=== PATIENT | female | born 1960 | race Caucasian/White ===

== ENCOUNTER 2021-11-15 10:04 | Outpatient (CLI) | payer BC, SELFPAY | END 2021-11-15 10:05 | disposition home or self-care (01) | LOC: NFLDREF 10:05 | PROVIDERS: PCP Internal Medicine; Visit Provider Registered Nurse | DX: E03.9 Hypothyroidism, unspecified (principal) | CPT/HCPCS: 84443 ==

== ENCOUNTER 2021-11-20 11:24 | Outpatient (CLI) | payer BC, SELFPAY ==
[2021-11-20 15:40] LABS: Cholesterol* 197 mg/dL (90-199)
[2021-11-20 15:41] LABS: HDL Cholesterol* 59 mg/dL (>=50); LDL Cholesterol Calculated 111 mg/dL (<100); Triglycerides* 136 mg/dL (40-149)
== END 2021-11-20 11:25 | disposition home or self-care (01) ==
LOC: NFLDREF 11:26
PROVIDERS: PCP Internal Medicine; Visit Provider Internal Medicine
DX: E78.5 Hyperlipidemia, unspecified (principal); E03.9 Hypothyroidism, unspecified; E66.9 Obesity, unspecified
CPT/HCPCS: 80061

== ENCOUNTER 2022-01-17 10:06 | Outpatient (CLI) | payer BC, SELFPAY ==
--- OUTSIDE RECORDS SUMMARY | 2022-01-17 10:08 | XMS_ITS | Clinical Summary ---
:1960 Author Organization [facility] [place] [address] Care Team Providers Name Role Phone Darby Bajwa MD Primary Care Provider Allergies No known active allergies Medications Medication Sig Dispensed Refills Start Date End Date Status METHOTREXATE SODIUM 2.5 taking 45 mg on 0 01/03/2009 Active MG TAB sundays TRIMETHOPRIM-SULFAMETHO daily 0 01/03/2009 Active XAZOLE 160 MG-800 MG TAB CALCIUM CITRATE + D 500 daily 0 01/03/2009 Active MG-200 UNIT CREAMY BITE CLONAZEPAM 0.5 MG TAB as hs for sleep 0 01/03/2009 Active FISH OIL 1,000 MG CAP 4162-3893 mg EPA 0 01/03/2009 Active + DHA daily VALTREX 1 G TAB take 1 caplet 0 01/03/2009 Active (1,000 mg) by oral route every 12 hours MULTIVITAMIN TAB take 1 tablet by 0 01/31/2009 Active oral route once daily with food COENZYME Q10 100 MG CAP Once daily 0 01/31/2009 Active Active Problems Problem Noted Date Leukemia 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, diagnosed at [facility] , on methotrexate and prednisone Immunizations Name Administration Dates Next Due Influenza, IIV3 (Age >=3 years) 02/25/2008, 03/12/2007 Family History Medical History Relation Name Comments Heart Disease Father Other Sister 3 pancytopenia Relation Name Status Comments Father Alive Mother Alive Sister 1 Alive Sister 2 Alive Sister 3 Social History Tobacco Use Types Packs/Day Years Used Date Never Smoker Alcohol Use Standard Drinks/Week Comments Yes 0 (1 standard drink = 0.6 oz pure at mos t one glass of wine daily alcohol) Alcohol Habits Answer Date Recorded How often do you have a drink Not asked containing alcohol? How many drinks containing alcohol do Not asked you have on a typical day when you are drinking? How often do you have six or more Not asked drinks on one occasion? Comment: at most one glass of wine daily 01/04/20 09 Sex Assigned at Date Recorded Not on file Obstetrics History Last Filed Vital Signs Vital Sign Reading Time Taken Comments Blood Pressure 109/70 01/31/2009 12:49 PM CDT Pulse 94 01/31/2009 12:49 PM CDT Temperature 36.7 ??C (98.1 ??F) 02/25/2008 12:13 PM PLASTICATOR Respiratory Rate - - Oxygen Saturation 100% 04/28/2008 1:03 PM PLASTICATOR Inhaled Oxygen Concentration - - Weight 78.4 kg (172 lb 12.8 oz) 01/31/2009 12:49 PM CDT Height - - Body Mass Index - - Plan of Treatment Health Maintenance Due Date Last Done Comments COVID-19 vaccine series (#1) 03/25/1962 Tdap 1972 Depression screening for age 12+ 1973 BMI (ht and wt on same day) for age 18+ 09/24/1979 Hepatitis C screening for age 18-79 09/24/1979 Tetanus booster 1981 Pap test for age 21-65 1982 Lipids for age 45-75 2006 Mammogram for age 45-75 2006 Zoster (shingles) series for age 50+ (1 of 09/24/2011 2) Influenza for age 50-64 12/14/2021 02/25/2008, 03/12/2007 Colonoscopy through age 75 01/03/2030 01/04/2020, 0 Results Not on filefrom Last 3 Months Insurance Payer Benefit Plan / Subscriber ID Effective Dates Phone Addre ss Type Group [facility] [id number] 2019-Present [address] [address] [place] [address] Care Teams Fern Cutter Relationship Specialty Start Date End Date Darby Bajwa MD PCP - General 01/31/09
--- NOTE | 2022-01-17 10:15 | CRLHL7_ITS ---
For Patients: As a result of the Century Cures Act, medical imaging exams and procedure reports are released immediately into your electronic medical record. You may view this report before your referring provider. If you have questions, please contact your health care provider. BILATERAL SCREENING MAMMOGRAM WITH COMPUTER-AIDED DETECTION AND TOMOSYNTHESIS TECHNIQUE: CC and MLO views were obtained. These mammographic images have been obtained using full-field digital technique. These mammographic images were interpreted with the benefit of computer-aided detection. Breast Tomosynthesis was used in this interpretation. COMPARISON FILM: 02/14/21, 02/24/20, 03/10/19. FINDINGS: The breasts are heterogeneously dense, which may obscure small masses IMPRESSION: There is no radiographic evidence for malignancy. ASSESSMENT: BI-RADS Category 2: Benign RECOMMENDATION: Routine screening mammogram in 1 year. A lay language report of this examination will be provided to the patient. Isa Enriquez M.D. Diagnostic/Breast Radiologist [email or web address] LUIS/Dictated by: Isa Enriquez MD @ 01/18/2022 9:02:00 AM (Electronically Signed)
== END 2022-01-17 10:07 | disposition home or self-care (01) ==
PROVIDERS: PCP Internal Medicine; Visit Provider Registered Nurse
DX: Z12.31 Encounter for screening mammogram for malignant neoplasm of breast (principal); R92.2 Inconclusive mammogram
CPT/HCPCS: 77063; 77067

== ENCOUNTER 2022-11-20 14:08 | Outpatient (CLI) | payer BC, SELFPAY | END 2022-11-20 14:09 | disposition home or self-care (01) | LOC: NFLDREF 14:09 | PROVIDERS: PCP Internal Medicine; Visit Provider Registered Nurse | DX: Z01.419 Encounter for gynecological examination (general) (routine) without abnormal findings (principal); E03.9 Hypothyroidism, unspecified | CPT/HCPCS: 84443 ==

== ENCOUNTER 2022-12-18 08:31 | Outpatient (CLI) | payer BC, SELFPAY | END 2022-12-18 08:32 | disposition home or self-care (01) | LOC: NFLDREF 12:52 | PROVIDERS: PCP Internal Medicine; Referring Provider Internal Medicine; Visit Provider Internal Medicine | DX: E03.9 Hypothyroidism, unspecified (principal); M85.80 Other specified disorders of bone density and structure, unspecified site; E78.5 Hyperlipidemia, unspecified | CPT/HCPCS: 80061; 82306; 84443 ==

== ENCOUNTER 2023-03-15 12:56 | Outpatient (CLI) | payer BC, SELFPAY ==
--- NOTE | 2023-03-15 13:00 | CRLHL7_ITS ---
For Patients: As a result of the Century Cures Act, medical imaging exams and procedure reports are released immediately into your electronic medical record. You may view this report before your referring provider. If you have questions, please contact your health care provider. BILATERAL SCREENING MAMMOGRAM WITH COMPUTER-AIDED DETECTION AND TOMOSYNTHESIS TECHNIQUE: CC and MLO views were obtained. These mammographic images have been obtained using full-field digital technique. These mammographic images were interpreted with the benefit of computer-aided detection. Breast Tomosynthesis was used in this interpretation. COMPARISON FILM: 01/17/22, 02/14/21, 02/24/20. FINDINGS: The breasts are heterogeneously dense, which may obscure small masses IMPRESSION: There is no radiographic evidence for malignancy. ASSESSMENT: BI-RADS Category 1: Negative RECOMMENDATION: Routine screening mammogram in 1 year. A lay language report of this examination will be provided to the patient. Slava Pacheco M.D. Diagnostic Radiologist [email or web address] Transcribed: 5:47 p.mIgor strickland/Dictated by: Slava Pacheco MD @ 03/18/2023 12:27:00 PM (Electronically Signed)
== END 2023-03-15 12:57 | disposition home or self-care (01) ==
LOC: MAMMO 12:57
PROVIDERS: PCP Internal Medicine; Visit Provider Internal Medicine
DX: Z12.31 Encounter for screening mammogram for malignant neoplasm of breast (principal); R92.2 Inconclusive mammogram
CPT/HCPCS: 77063; 77067

== ENCOUNTER 2023-09-23 15:30 | Outpatient (RCR) | payer BC, SELFPAY | END 2024-01-21 23:59 | disposition home or self-care (01) | PROVIDERS: PCP Internal Medicine; Visit Provider Family Medicine | DX: M25.552 Pain in left hip (principal); G89.29 Other chronic pain; M16.12 Unilateral primary osteoarthritis, left hip; M25.852 Other specified joint disorders, left hip; M25.652 Stiffness of left hip, not elsewhere classified; Z51.89 Encounter for other specified aftercare | CPT/HCPCS: 97110; 97140; 97161 ==

== ENCOUNTER 2023-12-18 13:52 | Outpatient (CLI) | payer BC, SELFPAY ==
--- OUTSIDE RECORDS SUMMARY | 2023-12-18 13:54 | XMS_ITS | Clinical Summary ---
Author Organization [facility] Address [address] [place] [address] Care Team Providers Care [employer] Name Role Phone Elsewhere, Pcp Primary Care Provider Unavailabl e Source Comments Patient records contain information from all sites at [facility]. For routine questions regarding patient records, call [phone] during business hours, M-F 8:00 AM - 5:00 PM Central Time. Record requests for emergency care only can be directed to [phone] at any time.[facility] Allergies Active Allergy Reactions Criticality Noted Date Comments Ceftriaxone Anaphylaxis High 09/27/2008 Itching/tightening inside throat Medications Medication Sig Dispensed Refills Start Date End Date Status calcium carbonate/vitamin D3 (CALCIUM 500 + D, D3, ORAL) Take 1 tablet by mouth daily. 03/18/2017 Active cholecalciferol (cholecalciferol) 1,000 Unit tablet Take 1 tablet by mouth daily. 10/26/2010 Active multivitamin tablet Take 1 tablet by mouth daily. 03/18/2017 Active levothyroxine (SYNTHROID, LEVOTHROID) 88 mcg tablet Take 1 tablet (88 mcg total) by mouth daily. 90 tablet 3 10/08/2017 Active acyclovir (ZOVIRAX) 400 mg tablet Take 1 tablet (400 mg total) by mouth as needed (as needed for cold sores). 11/11/2020 Active CALCIUM CITRATE-VITAMIN D3 ORAL Take by mouth daily. 01/03/2009 Active CeleBREX 200 mg capsule Take 200 mg by mouth as needed. 08/14/2023 Active folic acid 400 mcg tablet Take 400 mcg by mouth daily. Active simvastatin (Zocor) 10 mg tablet Take 10 mg by mouth daily. 06/08/2023 Active alendronate (Fosamax) 35 mg tablet Take 35 mg by mouth daily. 08/27/2023 Active valACYclovir (Valtrex) 1000 mg tablet Take 1,000 mg by mouth as needed. 01/03/2009 Active Active Problems Problem Noted Date Diagnosed Date Other Specified Aplastic Ane mias And Other Bone Marrow Failure Syndromes 11/05/2019 Overview (11/05/2019): 1. ??September 27, 2008. Presented with dyspnea and pancytopenia. ??Viral and nutritional workup neg. ??PNH negative. Bone marrow biopsy 30% cellular marrow with some areas of regeneration. There were no dysmorphic features identified. Chromosomes, flow cytometry, and MDS FISH panel normal. ??Clonal T-cell gene rearrangements detected raising the possibility of T-cell LGL leukemia, though no diagnostic morphologic features present. 2. ??October 27, 2008. Initiated treatment with prednisone 60 mg daily for 6 weeks. ??Improvement in neutropenia and transfusion requirements. ?? 3. ??Dec 09, 2008. Begin steroid taper and initiate treatment with Methotrexate. 4. ??January 20, 2009. ??Finished steroids. ??Continued methotrexate. ??Neutropenia improved, but thrombocytopenia and anemia persisted. LGL cells present in blood. 5. ??May 05, 2008. ??Counts continued to trend down on methotrexate. ??Methotrexate stopped and initiated therapy with cyclosporine. 6. ??August of 2008, increased creatinine and hypertension. ??Cyclosporin stopped with no improvement in counts. 7. ??November 2009, evaluation at [facility] by Dr. Jung, initiated treatment with Cytoxan 100 mg daily. 8. ??January 2010, severe pancytopenia following initial Cytoxan which was held. ??A re-trial of Cytoxan resulted in repeat episode of severe pancytopenia. ??Patient treated with antibiotics for bronchial infection. ??Cytoxan stopped. 9. ??March 02, 2010, re-evaluation at [facility]. 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 ??There was no diagnostic morphologic, flow, or molecular genetic features involvement of LGL leukemia. ??Remained severely pancytopenic with red blood cell transfusion requirements every two weeks. ?? 10. ??March 13 through March 19, 2010, hospitalized for treatment with steroids, ATG, and cyclosporin. ??Complications with asymptomatic sinus bradycardia requiring monitoring. ??LFT elevations and cyclosporin held. ??Patient started on tacrolimus. ??Steroids finished June 01, 2010. 11. ??May 2010 to present, continues on tacrolimus. ??Bone marrow biopsy November 06, 2010, reveals increase in cellularity to 40% with otherwise unremarkable erythropoiesis and no diagnostic features of a myelodysplastic syndrome or lymphoproliferative disorder. ??T-cell receptor gene rearrangement studies were negative, although a very small PNH clone was slightly increased on [facility] flow evaluation. ??In calendar year 2010, Mrs. Yuan required transfusion of 6 units of packed red blood cells. 12. ??January 2012, the patient went to [facility] and met with Dr. Joey Villarreal for a second opinion. ??Recommendations were to continue current management as she was not eligible for any clinical trials. 13. ??Patient had relatively stable counts and did not require any transfusions since November 08, 2011. 14. ??September 14, 2015, initiated taper of tacrolimus, given stable counts over the past two years. 15. ??January 13, 2016, completed the tacrolimus taper. 16. 11/05/19 : counts are all stable - will discuss with Dr. Bloom seeing her at one year interval Assessment & Plan (11/05/2019 4:39 PM CDT): She is doing excellent and her counts also look very good. The PNH is still pending. We will plan to to mail-in labs in 6 months and return visit in one year. I will discuss with Dr. Bloom if this sounds reasonable. PLAN: ?? CBC in 6 months mail in ?? Return visit in 1 year Anemia Aplastic 03/02/2010 Resolved Problems Problem Noted Date Diagnosed Date Resolved Date Pancytopenia 09/27/2008 11/14/2020 Encounters Date Type Department Care Team Description 12/13/2023 Orders Only Department of Orthopedic Surgery in [place], [place] [address] [place] [address] Cari Núñez, RIgorN. Primary Osteoarthritis Hip Left (Primary Dx); Pain Hip Left 12/11/2023 3:00 PM CDT Telemedicine Department of Patient Education in [address] [phone] Mohit Stephenson M.D. Primary Osteoarthritis Hip Left 11/20/2023 Clinical Communication Department of Orthopedic Surgery in [address] [phone] Luciano Shepherd M.D. Document needed from Pre-cert 10/24/2023 Orders Only Department of Orthopedic Surgery in [address] [phone] Cari Núñez R.N. Allergy Antibiotic Personal History (Primary Dx); Primary Osteoarthritis Hip Left; Pain Hip Left; Anemia Aplastic (HCC); Preanesthetic Medical Exam 10/23/2023 11:45 AM CDT Office Visit Department of Orthopedic Surgery in [address] [phone] Luciano Shepherd M.D. Primary Osteoarthritis Hip Left (Primary Dx) 10/23/2023 11:00 AM CDT Ancillary Procedure Department of Orthopedic Surgery 10/23/2023 10:26 AM CDT - 10/23/2023 11:59 PM CDT Hospital Encounter Department of Radiology, [facility], in [address] [phone] Luciano Shepherd M.D. Pain Hip Left Discharge Disposition: Home or Self Care 10/21/2023 12:30 PM CDT Clinical Communication Virtual Review in [address] [address] Pre-visit Intake 10/21/2023 Clinical Communication Department of Orthopedic Surgery in [address] [phone] Luciano Shepherd M.D. Phone Contact 09/30/2023 Clinical Communication Department of Orthopedic Surgery in [address] [address] Luciano Shepherd M.D. Appointment (Return left hip) from Last 3 Months Immunizations Name Administration Dates Next Due Influenza Split 01/15/2011 PPSV23 04/15/2011 SARS-COV-2 (COVID-19) - MODERNA(Discontinued) Tdap 04/15/2010,10/13/2002 Social History Tobacco Use Types Packs/Day Years Used Date Smoking Tobacco: Never Smokeless Tobacco: Never [facility] Utilities Answer Date Recorded In the past 12 months has th e electric, gas, oil, or water company threatened to shut off services in your home? No 10/18/2023 Exercise Vital Sign Answer Date Recorde d On average, how many days pe r week do you engage in moderate to strenuous exercise (like a brisk walk)? 0 days 10/18/2023 On average, how many minutes do you engage in exercise at this level? 10 min 10/18/2023 Hunger Vital Sign Answer Date Recorded Within the past 12 months, y ou worried that your food would run out before you got the money to buy more. Never true 10/18/19 Within the past 12 months, t he food you bought just didn't last and you didn't have money to get more. Never true 10/18/2023 PRAPARE - Transportation Answer Date Re corded In the past 12 months, has l ack of transportation kept you from medical appointments or from getting medications? No 08/2023 In the past 12 months, has l ack of transportation kept you from meetings, work, or from getting things needed for daily living? No 10/18/2023 Nutrition Answer Date Recorded On average, how many serving s of fruits and vegetables do you eat per day (serving size is equal to 1 cup or approximately the size of a tennis ball)? 0-2 10/18/2023 Dental Answer Date Recorded Dental: Regular Dentist Yes 10/18/19 Employment Answer Date Recorded Employment status Employed and actively working without restrictions 10/18/2023 Housing Stability Answer Date Recorded What is your living situation today? I have a [facility] place to live 10/18/2023 Sex and Gender Information Value Date Recorded Sex Assigned at Female 01/02/2021 12:49 PM CDT Gender Identity Female 01/02/2021 12:49 PM CDT Sexual Orientation Straight 01/02/2021 12 :49 PM CDT Last Filed Vital Signs Vital Sign Reading Time Taken Comments Blood Pressure 131/82 11/11/2020 10:01 AM CDT Pulse 59 11/11/2020 10:01 AM CDT Temperature 36.1 ??C (96.9 ??F) 11/11/2020 10:01 AM C DT Respiratory Rate - - Oxygen Saturation - - Inhaled Oxygen Concentration - - Weight 91.3 kg (201 lb 6.2 oz) 11/11/2020 10:01 AM CDT Height 167.9 cm (5' 6.1) 11/11/2020 10:01 AM CD T Body Mass Index 32.4 11/11/2020 10:01 AM CDT Plan of Treatment Upcoming Encounters Date Type Department Care Team (Latest Contact Info) Description 12/24/2023 10:15 AM CDT Clinical Communication Virtual Review in [place], [place] [address] [place] [address] 12/25/2023 10:20 AM CDT Appointment Department of Laboratory Medicine in [address] [phone] Luciano Shepherd M.D. [address] [place] [phone] 12/26/2023 10:00 AM CDT Office Visit Department of Orthopedic Surgery in [address] [phone] Luciano Shepherd M.D. [address] [place] [phone] Cari Núñez R.N. [address] [place] [phone] 12/26/2023 11:00 AM CDT Comprehensive Visit Department of Physical Medicine and Rehabilitation in [place], [place] [address] [place] [phone] Mohit Stephenson M.D. [address] [place] [phone] Rossy Carlson, [facility] 12/26/2023 1:15 PM CDT Clinical Support Division of Allergic Diseases in [place], [place] [address] [place] [phone] Luciano Shepherd M.D. [address] [place] [phone] 12/26/2023 2:00 PM CDT Comprehensive Visit Division of Allergic Diseases in [place], [place] [address] [place] [phone] Kailey Li P.A.-Megan., M.S. [address] [place] [phone] 12/26/2023 3:00 PM CDT Comprehensive Visit Preoperative Evaluation Center in [place], [place] [address] [place] [phone] Luciano Shepherd M.D. [address] [place] [phone] 12/27/2023 8:00 AM CDT Comprehensive Visit Department of Physical Medicine and Rehabilitation in [place], [place] [address] [place] [phone] Mohit Stephenson M.D. [address] [place] [phone] Jennifer Garcia O.T., MOT [address] [place] [phone] 12/30/2023 7:55 AM CDT Hospital Encounter [facility] 01 4 AM ADMIT [address] [place] [phone] Luciano Shepherd M.D. [address] [place] [phone] 12/30/2023 7:55 AM CDT - 12/30/2023 10:32 AM CDT Surgery [facility] [address] [place] [address] Luciano Shepherd M.D. [address] [place] [address] ARTHROPLASTY REPLACEMENT TOTAL HIP with computer-assisted navigation (OrthAlign) Scheduled Procedures Name Priority Associated Diagnoses Date/Ti me ARTHROPLASTY REPLACEMENT TOTAL HIP Other Specified Arthritis Left Hip 12/30/2023 7:55 AM CDT Health Maintenance Due Date Last Done Comments CT Colonography 1960 Cologuard 1960 FIT 1960 Cervical Cancer Screening 10/11/20132010 (Performed elsewhere) Mammogram 01/13/2014 01/13/2013 (Perf ormed elsewhere), 01/14/2012 (Performed elsewhere), 10/18/2010 (Performed elsewhere) Lipid (Cholesterol) Screening 10/12/2015 10/11/2010 (Performed elsewhere) Thyroid Stimulating Hormone (TSH) test for thyroid function 09/16/2018 09/16/2017, 03/18/2017, 09/19/2016, Additional history exists Depression Screening (Annual PHQ-2) 04/15/2023 Fasting Glucose for Diabetes Screening 11/11/2023 11/10/2020, 03/14/2016, 01/25/2014, Additional history exists Influenza Vaccine (#1) 2024 3, 02/01/2022, 01/16/2021, Additional history exists Colonoscopy 01/03/2030 01/04/2020, 10/13, 10/13/2010 (Performed elsewhere) Colorectal Cancer Screening 01/03/2030 DTaP,Tdap,and Td Vaccines (4 - Td or Tdap) 01/16/2031 01/16/2021, 04/15/2010, 10/13/2002 HIV Screening Completed 09/27/2008 Hepatitis C Screening Completed 09/27/2008 Pneumococcal vaccine (0-64 years) Aged Out 01/17/2012, 04/15/2011 No longer eligibl e based on patient's age to complete this topic Zoster Vaccines Completed 05/27/2019, 03/27/2019 COVID-19 Vaccine Completed 01/10/2023, 09/2021, 07/18/2021, Additional history exists HPV Vaccines Aged Out No longer eligi ble based on patient's age to complete this topic Procedures Procedure Name Priority Date/Time Associated Diagnosis Comments ORTHOPEDIC SURGERY IMAGE EXAM Routine 10/23/2023 11:00 AM CDT DX HIP AND PELVIS LEFT 2-3 VIEWS RAD - Routine (most inpatients and all outpatients) 10/23/2023 10:44 AM CDT Pain Hip Left BASIC METABOLIC PANEL, S/P Routine 11/10/2020 10:19 AM CDT Pancytopenia (HCC) Anemia Aplastic (HCC) Other Specified Aplastic Anemias And Other Bone Marrow Failure Syndromes (HCC) THYROID FUNCTION CASCADE, S Routine 09/16/2017 11:44 AM CDT Anemia Aplastic (HCC) from Last 3 Months or Most Recently Relevant to Health Maintenance Results * DX HIP AND PELVIS LEFT 2-3 VIEWS-Orthopedic Surgery Image Exam (10/23/2023 11:00 AM CDT) Narrative IIMS - 12/16/2023 1:14 PM CDT This order has been created and auto-finalized to support the import of images acquired without order. The clinical documentation to support these images can be found on the encounter that produced images. Provider Not In System IMG NON RAD IMAGI NG PROCEDURES IIMS NA * DX Hip And Pelvis Left 2-3 Views (10/23/2023 10:44 AM CDT) Anatomical Region Laterality Modality Lower Extremity, Pelvis, Hip , Musculoskeletal RST LOS, Musculoskeletal ARZ LOS, Muskuloskeletal FLA LOS Left Digit al Radiography Impressions 10/23/2023 11:15 AM CDT Severe degenerative changes of the bilateral hip joints, left greater than right. Large osteophyte formation in the left hip joint with subchondral sclerosis and cystic changes, progressed since 2012. No discrete subchondral collapse. No acute fracture or dislocation. Scattered degenerative changes of the visualized lumbar spine and pubic symphysis. Narrative 10/23/2023 11:15 AM CDT EXAM: ??DX HIP AND PELVIS LEFT 2-[address] Reddy M.D. - 10/23/2023 EXAM: DX HIP AND PELVIS LEFT 2-3 VIEWS IMPRESSION: Severe degenerative changes of the bilateral hip joints, left greater thanright. Large osteophyte formation in the left hip joint with subchondralsclerosis and cystic changes, progressed since 2012. No discretesubchondral collapse. No acute fracture or dislocation. Scattered degenerative changes of thevisualized lumbar spine and pubic symphysis. Luciano Shepherd M.D. [facility] ING PROCEDURES * (ABNORMAL) Basic Metabolic Panel (11/10/2020 10:19 AM CDT) Potassium, P 4.8 3.6 - 5.2 mmol/L 11/10/2020 10:57 AM CDT CNFL Sodium, P 137 135 - 145 mmol/L 11/10/2020 10:57 AM CDT CNFL Chloride, P 104 98 - 107 mmol/L 11/10/2020 10:57 AM CDT CNFL Bicarbonate, P 23 22 - 29 mmol/L 11/10/2020 10:57 AM CDT CNFL Anion Gap, P 10 7 - 15 11/10/2020 10:57 AM CDT CNFL BUN (Blood Urea Nitrogen), P 22(H) 6 - 21 mg/dL 11/10/2020 10:57 AM CDT CNFL Creatinine 1.21(H) 0.59 - 1.04 mg/dL 11/10/2020 10:57 AM CDT CNFL eGFR-Black/Afri can Prydeinig 57(L) >=60 mL/min/BSA 11/10/2020 10:57 AM CDT CNFL Comment: ----ADDITIONAL INFORMATION---- Estimated GFR calculated using the 2009 CKD_EPI creatinine equation. eGFR Non-Black/Afric an Prydeinig 49(L) >=60 mL/min/BSA 11/10/2020 10:57 AM CDT CNFL Comment: ----ADDITIONAL INFORMATION---- Estimated GFR calculated using the 2009 CKD_EPI creatinine equation. Calcium, Total, P 9.3 8.6 - 10.0 mg/dL 11/10/2020 10:57 AM CDT CNFL Glucose, P 105 70 - 140 mg/dL 11/10/2020 10:57 AM CDT CNFL Blood (Blood, Venous) 11/10/2020 10:19 AM CDT 11/10/2020 10:21 AM CDT Gene Parr M.D. LAB BLOOD ADD-ON [facility] [address] [place] [address], [facility] [place] [address] * Thyroid Function [place] (09/16/2017 11:44 AM CDT) TSH, Sensitive 3.8 0.3 - 4.2 mIU/L 09/16/2017 12:56 PM CDT [facility] Blood 09/16/2017 11:4 4 AM CDT 09/16/2017 12:06 PM CDT Iqra Hurt M.D., M.P.H. LAB BLOOD ADD -ON [facility] [address] [place] [id number] from Last 3 Months or Most Recently Relevant to Health Maintenance Care Teams [employer] Relationship Specialty Start Date End Date Elsewhere, Pcp PCP - General Family Medicine 12/01/20
--- OUTSIDE RECORDS SUMMARY | 2023-12-18 13:55 | XMS_ITS | Encounter Summary ---
Author Organization [facility] Address [address] [place] [address] Care Team Providers Care Body And Fender Mechanic Name Role Phone Elsewhere, Pcp Primary Care Provider Unavailabl e Reason for Visit * Reason Comments Patient Education Encounter Details Date Type Department Care Team (Latest Contact Info) Description 12/11/2023 3:00 PM CDT Telemedicine Department of Patient Education in [place], [place] [address] [place] [address] Mohit Stephenson M.D. [address] [place] [phone] Primary Osteoarthritis Hip Left Social History Tobacco Use Types Packs/Day Years Used Date Smoking Tobacco: Never Smokeless Tobacco: Never [facility] Utilities Answer Date Recorded In the past 12 months has [facility] [employer], gas, oil, or water [employer] threatened to shut off services in your [...] money to buy more. Never true 10/18/19 24 Within the past 12 months, t he [...] your living situation today? I have a [facility] place to live 10/18/2023 Sex and Gender Information Value Date Recorded Sex Assigned at Female 01/02/2021 12:49 PM CDT Gender Identity Female 01/02/2021 12:49 PM CDT Sexual Orientation Straight 01/02/2021 12 :49 PM CDT documented as of this encounter Plan of Treatment Upcoming Encounters Date Type Department Care Team (Latest Contact Info) Description 12/24/2023 10:15 AM CDT Clinical Communication Virtual Review in [place], [place] 200 [place] [address] 12/25/2023 10:20 AM CDT Appointment Department of Laboratory Medicine in [address] [phone] Luciano Shepherd M.D. [address] [place] [phone] 12/26/2023 10:00 AM CDT Office Visit Department of Orthopedic Surgery in [place], [place] [address] [place] [phone] Luciano Shepherd M.D. [address] [place] [phone] Cari Núñez R.N. [address] [place] [phone] 12/26/2023 11:00 AM CDT Comprehensive Visit Department of Physical Medicine and Rehabilitation in [place], [place] [address] [place] [phone] Mohit Stephenson M.D. [address] [place] [phone] Rossy Calrson, [facility] 12/26/2023 1:15 PM CDT Clinical Support Division of Allergic Diseases in [place], [place] [address] [place] [phone] Luciano Shepherd M.D. [address] [place] [phone] 12/26/2023 2:00 PM CDT Comprehensive Visit Division of Allergic Diseases in [place], [place] [address] [place] [phone] Kailey Li, P.A.-C., M.S. [address] [place] [phone] 12/26/2023 3:00 PM CDT Comprehensive Visit Preoperative Evaluation Center in [place], [place] [address] [place] [phone] Luciano Shepherd M.D. [address] [place] [phone] 12/27/2023 8:00 AM CDT Comprehensive Visit Department of Physical Medicine and Rehabilitation in [place], [place] [address] [place] [phone] Mohit Stephenson M.D. [address] [place] [phone] Jennifer Garcia O.T., [facility] [address] [place] [phone] 12/30/2023 7:55 AM CDT Hospital Encounter [facility] 01 4 AM ADMIT [address] [place] [address] Luciano Shepherd M.D. [address] [place] [phone] 12/30/2023 7:55 AM CDT - 12/30/2023 10:32 AM CDT Surgery RST RO MAIN OR [address] [place] [address] Luciano Shepherd M.D. [address] [place] [phone] ARTHROPLASTY REPLACEMENT TOTAL HIP with computer-assisted navigation (OrthAlign) Scheduled Procedures Name Priority Associated Diagnoses Date/Ti me ARTHROPLASTY REPLACEMENT TOTAL HIP Other Specified Arthritis Left Hip 12/30/2023 7:55 AM CDT documented as of this encounter Visit Diagnoses Diagnosis Primary Osteoarthritis Hip Left Other Specified Arthritis Left Hip documented in this encounter Care Teams Body And Fender Mechanic Relationship Specialty Start Date End Date Elsewhere, Pcp PCP - General Family Medicine 12/01/20 documented as of this encounter
--- OUTSIDE RECORDS SUMMARY | 2023-12-18 13:55 | XMS_ITS | Encounter Summary ---
Author Organization [facility] Address [address] [place] [address] Care Team Providers Care Data Management Name Role Phone Elsewhere, Pcp Primary Care Provider Unavailabl e Reason for Visit * Reason Onset Date Comments Pre-visit Intake 10/21/2023 Encounter Details Date Type Department Care Team (Latest Contact Info) Description 10/21/2023 12:30 PM CDT Clinical Communication Virtual Review in [place], [place] 200 [place] [address] Pre-visit Intake Social History Tobacco Use Types Packs/Day Years Used Date Smoking Tobacco: Never Smokeless Tobacco: Never [facility] Utilities Answer Date Recorded In [...] your living situation today? I have a [facility] place to live 10/18/2023 Sex and Gender Information Value Date Recorded Sex Assigned at Female 01/02/2021 12:49 PM CDT Gender Identity Female 01/02/2021 12:49 PM CDT Sexual Orientation Straight 01/02/2021 12 :49 PM CDT documented as of this encounter Plan of Treatment Upcoming Encounters Date Type Department Care Team (Latest Contact Info) Description 12/24/2023 10:15 AM CDT Clinical Communication Virtual Review in [place], [place] 200 [place] [address] 12/25/2023 10:20 AM CDT Appointment Department of Laboratory Medicine in [address] [phone] Luciano Shepherd M.D. [address] [place] [phone] 12/26/2023 10:00 AM CDT Office Visit Department of Orthopedic Surgery in [place], [place] [address] [place] [phone] Luciano Shepherd M.D. [address] [place] [phone] Cari Núñez R.N. [address] [place] [phone] 12/26/2023 11:00 AM CDT Comprehensive Visit Department of Physical Medicine and Rehabilitation in [place], [place] [address] [place] [address] Mohit Stephenson M.D. [address] [place] [phone] Rossy Carlson, [facility] 12/26/2023 1:15 PM CDT Clinical Support Division of Allergic Diseases in [place], [place] [address] [place] [phone] Luciano Shepherd M.D. [address] [place] [phone] 12/26/2023 2:00 PM CDT Comprehensive Visit Division of Allergic Diseases in [place], [place] [address] [place] [address] Kailey Li, P.Katheryn.-Megan., M.S. [address] [place] [phone] 12/26/2023 3:00 PM CDT Comprehensive Visit Preoperative Evaluation Center in [place], [place] [address] [place] [address] Luciano Shepherd M.D. [address] [place] [phone] 12/27/2023 8:00 AM CDT Comprehensive Visit Department of Physical Medicine and Rehabilitation in [place], [place] [address] [place] [address] Mohit Stephenson M.D. [address] [place] [phone] Jennifer Garcia O.T., MOT [address] [place] [phone] 12/30/2023 7:55 AM CDT Hospital Encounter [facility] 01 4 AM ADMIT [address] [place] [address] Luciano Shepherd M.D. [address] [place] [address] 12/30/2023 7:55 AM CDT - 12/30/2023 10:32 AM CDT Surgery [facility] MAIN OR [address] [place] [address] Luciano Shepherd M.D. [address] [place] [address] ARTHROPLASTY REPLACEMENT TOTAL HIP with computer-assisted navigation (OrthAlign) Scheduled Procedures Name Priority Associated Diagnoses Date/Ti me ARTHROPLASTY REPLACEMENT TOTAL HIP Other Specified Arthritis Left Hip 12/30/2023 7:55 AM CDT documented as of this encounter Visit Diagnoses Not on filedocumented in this encounter Care Teams Data Management Relationship Specialty Start Date End Date Elsewhere, Pcp PCP - General Family Medicine 12/01/20 documented as of this encounter
--- OUTSIDE RECORDS SUMMARY | 2023-12-18 13:55 | XMS_ITS | Clinical Summary ---
Author Organization [facility] Address [place], [place] [address] Care Team Providers Care Flap Curer Name Role Phone Darby Bajwa MD Primary Care Provider [phone] Allergies Active Allergy Reactions Criticality Noted Date Comments Ceftriaxone Anaphylaxis High 09/27/2008 Itching/tightening inside throat Medications Medication Sig Dispensed Refills Start Date End Date Status CALCIUM CITRATE + D 500 MG-200 UNIT CREAMY BITE daily 0 01/03/2009 Active VALTREX 1 G TAB take 1 caplet (1,000 mg) by oral route every 12 hours 0 01/03/2009 Active levothyroxine (SYNTHROID) 88 mcg tablet 05/19/2023 Active simvastatin (ZOCOR) 10 mg tablet 06/08/2023 Active folic acid 400 mcg tablet Take 400 mcg by mouth once daily. 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 10/02/2023 Travel 2023 Telephone [facility] [address] [place] [address] Bijan Tidwell MD Referral 2023 Orders Only [facility] [address] [place] [address] Bijan Tidwell MD Hip Pain/problem from Last 3 Months Immunizations Name Administration Dates Next Due Influenza, IIV3 (Age >=3 years) 02/25/2008,03/12 Family History Medical History Relation Name Comments Heart Disease Father Other Sister 3 pancytopenia Relation Name Status Comments Father Alive Mother Alive Sister 1 Alive Sister 2 Alive Sister 3 Social History Tobacco Use Types Packs/Day Years Used Date Smoking Tobacco: Never Smokeless Tobacco: Never Tobacco Cessation:Counseling Given: Yes Alcohol Use Standard Drinks/Week Comments Yes 0 (1 standard drink = 0.6 oz pure alcohol) at most one glass of wine daily Social Connections Answer Date Recorded Frequency of Communication with Friends and Fami ly Not on file 08/14/2023 Sex and Gender Information Value Date Recorded Sex Assigned at Not on file Gender Identity Not on file Sexual Orientation Not on file Obstetrics History Last Filed Vital Signs Vital Sign Reading Time Taken Comments Blood Pressure 147/90 10/02/2023 7:45 AM CDT Pulse 61 10/02/2023 7:45 AM CDT Temperature 36.4 ??C (97.6 ??F) 10/02/2023 7:45 AM CD T Respiratory Rate - - Oxygen Saturation 98% 10/02/2023 7:45 AM CDT Inhaled Oxygen Concentration - - Weight 92.8 kg (204 lb 9.6 oz) 08/14/2023 9:50 A M CDT Height 167.6 cm (5' 6) 08/14/2023 9:50 AM CDT Body Mass Index 33.02 08/14/2023 9:50 AM CDT Plan of Treatment Health Maintenance Due Date Last Done Comments Pneumococcal series for age 6-64 (1 of 2 - PCV) 09/24/1967 Tdap 1972 Depression screening for age 12+ 1973 HIV for age 15-65 1976 Hepatitis C screening for ag e 18-79 09/24/1979 Zoster (shingles) series for age 50+ (1 of 2) 1980 Tetanus booster 1981 Pap test for age 21-65 1982 Lipids for age 45-75 2006 Mammogram for age 45-75 2006 COVID-19 vaccine series (2022-24 season) 2023 07/18/2021, 12/01/2020, 07/21/2020, Additional history exists Influenza for age 50-64 12/15/2023 02/25/2008, 03/12 BMI (ht and wt on same day) for age 18+ 08/13/2024 08/14/2023 Colonoscopy through age 75 01/03/2030 01/04/2020, Procedures Procedure Name Priority Date/Time Associated Diagnosis Comments BEDSIDE US STUDY ARCHIVE Routine 10/02/2023 9:57 AM CDT Primary osteoarthritis of left hip Chronic left hip pain Left hip impingement syndrome COLONOSCOPY SCREENING Routine 01/04/2020 12:00 AM CDT Encounter for screening colonoscopy from Last 3 Months or Most Recently Relevant to Health Maintenance Results * BEDSIDE US STUDY ARCHIVE (10/02/2023 9:57 AM CDT) Narrative Johanna Weber Kodi - 10/02/2023 9:57 AM CDT The patient was seen for ultrasound guided injection by Dr. Bijan Tidwell. Ultrasound was not used for diagnostic purposes, but to guide the needle placement and document the position of the injection. ?? See patient's EPIC encounter for the detail of the procedure; see KALEB for saved images of the injection. Bijan Tidwell MD PROCEDURE ORD * COLONOSCOPY SCREENING (01/04/2020 12:00 AM CDT) Tano Varela MD GI PROCEDURE ORD from Last 3 Months or Most Recently Relevant to Health Maintenance Care Teams Flap Curer Relationship Specialty Start Date End Date Darby Bajwa MD PCP - General 01/31/09
--- OUTSIDE RECORDS SUMMARY | 2023-12-18 13:55 | XMS_ITS | Referral Summary ---
Author Organization [facility] Address [address] [place] [address] Care Team Providers Care Traffic Lieutenant Name Role Phone Elsewhere, Pcp Primary Care Provider Unavailabl e Source Comments Patient records contain information from all sites at [facility]. For routine questions regarding patient records, call [phone] during business hours, M-F 8:00 AM - 5:00 PM Central Time. Record requests for emergency care only can be directed to [phone] at any time.[facility] Encounters Date Type Department Care Team Description 12/13/2023 Orders Only Department of Orthopedic Surgery in [place], [place] [address] [place] [phone] Cari Núñez RIgorN. Primary Osteoarthritis Hip Left (Primary Dx); Pain Hip Left 12/11/2023 3:00 PM CDT Telemedicine Department of Patient Education in [place], [place] [address] [place] [phone] Mohit Stephenson M.D. Primary Osteoarthritis Hip Left 11/20/2023 Clinical Communication Department of Orthopedic Surgery in [place], [place] [address] [place] [phone] Luciano Shepherd M.D. Document needed from Pre-cert 10/24/2023 Orders Only Department of Orthopedic Surgery in [place], [place] [address] [place] [phone] Cari Núñez R.N. Allergy Antibiotic Personal History (Primary Dx); Primary Osteoarthritis Hip Left; Pain Hip Left; Anemia Aplastic (HCC); Preanesthetic Medical Exam 10/23/2023 11:00 AM CDT Ancillary Procedure Department of Orthopedic Surgery 10/23/2023 10:26 AM CDT - 10/23/2023 11:59 PM CDT Hospital Encounter Department of Radiology, [facility], in [place], [place] [address] [place] [phone] Luciano Shepherd M.D. Pain Hip Left Discharge Disposition: Home or Self Care 10/23/2023 11:45 AM CDT Office Visit Department of Orthopedic Surgery in [address] [phone] Luciano Shepherd M.D. Primary Osteoarthritis Hip Left (Primary Dx) 10/21/2023 Clinical Communication Department of Orthopedic Surgery in [address] [phone] Luciano Shepherd M.D. Phone Contact 10/21/2023 12:30 PM CDT Clinical Communication Virtual Review in [place], [place] 200 [place] [address] Pre-visit Intake 09/30/2023 Clinical Communication Department of Orthopedic Surgery in [address] [phone] Luciano Shepherd M.D. Appointment (Return left hip) from Last 3 Months Allergies Active Allergy Reactions Criticality Noted Date [...] in counts. 7. ??November 2009, evaluation at [facility] by Dr. Jung, initiated treatment with Cytoxan 100 mg daily. 8. ??January 2010, severe pancytopenia following initial Cytoxan which was held. ??A re-trial of Cytoxan resulted in repeat episode of severe pancytopenia. ??Patient treated with antibiotics for bronchial infection. ??Cytoxan stopped. 9. ??March 02, 2010, re-evaluation at [facility]. 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 ??In calendar year 2010, Mrs. Yuan required transfusion of 6 units of packed red blood cells. 12. ??January 2012, the patient went to [facility] and met with Dr. Joey Villarreal for [...] her counts also look very good. The [facility] is still pending. We will plan to to mail-in labs in 6 months and return visit in one year. I will discuss with Dr. Bloom if this sounds reasonable. PLAN: ?? CBC in 6 months mail in ?? Return visit in 1 year Anemia Aplastic 03/02/2010 Resolved Problems Problem Noted Date Diagnosed Date Resolved Date Pancytopenia 09/27/2008 11/14/2020 Immunizations Name Administration Dates Next Due Influenza Split 01/15/2011 PPSV23 04/15/2011 SARS-COV-2 (COVID-19) - MODERNA(Discontinued) Tdap 04/15/2010,10/13/2002 Social History Tobacco Use Types Packs/Day Years Used Date Smoking Tobacco: Never Smokeless Tobacco: Never [facility] Utilities Answer Date Recorded In the [...] your living situation today? I have a [facility] place to live 10/18/2023 Sex and [...] AM CDT Clinical Communication Virtual Review in [place], [place] 200 [place] [address] 12/25/2023 10:20 AM CDT Appointment Department of Laboratory Medicine in [address] [phone] Luciano Shepherd M.D. [address] [place] [phone] 12/26/2023 10:00 AM CDT Office Visit Department of Orthopedic Surgery in [address] [phone] Luciano Shepherd M.D. [address] [place] [phone] Cari Núñez R.N. [address] [place] [phone] 12/26/2023 11:00 AM CDT Comprehensive Visit Department of Physical Medicine and Rehabilitation in [place], [place] [address] [place] [phone] Mohit Stephenson M.D. [address] [place] [phone] Rossy Carlson, [facility] 12/26/2023 1:15 PM CDT Clinical Support Division of Allergic Diseases in [place], [place] [address] [place] [phone] Luciano Shepherd M.D. [address] [place] [phone] 12/26/2023 2:00 PM CDT Comprehensive Visit Division of Allergic Diseases in [place], [place] [address] [place] [phone] Kailey Li P.A.-Megan., M.S. [address] [place] [phone] 12/26/2023 3:00 PM CDT Comprehensive Visit Preoperative Evaluation Center in [place], [place] [address] [place] [phone] Luciano Shepherd M.D. [address] [place] [phone] 12/27/2023 8:00 AM CDT Comprehensive Visit Department of Physical Medicine and Rehabilitation in [place], [place] [address] [place] [phone] Mohit Stephenson M.D. [address] [place] [phone] Jennifer Garcia O.T., MOT [address] [place] [phone] 12/30/2023 7:55 AM CDT Hospital Encounter [facility] 01 4 AM ADMIT [address] [place] [phone] Luciano Shepherd M.D. [address] [place] [phone] 12/30/2023 7:55 AM CDT - 12/30/2023 10:32 AM CDT Surgery [facility] MAIN OR [address] [place] [address] Luciano Shepherd M.D. [address] [place] [address] ARTHROPLASTY REPLACEMENT TOTAL HIP with computer-assisted navigation (OrthAlign) Scheduled Procedures Name Priority Associated Diagnoses Date/Ti me ARTHROPLASTY REPLACEMENT TOTAL HIP Other Specified Arthritis Left Hip 12/30/2023 7:55 AM CDT Procedures Procedure Name Priority Date/Time Associated Diagnosis [...] spine and pubic symphysis. Luciano Shepherd M.D. IMFior DIAGNOSTIC IMAG ING PROCEDURES * (ABNORMAL) Basic [...] 11/10/2020 10:57 AM CDT CNFL eGFR-Black/Afri can Malagasy 57(L) >=60 mL/min/BSA 11/10/2020 10:57 AM CDT CNFL Comment: ----ADDITIONAL INFORMATION---- Estimated GFR calculated using the 2009 CKD_EPI creatinine equation. eGFR Non-Black/Afric an Malagasy 49(L) >=60 mL/min/BSA 11/10/2020 10:57 AM CDT CNFL Comment: ----ADDITIONAL INFORMATION---- Estimated GFR calculated using the 2009 CKD_EPI creatinine equation. Calcium, Total, P 9.3 8.6 - 10.0 mg/dL 11/10/2020 10:57 AM CDT CNFL Glucose, P 105 70 - 140 mg/dL 11/10/2020 10:57 AM CDT CNFL Blood (Blood, Venous) 11/10/2020 10:19 AM CDT 11/10/2020 10:21 AM CDT Gene Parr M.D. LAB BLOOD ADD-ON Performing Organization Address City/[facility]/[place] [address], [facility] CNFL [place] [address] * Thyroid Function [place] (09/16/2017 11:44 AM CDT) TSH, Sensitive 3.8 0.3 - 4.2 mIU/L 09/16/2017 12:56 PM CDT [facility] Blood 09/16/2017 11:4 4 AM CDT 09/16/2017 12:06 PM CDT Iqra Hurt M.D., M.P.H. LAB BLOOD ADD -ON [facility] 200 [place] [address], [facility] from Last 3 Months or Most Recently Relevant to Health Maintenance Care Teams Traffic Lieutenant Relationship Specialty Start Date End Date Elsewhere, Pcp PCP - General Family Medicine 12/01/20
--- OUTSIDE RECORDS SUMMARY | 2023-12-18 13:55 | XMS_ITS | Encounter Summary ---
Author Organization [facility] Address [address] [place] [address] Care Team Providers Care Neurology Director Name Role Phone Elsewhere, Pcp Primary Care Provider Unavailabl e Encounter Details Date Type Department Care Team (Late st Contact Info) Description 10/23/2023 11:00 AM CDT Ancillary Procedure Department of Orthopedic Surgery Social History Tobacco Use Types Packs/Day Years Used Date Smoking Tobacco: Never Smokeless Tobacco: Never [facility] Utilities Answer Date Recorded In the [...] your living situation today? I have a [facility] place to live 10/18/2023 Sex and Gender Information Value Date Recorded Sex Assigned at Female 01/02/2021 12:49 PM CDT Gender Identity Female 01/02/2021 12:49 PM CDT Sexual Orientation Straight 01/02/2021 12 :49 PM CDT documented as of this encounter Plan of Treatment Upcoming Encounters Date Type Department Care Team (Latest Contact Info) Description 12/24/2023 10:15 AM CDT Clinical Communication Virtual Review in [place], [place] 200 [place] [address] 12/25/2023 10:20 AM CDT Appointment Department of Laboratory Medicine in [address] [phone] Luciano Shepherd M.D. [address] [place] [phone] 12/26/2023 10:00 AM CDT Office Visit Department of Orthopedic Surgery in [place], [place] [address] [place] [phone] Luciano Shepherd M.D. [address] [place] [phone] Cari Núñez R.N. [address] [place] [phone] 12/26/2023 11:00 AM CDT Comprehensive Visit Department of Physical Medicine and Rehabilitation in [place], [place] [address] [place] [phone] Mohit Stephenson M.D. [address] [place] [phone] Rossy Carlson SPT 12/26/2023 1:15 PM CDT Clinical Support Division of Allergic Diseases in [place], [place] [address] [place] [phone] Luciano Shepherd M.D. [address] [place] [phone] 12/26/2023 2:00 PM CDT Comprehensive Visit Division of Allergic Diseases in [place], [place] [address] [place] [phone] Kailey Li P.A.-C., M.S. [address] [place] [phone] 12/26/2023 3:00 PM CDT Comprehensive Visit Preoperative Evaluation Center in [place], [place] [address] [place] [phone] Luciano Shepherd M.D. [address] [place] [phone] 12/27/2023 8:00 AM CDT Comprehensive Visit Department of Physical Medicine and Rehabilitation in [place], [place] [address] [place] [phone] Mohit Stephenson M.D. [address] [place] [phone] Jennifer Garcia O.T., MOT [address] [place] [phone] 12/30/2023 7:55 AM CDT Hospital Encounter [facility] 01 4 AM ADMIT [address] [place] [phone] Luciano Shepherd M.D. [address] [place] [phone] 12/30/2023 7:55 AM CDT - 12/30/2023 10:32 AM CDT Surgery [facility] MAIN OR [address] [place] [address] Luciano Shepherd M.D. [address] [place] [phone] ARTHROPLASTY REPLACEMENT TOTAL HIP with computer-assisted navigation (OrthAlign) Scheduled Procedures Name Priority Associated Diagnoses Date/Ti me ARTHROPLASTY REPLACEMENT TOTAL HIP Other Specified Arthritis Left Hip 12/30/2023 7:55 AM CDT documented as of this encounter Procedures Procedure Name Priority Date/Time Associated Diagnosis Comments ORTHOPEDIC SURGERY IMAGE EXAM Routine 10/23/2023 11:00 AM CDT documented in this encounter Results * DX HIP AND PELVIS LEFT [...] NON RAD IMAGI NG PROCEDURES IIMS NA documented in this encounter Visit Diagnoses Not on filedocumented in this encounter Care Teams Neurology Director Relationship Specialty Start Date End Date Elsewhere, Pcp PCP - General Family Medicine 12/01/20 documented as of this encounter
--- OUTSIDE RECORDS SUMMARY | 2023-12-18 13:55 | XMS_ITS | Encounter Summary ---
Author Organization [facility] Address [address] [place] [address] Care Team Providers Care Spring Coiler Name Role Phone Elsewhere, Pcp Primary Care Provider Unavailabl e Encounter Details Date Type Department Care Team (Late st Contact Info) Description 12/13/2023 Orders Only Department of Orthopedic Surgery in [place], [place] [address] [place] [address] Cari Núñez R.N. [address] [place] [phone] Primary Osteoarthritis Hip Left (Primary Dx); Pain Hip Left Social History Tobacco Use Types Packs/Day Years Used Date Smoking Tobacco: Never Smokeless Tobacco: Never [facility] Utilities Answer Date Recorded In the past 12 months has [facility] [employer], gas, oil, or water [employer] threatened to shut off services in your [...] your living situation today? I have a [facility] place to live 10/18/2023 Sex and Gender Information Value Date Recorded Sex Assigned at Female 01/02/2021 12:49 PM CDT Gender Identity Female 01/02/2021 12:49 PM CDT Sexual Orientation Straight 01/02/2021 12 :49 PM CDT documented as of this encounter Plan of Treatment Upcoming Encounters Date Type Department Care Team (Latest Contact Info) Description 12/24/2023 10:15 AM CDT Clinical Communication Virtual Review in [place], [place] 200 [place] [address] 12/25/2023 10:20 AM CDT Appointment Department of Laboratory Medicine in [address] [phone] Luciano Shepherd M.D. [address] [place] [phone] 12/26/2023 10:00 AM CDT Office Visit Department of Orthopedic Surgery in [place], [place] [address] [place] [phone] Luciano Shepherd M.D. [address] [place] [phone] Cari Núñez R.N. [address] [place] [phone] 12/26/2023 11:00 AM CDT Comprehensive Visit Department of Physical Medicine and Rehabilitation in [place], [place] [address] [place] [phone] Mohit Stephenson M.D. [address] [place] [phone] Rossy Carlson, BELKYS 12/26/2023 1:15 PM CDT Clinical Support Division of Allergic Diseases in [place], [place] [address] [place] [phone] Luciano Shepherd M.D. [address] [place] [phone] 12/26/2023 2:00 PM CDT Comprehensive Visit Division of Allergic Diseases in [place], [place] [address] [place] [phone] Kailey Li P.A.-C., M.S. [address] [place] [phone] 12/26/2023 3:00 PM CDT Comprehensive Visit Preoperative Evaluation Center in [place], [place] [address] [place] [phone] Luciano Shepherd M.D. [address] [place] [phone] 12/27/2023 8:00 AM CDT Comprehensive Visit Department of Physical Medicine and Rehabilitation in [place], [place] [address] [place] [phone] Mohit Stephenson M.D. [address] [place] [phone] Jeninfer Garcia O.T., MOT [address] [place] [phone] 12/30/2023 7:55 AM CDT Hospital Encounter [facility] 01 4 AM ADMIT [address] [place] [address] Luciano Shepherd M.D. [address] [place] [address] 12/30/2023 7:55 AM CDT - 12/30/2023 10:32 AM CDT Surgery [facility] MAIN OR [address] [place] [address] Luciano Shepherd M.D. [address] [place] [address] ARTHROPLASTY REPLACEMENT TOTAL HIP with computer-assisted navigation (OrthAlign) Scheduled Procedures Name Priority Associated Diagnoses Date/Ti me ARTHROPLASTY REPLACEMENT TOTAL HIP Other Specified Arthritis Left Hip 12/30/2023 7:55 AM CDT documented as of this encounter Visit Diagnoses Diagnosis Primary Osteoarthritis Hip Left- Primary Pain Hip Left Other Specified Arthritis Left Hip documented in this encounter Care Teams Spring Coiler Relationship Specialty Start Date End Date Elsewhere, Pcp PCP - General Family Medicine 12/01/20 documented as of this encounter
--- OUTSIDE RECORDS SUMMARY | 2023-12-18 13:55 | XMS_ITS | Encounter Summary ---
Author Organization [facility] Address [address] [place] [address] Care Team Providers Care Environmental Journalist Name Role Phone Elsewhere, Pcp Primary Care Provider Unavailabl e Reason for Visit * Reason Onset Date Comments Document needed from Pre-cert 11/20/2023 Encounter Details Date Type Department Care Team (Latest Contact Info) Description 11/20/2023 Clinical Communication Department of Orthopedic Surgery in [place], [place] [address] [place] [address] Luciano Shepherd M.D. [address] [place] [phone] Document needed from Pre-cert Social History Tobacco Use Types Packs/Day Years Used Date Smoking Tobacco: Never Smokeless Tobacco: Never [facility] Utilities Answer Date Recorded In the past 12 months has [employer], gas, oil, or water [employer] threatened to shut off services in your [...] your living situation today? I have a [facility] place to live 10/18/2023 Sex and Gender Information Value Date Recorded Sex Assigned at Female 01/02/2021 12:49 PM CDT Gender Identity Female 01/02/2021 12:49 PM CDT Sexual Orientation Straight 01/02/2021 12 :49 PM CDT documented as of this encounter Plan of Treatment Upcoming Encounters Date Type Department Care Team (Latest Contact Info) Description 12/24/2023 10:15 AM CDT Clinical Communication Virtual Review in [place], [place] 200 [place] [address] 12/25/2023 10:20 AM CDT Appointment Department of Laboratory Medicine in [address] [phone] Luciano Shepherd M.D. [address] [place] [phone] 12/26/2023 10:00 AM CDT Office Visit Department of Orthopedic Surgery in [place], [place] [address] [place] [phone] Luciano Shepherd M.D. [address] [place] [phone] Cari Núñez R.N. [address] [place] [phone] 12/26/2023 11:00 AM CDT Comprehensive Visit Department of Physical Medicine and Rehabilitation in [place], [place] [address] [place] [phone] Mohit Stephenson M.D. [address] [place] [phone] Rossy Carlson, BELKYS 12/26/2023 1:15 PM CDT Clinical Support Division of Allergic Diseases in [place], [place] [address] [place] [phone] Luciano Shepherd M.D. [address] [place] [phone] 12/26/2023 2:00 PM CDT Comprehensive Visit Division of Allergic Diseases in [place], [place] [address] [place] [phone] Kailey Li, P.A.-C., M.S. [address] [place] [phone] 12/26/2023 3:00 PM CDT Comprehensive Visit Preoperative Evaluation Center in [address] [phone] Luciano Shepherd M.D. [address] [place] [phone] 12/27/2023 8:00 AM CDT Comprehensive Visit Department of Physical Medicine and Rehabilitation in [place], [place] [address] [place] [phone] Mohit Stephenson M.D. [address] [place] [phone] Jennifer Garcia O.T., MOT [address] [place] [address] 12/30/2023 7:55 AM CDT Hospital Encounter [facility] 01 4 AM ADMIT [address] [place] [phone] Luciano Shepherd M.D. [address] [place] [phone] 12/30/2023 7:55 AM CDT - 12/30/2023 10:32 AM CDT Surgery [facility] MAIN OR [address] [place] [address] Luciano Shepherd M.D. [address] [place] [phone] ARTHROPLASTY REPLACEMENT TOTAL HIP with computer-assisted navigation (OrthAlign) Scheduled Procedures Name Priority Associated Diagnoses Date/Ti me ARTHROPLASTY REPLACEMENT TOTAL HIP Other Specified Arthritis Left Hip 12/30/2023 7:55 AM CDT documented as of this encounter Visit Diagnoses Not on filedocumented in this encounter Care Teams Environmental Journalist Relationship Specialty Start Date End Date Elsewhere, Pcp PCP - General Family Medicine 12/01/20 documented as of this encounter
--- OUTSIDE RECORDS SUMMARY | 2023-12-18 13:55 | XMS_ITS ---
Author Organization [facility] Address [address] [place] [address] Care Team Providers Care Transit Operations Supervisor Name Role Phone Unavailable Unavailable Unavailable Surgery Details Not on file Complications Check Surgery Details section. Procedure Estimated Blood Loss Check Surgery Details section. Procedure Findings Check Surgery Details section. Procedure Specimens Taken Check Surgery Details section.
--- OUTSIDE RECORDS SUMMARY | 2023-12-18 13:55 | XMS_ITS | Encounter Summary ---
Author Organization [facility] Address [address] [place] [address] Care Team Providers Care Rabbet Operator Name Role Phone Elsewhere, Pcp Primary Care Provider Unavailabl e Reason for Referral * Outpatient (Routine) - Closed Specialty Diagnoses / Procedures Referred By Blayne joseph Referred To Contact Diagnoses Pain Hip Left Procedures DX Hip And Pelvis Left 2-3 Views Luciano Shepherd M.D. [address] [place] [phone] [facility] Referral ID Status Reason Start Date Expiration Date Visits Re quested Visits Authorized [id number] Closed 09/30/2023 09/29/2024 1 1 Reason for Visit * Reason Onset Date Comments Appointment 09/30/2023 Return left hip Encounter Details Date Type Department Care Team (Latest Contact Info) Description 09/30/2023 Clinical Communication Department of Orthopedic Surgery in [place], [place] [address] [place] [phone] Luciano Shepherd M.D. [address] [place] [phone] Appointment (Return left hip) Social History Tobacco Use Types Packs/Day Years Used Date Smoking Tobacco: Never Smokeless Tobacco: Never Nutrition Answer Date Recorded Nutrition: EVOO Fat Source Unknown 06/09 Nutrition: Servings of Fruits/Vegetables per Day Not on file 06/09/2020 Dental Answer Date Recorded Dental: Regular Dentist Unknown 06/09/19 21 Sex and Gender Information Value Date Recorded Sex Assigned at Female 01/02/2021 12:49 PM CDT Gender Identity Female 01/02/2021 12:49 PM CDT Sexual Orientation Straight 01/02/2021 12 :49 PM CDT documented as of this encounter Plan of Treatment Upcoming Encounters Date Type Department Care Team (Latest Contact Info) Description 12/24/2023 10:15 AM CDT Clinical Communication Virtual Review in [place], [place] 200 [place] [address] 12/25/2023 10:20 AM CDT Appointment Department of Laboratory Medicine in [address] [phone] Luciano Shepherd M.D. [address] [place] [phone] 12/26/2023 10:00 AM CDT Office Visit Department of Orthopedic Surgery in [place], [place] [address] [place] [phone] Luciano Shepherd M.D. [address] [place] [phone] Cari Núñez R.N. [address] [place] [phone] 12/26/2023 11:00 AM CDT Comprehensive Visit Department of Physical Medicine and Rehabilitation in [place], [place] [address] [place] [phone] Mohit Stephenson M.D. [address] [place] [phone] Rossy Carlson SPT 12/26/2023 1:15 PM CDT Clinical Support Division of Allergic Diseases in [place], [place] [address] [place] [phone] Luciano Shepherd M.D. [address] [place] [address] 12/26/2023 2:00 PM CDT Comprehensive Visit Division of Allergic Diseases in [place], [place] [address] [place] [address] Kailey Li P.A.-C., M.S. [address] [place] [address] 12/26/2023 3:00 PM CDT Comprehensive Visit Preoperative Evaluation Center in [place], [place] [address] [place] [address] Luciano Shepherd M.D. [address] [place] [address] 12/27/2023 8:00 AM CDT Comprehensive Visit Department of Physical Medicine and Rehabilitation in [place], [place] [address] [place] [address] Mohit Stephenson M.D. [address] [place] [phone] Jennifer Garcia O.T., [facility] [address] [place] [phone] 12/30/2023 7:55 AM CDT Hospital Encounter [facility] 01 4 AM ADMIT [address] [place] [address] Luciano Shepherd M.D. [address] [place] [phone] 12/30/2023 7:55 AM CDT - 12/30/2023 10:32 AM CDT Surgery [facility] MAIN OR [address] [place] [address] Luciano Shepherd M.D. [address] [place] [address] ARTHROPLASTY REPLACEMENT TOTAL HIP with computer-assisted navigation (OrthAlign) Scheduled Procedures Name Priority Associated Diagnoses Date/Ti me ARTHROPLASTY REPLACEMENT TOTAL HIP Other Specified Arthritis Left Hip 12/30/2023 7:55 AM CDT documented as of this encounter Results * DX Hip And Pelvis Left 2-3 [...] spine and pubic symphysis. Luciano Shepherd M.D. IMG DIAGNOSTIC IMAG ING PROCEDURES documented in this encounter Visit Diagnoses Diagnosis Pain Hip Left- Primary Pain Hip Left Other Specified Arthritis Left Hip documented in this encounter Care Teams Rabbet Operator Relationship Specialty Start Date End Date Elsewhere, Pcp PCP - General Family Medicine 12/01/20 documented as of this encounter
--- OUTSIDE RECORDS SUMMARY | 2023-12-18 13:55 | XMS_ITS | Encounter Summary ---
Author Organization [facility] Address [address] [place] [address] Care Team Providers Care Streetcar Repairer Name Role Phone Elsewhere, Pcp Primary Care Provider Unavailabl e Reason for Referral * Outpatient (Routine) - Authorized Specialty Diagnoses / Procedures Referred By Contac t Referred To Contact Diagnoses Allergy Antibiotic Personal History Procedures Penicillin Skin Test Luciano Shepherd M.D. [address] [place] [phone] [facility] Referral ID Status Reason Start Date Expiration Date V isits Requested Visits Authorized [id number] Authorized 10/24/2023 10/23/2024 1 1 * Outpatient (Routine) - Authorized Specialty Diagnoses / Procedures Referred By Contac t Referred To Contact Allergy and Immunology Diagnoses Allergy Antibiotic Personal History Luciano Shepherd M.D. [address] [place] [phone] [facility] Referral ID Status Reason Start Date Expiration Date V isits Requested Visits Authorized [id number] Authorized 10/24/2023 04/24/2025 1 1 * Outpatient (Routine) - Authorized Specialty Diagnoses / Procedures Referred By Contac t Referred To Contact Anesthesiology Diagnoses Primary Osteoarthritis Hip Left Pain Hip Left Anemia Aplastic (HCC) Preanesthetic Medical Exam Luciano Shepherd M.D. [address] [place] [phone] [facility] Referral ID Status Reason Start Date Expiration Date V isits Requested Visits Authorized [id number] Authorized 10/24/2023 04/24/2025 1 1 * Outpatient (Routine) - Authorized Specialty Diagnoses / Procedures Referred By Blayne t Referred To Contact Orthopedic Surgery Diagnoses Primary Osteoarthritis Hip Left Pain Hip Left Anemia Aplastic (HCC) Preanesthetic Medical Exam Luciano Shepherd M.D. [address] [place] [phone] Luciano Shepherd M.D. [address] [place] [phone] Referral ID Status Reason Start Date Expiration Date V isits Requested Visits Authorized [id number] Authorized 10/24/2023 04/24/2025 1 1 Scheduling Instructions Or she could be put on Stacey Núñez RN calendar on 12/27/2023 Encounter Details Date Type Department Care Team (Late st Contact Info) Description 10/24/2023 Orders Only Department of Orthopedic Surgery in [place], [place] [address] [place] [phone] Cari Núñez R.N. [address] [place] [phone] Allergy Antibiotic Personal History (Primary Dx); Primary Osteoarthritis Hip Left; Pain Hip Left; Anemia Aplastic (HCC); Preanesthetic Medical Exam Social History Tobacco Use Types Packs/Day Years Used Date Smoking Tobacco: Never Smokeless Tobacco: Never [employer] Utilities Answer Date Recorded In the past 12 months has [facility] electric, gas, oil, or water company threatened [...] your living situation today? I have a [facility] place to live 10/18/2023 [...] AM CDT Clinical Communication Virtual Review in [place], [place] 200 [place] [address] 12/25/2023 10:20 AM CDT Appointment Department of Laboratory Medicine in [address] [phone] Luciano Shepherd M.D. [address] [place] [phone] 12/26/2023 10:00 AM CDT Office Visit Department of Orthopedic Surgery in [place], [place] [address] [place] [phone] Luciano Shepherd M.D. [address] [place] [phone] Cari Núñez R.N. [address] [place] [phone] 12/26/2023 11:00 AM CDT Comprehensive Visit Department of Physical Medicine and Rehabilitation in [place], [place] [address] [place] [phone] Mohit Stephenson M.D. [address] [place] [phone] Rossy Carlson, [facility] 12/26/2023 1:15 PM CDT Clinical Support Division of Allergic Diseases in [place], [place] [address] [place] [phone] Luciano Shepherd M.D. [address] [place] [phone] 12/26/2023 2:00 PM CDT Comprehensive Visit Division of Allergic Diseases in [place], [place] [address] [place] [phone] Kailey Li P.A.-Megan., M.S. [address] [place] [phone] 12/26/2023 3:00 PM CDT Comprehensive Visit Preoperative Evaluation Center in [place], [place] [address] [place] [phone] Luciano Shepherd M.D. [address] [place] [phone] 12/27/2023 8:00 AM CDT Comprehensive Visit Department of Physical Medicine and Rehabilitation in [place], [place] [address] [place] [phone] Mohit Stephenson M.D. [address] [place] [phone] Jennifer aGrcia O.T., MOT [address] [place] [phone] 12/30/2023 7:55 AM CDT Hospital Encounter RST RO 01 4 AM ADMIT [address] [place] [phone] Luciano Shepherd M.D. [address] [place] [phone] 12/30/2023 7:55 AM CDT - 12/30/2023 10:32 AM CDT Surgery RST RO MAIN OR [address] [place] [phone] Luciano Shepherd M.D. [address] [place] [phone] ARTHROPLASTY REPLACEMENT TOTAL HIP with computer-assisted navigation (OrthAlign) Scheduled Orders Name Type Priority Associated Diagnoses Orde r Schedule Penicillin Skin Test Procedures Routine Allergy Antibiotic Personal History Expected: 12/25/2023, Expires: 01/23/2025 Scheduled Procedures Name Priority Associated Diagnoses Date/Ti me ARTHROPLASTY REPLACEMENT TOTAL HIP Other Specified Arthritis Left Hip 12/30/2023 7:55 AM CDT Scheduled Referrals Name Type Priority Associated Diagnoses Orde r Schedule Orthopedic Surgery Pre Op (clinic) Outpatient Referral Routine Primary Osteoarthritis Hip Left Pain Hip Left Anemia Aplastic (HCC) Preanesthetic Medical Exam Expected: 12/25/2023, Expires: 01/23/2025 Preoperative Evaluation SANIYA consult (clinic) Outpatient Referral Routine Primary Osteoarthritis Hip Left Pain Hip Left Anemia Aplastic (HCC) Preanesthetic Medical Exam Expected: 12/26/2023, Expires: 01/23/2025 Allergy and Immunology - Penicillin allergy consult (clinic) Outpatient Referral Routine Allergy Antibiotic Personal History Expected: 12/25/2023, Expires: 01/23/2025 documented as of this encounter Visit Diagnoses Diagnosis Allergy Antibiotic Personal History- Primary Primary Osteoarthritis Hip Left Pain Hip Left Anemia Aplastic (HCC) Preanesthetic Medical Exam Other Specified Arthritis Left Hip documented in this encounter Care Teams Streetcar Repairer Relationship Specialty Start Date End Date Elsewhere, Pcp PCP - General Family Medicine 12/01/20 documented as of this encounter
--- OUTSIDE RECORDS SUMMARY | 2023-12-18 13:55 | XMS_ITS | Encounter Summary ---
Author Organization [facility] Address [address] [place] [phone] Care Team Providers Care A And P Mechanic Name Role Phone Elsewhere, Pcp Primary Care Provider Unavailabl e Reason for Visit * Reason Onset Date Comments Phone Contact 10/21/2023 Encounter Details Date Type Department Care Team (Late st Contact Info) Description 10/21/2023 Clinical Communication Department of Orthopedic Surgery in [place], [place] [address] [place] [phone] Luciano Shepherd M.D. [address] [place] [phone] Phone Contact Social History Tobacco Use Types Packs/Day Years Used Date Smoking Tobacco: Never Smokeless Tobacco: Never [facility] Utilities Answer Date Recorded In the past 12 months has [employer], gas, oil, or water [employer] threatened to shut off services in your [...] your living situation today? I have a [facility] place to live 10/18/2023 Sex and Gender Information Value Date Recorded Sex Assigned at Female 01/02/2021 12:49 PM CDT Gender Identity Female 01/02/2021 12:49 PM CDT Sexual Orientation Straight 01/02/2021 12 :49 PM CDT documented as of this encounter Plan of Treatment Upcoming Encounters Date Type Department Care Team (Latest Contact Info) Description 12/24/2023 10:15 AM CDT Clinical Communication Virtual Review in [place], [place] 200 [place] [address] 12/25/2023 10:20 AM CDT Appointment Department of Laboratory Medicine in [address] [phone] Luciano Shepherd M.D. [address] [place] [phone] 12/26/2023 10:00 AM CDT Office Visit Department of Orthopedic Surgery in [address] [phone] Luciano Shepherd M.D. [address] [place] [phone] Cari Núñez R.N. [address] [place] [phone] 12/26/2023 11:00 AM CDT Comprehensive Visit Department of Physical Medicine and Rehabilitation in [place], [place] [address] [place] [phone] Mohit Stephenson M.D. [address] [place] [phone] Rossy Carlson, [facility] 12/26/2023 1:15 PM CDT Clinical Support Division of Allergic Diseases in [place], [place] [address] [place] [phone] Luciano Shepherd M.D. [address] [place] [phone] 12/26/2023 2:00 PM CDT Comprehensive Visit Division of Allergic Diseases in [place], [place] [address] [place] [phone] Kailey Li, P.A.-C., M.S. [address] [place] [phone] 12/26/2023 3:00 PM CDT Comprehensive Visit Preoperative Evaluation Center in [place], [place] [address] [place] [phone] Luciano Shepherd M.D. [address] [place] [phone] 12/27/2023 8:00 AM CDT Comprehensive Visit Department of Physical Medicine and Rehabilitation in [place], [place] [address] [place] [phone] Mohit Stephenson M.D. [address] [place] [phone] Jennifer Garcia O.T., [facility] [address] [place] [phone] 12/30/2023 7:55 AM CDT Hospital Encounter RST ROEI 01 4 AM ADMIT [address] [place] [address] Luciano Shepherd M.D. [address] [place] [phone] 12/30/2023 7:55 AM CDT - 12/30/2023 10:32 AM CDT Surgery [facility]ST [facility] MAIN OR [address] [place] [phone] Luciano Shepherd M.D. [address] [place] [phone] ARTHROPLASTY REPLACEMENT TOTAL HIP with computer-assisted navigation (OrthAlign) Scheduled Procedures Name Priority Associated Diagnoses Date/Ti me ARTHROPLASTY REPLACEMENT TOTAL HIP Other Specified Arthritis Left Hip 12/30/2023 7:55 AM CDT documented as of this encounter Visit Diagnoses Not on filedocumented in this encounter Care Teams A And P Mechanic Relationship Specialty Start Date End Date Elsewhere, Pcp PCP - General Family Medicine 12/01/20 documented as of this encounter
--- OUTSIDE RECORDS SUMMARY | 2023-12-18 13:55 | XMS_ITS | Encounter Summary ---
Author Organization [facility] Address [address] [place] [address] Care Team Providers Care Auto Body Repairman Name Role Phone Elsewhere, Pcp Primary Care Provider Unavailabl e Reason for Referral * Outpatient (Routine) - Closed Specialty Diagnoses / Procedures Referred By Victorianoac t Referred To Contact Diagnoses Pain Hip Left Procedures DX Hip And Pelvis Left 2-3 Views Luciano Shepherd M.D. 200 [place] [phone] [facility] Referral ID Status Reason Start Date Expiration Date Visits Re quested Visits Authorized [id number] Closed 09/30/2023 09/29/2024 1 1 Reason for Visit * Outpatient (Routine) - Closed Specialty Diagnoses / Procedures Referred By Blayne joseph Referred To Contact Diagnoses Pain Hip Left Procedures DX Hip And Pelvis Left 2-3 Views Luciano Shepherd M.D. 200 [place] [phone] [facility] Referral ID Status Reason Start Date Expiration Date Visits Re quested Visits Authorized [id number] Closed 09/30/2023 09/29/2024 1 1 Encounter Details Date Type Department Care Team (Latest Contact Info) Description 10/23/2023 10:26 AM CDT - 10/23/2023 11:59 PM CDT Hospital Encounter Department of Radiology, [facility], in [place], [place] [address] [place] [address] Luciano Shepherd M.D. [address] [place] [phone] Pain Hip Left Discharge Disposition: Home or Self Care Social History Tobacco Use Types Packs/Day Years Used Date Smoking Tobacco: Never Smokeless Tobacco: Never [facility] Utilities Answer Date Recorded In the past 12 months has th e [employer], gas, oil, or water [employer] threatened to shut off services in your [...] your living situation today? I have a [facility] place to live 10/18/2023 Sex and Gender Information Value Date Recorded Sex Assigned at Female 01/02/2021 12:49 PM CDT Gender Identity Female 01/02/2021 12:49 PM CDT Sexual Orientation Straight 01/02/2021 12 :49 PM CDT documented as of this encounter Medications at Time of Discharge Medication Sig Dispensed Refills Start Date End Date acyclovir (ZOVIRAX) 400 mg tablet Take 1 tablet (400 mg total) by mouth as needed (as needed for cold sores). 11/11/2020 alendronate (Fosamax) 35 mg tablet Take 35 mg by mouth daily. 08/27/2023 calcium carbonate/vitamin D3 (CALCIUM 500 + D, D3, ORAL) Take 1 tablet by mouth daily. 03/18/2017 CALCIUM CITRATE-VITAMIN D3 ORAL Take by mouth daily. 01/03/2009 CeleBREX 200 mg capsule Take 200 mg by mouth as needed. 08/14/2023 cholecalciferol (cholecalciferol) 1,000 Unit tablet Take 1 tablet by mouth daily. 10/26/2010 folic acid 400 mcg tablet Take 400 mcg by mouth daily. levothyroxine (SYNTHROID, LEVOTHROID) 88 mcg tablet Take 1 tablet (88 mcg total) by mouth daily. 90 tablet 3 10/08/2017 multivitamin tablet Take 1 tablet by mouth daily. 03/18/2017 simvastatin (Zocor) 10 mg tablet Take 10 mg by mouth daily. 06/08/2023 valACYclovir (Valtrex) 1000 mg tablet Take 1,000 mg by mouth as needed. 01/03/2009 documented as of this encounter Plan of Treatment Upcoming Encounters Date Type Department Care Team (Latest Contact Info) Description 12/24/2023 10:15 AM CDT Clinical Communication Virtual Review in [place], [place] 200 [place] [address] 12/25/2023 10:20 AM CDT Appointment Department of Laboratory Medicine in [address] [phone] Luciano Shepherd M.D. [address] [place] [phone] 12/26/2023 10:00 AM CDT Office Visit Department of Orthopedic Surgery in [address] [phone] Luciano Shepherd M.D. [address] [place] [phone] Cari Núñez R.N. [address] [place] [phone] 12/26/2023 11:00 AM CDT Comprehensive Visit Department of Physical Medicine and Rehabilitation in [place], [place] [address] [place] [address] Mohit Stephenson M.D. [address] [place] [phone] Rossy Carlson SPT 12/26/2023 1:15 PM CDT Clinical Support Division of Allergic Diseases in [place], [place] [address] [place] [phone] Luciano Shepherd M.D. [address] [place] [phone] 12/26/2023 2:00 PM CDT Comprehensive Visit Division of Allergic Diseases in [place], [place] [address] [place] [phone] Kailey Li P.A.-C., M.S. [address] [place] [phone] 12/26/2023 3:00 PM CDT Comprehensive Visit Preoperative Evaluation Center in [place], [place] [address] [place] [phone] Luciano Shepherd M.D. [address] [place] [phone] 12/27/2023 8:00 AM CDT Comprehensive Visit Department of Physical Medicine and Rehabilitation in [place], [place] [address] [place] [address] Mohit Stephenson M.D. [address] [place] [address] Jennifer Garcia O.T., MOT [address] [place] [phone] 12/30/2023 7:55 AM CDT Hospital Encounter RST RO 01 4 AM ADMIT [address] [place] [phone] Luciano Shepherd M.D. [address] [place] [phone] 12/30/2023 7:55 AM CDT - 12/30/2023 10:32 AM CDT Surgery RST RO MAIN OR [address] [place] [address] Luciano Shepherd M.D. [address] [place] [phone] ARTHROPLASTY REPLACEMENT TOTAL HIP with computer-assisted navigation (OrthAlign) Scheduled Procedures Name Priority Associated Diagnoses Date/Ti me ARTHROPLASTY REPLACEMENT TOTAL HIP Other Specified Arthritis Left Hip 12/30/2023 7:55 AM CDT documented as of this encounter Procedures Procedure Name Priority Date/Time Associated Diagnosis Comments DX HIP AND PELVIS LEFT 2-3 VIEWS RAD - Routine (most inpatients and all outpatients) 10/23/2023 10:44 AM CDT Pain Hip Left documented in this encounter Results * DX Hip And [...] thevisualized lumbar spine and pubic symphysis. Luciano [facility] IMAG ING PROCEDURES documented in this encounter Visit Diagnoses Diagnosis Pain Hip Left Other Specified Arthritis Left Hip documented in this encounter Care Teams Auto Body Repairman Relationship Specialty Start Date End Date Elsewhere, Pcp PCP - General Family Medicine 12/01/20 documented as of this encounter
--- OUTSIDE RECORDS SUMMARY | 2023-12-18 13:55 | XMS_ITS | Encounter Summary ---
Author Organization [facility] Address [address] [place] [address] Care Team Providers Care Groundskeeping Yardman Name Role Phone Elsewhere, Pcp Primary Care Provider Unavailabl e Reason for Referral * Specialty Diagnoses / Procedures Referred By Blayne joseph Referred To Contact Mohit Stephenson M.D. [address] [place] [phone] [facility] Referral ID Status Reason Start Date Expiration Date Visits Re quested Visits Authorized Scheduling Instructions Anticipated Surgery Date is surgery on 12/30/23 . If schedulers are having a hard time finding class availability and/or patient needs an staff assistant, call [phone] to assist with scheduling. * Occupational Therapy (Routine) - Authorized Specialty Diagnoses / Procedures Referred By Blayne joseph Referred To Contact Diagnoses Primary Osteoarthritis Hip Left Procedures OT Evaluate and treat Mohit Stephenson M.D. [address] [place] [phone] [facility] Referral ID Status Reason Start Date Expiration Date V isits Requested Visits Authorized [id number] Authorized 10/23/2023 10/22/2024 1 1 * Physical Therapy (Routine) - Authorized Specialty Diagnoses / Procedures Referred By Contac t Referred To Contact Diagnoses Primary Osteoarthritis Hip Left Procedures PT Evaluate and treat Mohit Stephenson M.D. [address] [place] [address] [facility] Referral ID Status Reason Start Date Expiration Date V isits Requested Visits Authorized [id number] Authorized 10/23/2023 10/22/2024 1 1 Reason for Visit * Appointment Request (Routine) - Closed Specialty Diagnoses / Procedures Referred By Blayne joseph Referred To Contact Orthopedic Surgery Diagnoses Pain Hip Left Referral ID Status Reason Start Date Expiration Date Visits Re quested Visits Authorized [id number] Closed 09/27/2023 09/26/2024 1 1 Encounter Details Date Type Department Care Team (Latest Contact Info) Description 10/23/2023 11:45 AM CDT Office Visit Department of Orthopedic Surgery in [place], [place] [address] [place] [address] Luciano Shepherd M.D. [address] [place] [address] Primary Osteoarthritis Hip Left (Primary Dx) Social History Tobacco Use Types Packs/Day Years Used Date Smoking Tobacco: Never Smokeless Tobacco: Never [facility] Utilities Answer Date Recorded In the past 12 months has [employer] [facility] electric, gas, oil, or water company threatened [...] your living situation today? I have a [facility] place to live 10/18/2023 Sex and Gender Information Value Date Recorded Sex Assigned at Female 01/02/2021 12:49 PM CDT Gender Identity Female 01/02/2021 12:49 PM CDT Sexual Orientation Straight 01/02/2021 12 :49 PM CDT documented as of this encounter Progress Notes * Mohit Stephenson M.D. - 10/23/2023 11:45 AM CDT Information For Your Upcoming Surgery Type of Surgery: Total Hip Arthroplasty Date of Surgery: 12/30/23 The following preoperative appointments will be arranged prior to surgery: Pre-operative appointment with Dr. Shepherd's Service - this is a great time to go over any questionsyou may have about surgery. We encourage you to write down your questions and bring them to this appointment. Medical clearance appointment Labs Physical Therapy Discharge Planning Plan to discharge home the day of surgery (early afternoon) Joint Shirt Folding Machine Operator You are required to have the assistance of a caregiver(s) or ???Shirt Folding Machine Operator?? for 24 hours per day for the first 3 days following surgery After 3 days, your Shirt Folding Machine Operator or another caregiver should be available as needed for 3 weeks after surgery Your Shirt Folding Machine Operator should attend as able all of the preoperative appointments including the education class, the medical evaluation, and the visit with Dr. Cevallos and his team prior to surgery Medications to stop prior to surgery If you take fish oil - Stop 7 days prior to surgery If you take vitamins or supplements - Stop 7 days prior to surgery Aspirin, Nonsteroidal anti-inflammatories (Ibuprofen/Advil, Aleve, Celebrex, Meloxicam, Diclofenac,etc), Acetaminophen (Tylenol) can be taken through surgery and only need to be held the MORNING OF SURGERY. ALL opioid pain medications must be discontinued for at least 2 WEEKS prior to surgery These include (but are not limited to): Oxycodone (OxyContin), Hydrocodone ([place]), Morphine, Dilaudid, Percocet, Vicodin, and Tramadol. No opioids will be prescribed before surgery You may be instructed to hold additional medications at your medical clearance appointment. Food/Drinks Prior to Surgery No food after midnight. You may drink water up until your arrival to the hospital on the day of surgery. Time of Surgery Surgery times are not finalized until the day before surgery. You will receive an automated text or phone call around 8:15 PM the night before surgery notifying you on your report time. Physical Therapy We do not require you to formally see physical therapy after surgery. A physical therapist will work with you in the hospital after surgery prior to your discharge. Theywill provide you with exercises you should continue on your own at home. Gait Aid You will be utilizing a walker after surgery. If you have a walker, please bring this to the hospital. Family/caregivers will be responsible for any equipment brought to the hospital while you are in surgery. If you do not have a walker this will be provided to you at the hospital. Dental Work and Procedures Any dental work, including routine dental cleaning, needs to be completed at least 2 WEEKS before surgery Avoid any non-urgent dental work including routine cleanings for 3 months after surgery Do not have a colonoscopy or urologic procedure 2 weeks prior to or 3 months after surgery You will not need to take antibiotics prior to a procedure or dental visit Steroid Injections 3 MONTHS is required after steroid injection into your surgical joint before you can proceed with surgery You may have steroid injections in other joints (e.g. back, hip, other hip) at any time Nicotine ALL nicotine (i.e. cigarettes, cigars, nicotine patches, vape pens and/or chewing tobacco) must be stopped for 6 WEEKS before surgery and cannot be restarted until at least 6 weeks AFTER surgery Immunizations Related to your total joint, immunizations (including flu shots or shingles) are fine any time (before or after as it is a virus, not a bacteria) Post Operative Follow Up Dr. Shepherd's team will follow up with you via the patient portal or phone call at approximately 3 weeks. This will not be a formal scheduled appointment. Unless instructed otherwise, you will have a scheduled in-person evaluation with x-rays at approximately 3 months after surgery. Additional post operative instructions will be provided to you at discharge. * Mohit Stephenson M.D. - 10/23/2023 11:45 AM CDT Orthopedic Follow-Up Visit Diagnosis Left hip osteoarthritis Surgical History None SUBJECTIVE Interval History She has a chronic history of progressive left hip pain, which has now increased to the point of limiting her daily function. Pain is felt in the deep groin on her left hip, in his worse at the end ofthe day were with prolonged activity. She is responded favorably to an intra-articular hip injection which gave her 3- 4 days of good relief. She was also tried a formal course of physical therapy, and has been taking Celebrex to alleviate the pain. She presents today to discuss timing for a total hip arthroplasty. OBJECTIVE Physical Examination Pain with logroll, does have 130?? of hip flexion, full extension. No pain about the knee with passive range of motion or palpation. No pain with palpation over the greater trochanteric bursa. Imaging X-rays of the left hip and pelvis from 10/23/2023 demonstrate advanced degenerative change consistent with osteoarthritis of the left hip. There is also significant osteophytic formation over the superolateral acetabulum. ASSESSMENT / PLAN 63-year-old female with left hip osteoarthritis that has now failed conservative management. As detailed in the HPI, she has been managing this left hip pain for proximally the last 13 years, which has been most significant for her in this last year. The pain is now significant enough that she wants to consider left hip replacement, and understands the natural disease progression of hip arthritis. Based on physical examination and this history I do believe that her hip pain is coming from arthritic change. She would benefit from total hip arthroplasty, and would like to have this procedure performed on 12/30/23. All other questions were answered. Mohit Stephenson M.D. documented in this encounter Plan of Treatment Upcoming Encounters Date Type Department Care Team (Latest Contact Info) Description 12/24/2023 10:15 AM CDT Clinical Communication Virtual Review in [place], [place] [address] [place] [address] 12/25/2023 10:20 AM CDT Appointment Department of Laboratory Medicine in [address] [phone] Luciano Shepherd M.D. [address] [place] [phone] 12/26/2023 10:00 AM CDT Office Visit Department of Orthopedic Surgery in [place], [place] [address] [place] [phone] Luciano Shepherd M.D. [address] [place] [phone] Cari Núñez R.N. [address] [place] [phone] 12/26/2023 11:00 AM CDT Comprehensive Visit Department of Physical Medicine and Rehabilitation in [place], [place] [address] [place] [phone] Mohit Stephenson M.D. [address] [place] [phone] Rossy Carlson, BELKYS 12/26/2023 1:15 PM CDT Clinical Support Division of Allergic Diseases in [place], [place] [address] [place] [phone] Luciano Shepherd M.D. [address] [place] [phone] 12/26/2023 2:00 PM CDT Comprehensive Visit Division of Allergic Diseases in [place], [place] [address] [place] [address] Kailey Li P.A.-Megan., M.S. [address] [place] [phone] 12/26/2023 3:00 PM CDT Comprehensive Visit Preoperative Evaluation Center in [place], [place] [address] [place] [address] Luciano Shepherd M.D. [address] [place] [phone] 12/27/2023 8:00 AM CDT Comprehensive Visit Department of Physical Medicine and Rehabilitation in [place], [place] [address] [place] [address] Mohit Stephenson M.D. [address] [place] [phone] Jennifer Garcia O.T., MOT [address] [place] [phone] 12/30/2023 7:55 AM CDT Hospital Encounter [facility] 01 4 AM ADMIT [address] [place] [phone] Luciano Shepherd M.D. [address] [place] [phone] 12/30/2023 7:55 AM CDT - 12/30/2023 10:32 AM CDT Surgery [facility] MAIN OR [address] [place] [address] Luciano Shepherd M.D. [address] [place] [phone] ARTHROPLASTY REPLACEMENT TOTAL HIP with computer-assisted navigation ([employer]th[employer]) Scheduled Procedures Name Priority Associated Diagnoses Date/Ti me ARTHROPLASTY REPLACEMENT TOTAL HIP Other Specified Arthritis Left Hip 12/30/2023 7:55 AM CDT Scheduled Referrals Name Type Priority Associated Diagnoses Orde r Schedule Patient Education - Total Joint (Hip or Knee) Replacement Education Visit (Clinic) Outpatient Referral Routine Primary Osteoarthritis Hip Left Expected: 10/29/2023, Expires: 01/22/2025 documented as of this encounter Visit Diagnoses Diagnosis Primary Osteoarthritis Hip Left- Primary Other Specified Arthritis Left Hip documented in this encounter Care Teams Groundskeeping Yardman Relationship Specialty Start Date End Date Elsewhere, Pcp PCP - General Family Medicine 12/01/20 documented as of this encounter
--- NOTE | 2023-12-18 14:00 | CRLHL7_ITS ---
For Patients: As a result of the Century Cures Act, medical imaging exams and procedure reports are released immediately into your electronic medical record. You may view this report before your referring provider. If you have questions, please contact your health care provider. DXA BONE MINERAL DENSITY STUDY Current height (in): 65. Weight (lb): 200. Menopause age: 51. Ethnicity: White. 1. Have you had a previous hip or vertebral fracture? No. 2. Have you had any fractures during your adult life which did not result from significant trauma (e.g., auto accident)? No. 3. Did either of your parents have a hip fracture? No. 4. Do you smoke? No. 5. Have you ever taken Glucocorticoids? No. 6. Do you have rheumatoid arthritis? No. 7. Do you have secondary osteoporosis? No. 8. Do you drink 3 or more alcoholic drinks per day? No. 9. Are you being treated for osteoporosis? No. 10. Have you ever taken any of the following medications: Actonel, Evista, Fosamax, Miacalcin, Reclast, Boniva, Forteo, HRT (i.e. estrogen/hormone therapy), Protelos, Prolia, Vitamin D, Calcium, other ??? please specify. ANSWER: Yes, vitamin D, calcium. 11. Do you have any of the following medical conditions: Anorexia or bulimia, asthma or emphysema, end stage renal disease, hyperparathyroidism, any seizure disorders, cancer, inflammatory bowel diseases, hysterectomy, other ??? please specify. ANSWER: No. 12. What was your maximum height (inches)? 67. 13. Do you perform weight bearing exercise regularly? No. 14. Do you regularly consume dairy products? Yes. 15. Do you drink caffeinated beverages? Yes. 16. At what age did your period start? 16. 17. Are you premenopausal? No. 18. How many full term pregnancies have you had? 12. 19. Have you ever missed your period for more than 6 months in a row (not including or menopause)? No. TECHNIQUE: Bone mineral density study was performed using the FL3XX. FINDINGS: The results of the study expressed as bone mineral density (BMD) are as follows: Lumbar spine L1 to L4: BMD: 0.924 g/cm2. T-score: -1.1. Z-score: 0.4. Neck Left: BMD: 0.803 g/cm2. T-score: -0.4. Z-score: 1.0. Right: BMD: 0.680 g/cm2. T-score: -1.5. Z-score: -0.1. Total Left: BMD: 0.922 g/cm2. T-score: -0.2. Z-score: 0.9. Right: BMD: 0.856 g/cm2. T-score: -0.7. Z-score: 0.4. IMPRESSION: Osteopenia. *Comparison exams done prior to 09/2019 were performed on different unit, [employer]. COMPARISON: Compared with scan of 11/12/2016, the bone mineral density has decreased by 1.7 percent at the spine and increased by 12.3 percent at the hip. FRAX 10-year Fracture Risk Major Osteoporotic Fracture: 8.0 percent Hip Fracture: 0.7 percent Reported Risk Factors: [place] () Neck BMD=0.680, BMI=33.3 Slava Pacheco M.D. Diagnostic Radiologist [email or web address] LUIS/Dictated by: Slava Pacheco MD @ 12/18/2023 3:59:00 PM (Electronically Signed)
== END 2023-12-18 13:53 | disposition home or self-care (01) ==
PROVIDERS: PCP Internal Medicine; Visit Provider Registered Nurse
DX: M85.80 Other specified disorders of bone density and structure, unspecified site (principal); M85.89 Other specified disorders of bone density and structure, multiple sites
CPT/HCPCS: 77080

== ENCOUNTER 2024-01-23 08:10 | Outpatient (CLI) | payer BC, SELFPAY ==
--- OUTSIDE RECORDS SUMMARY | 2024-01-24 11:45 | XMS_ITS | Referral Summary ---
Author Organization [facility] Address [address] [place] [address] Care Team Providers Care Steel Rule Die Maker Name Role Phone Elsewhere, Pcp Primary Care Provider Unavailabl e Source Comments Patient records contain information from all sites at [facility]. For routine questions regarding patient records, call [phone] during business hours, M-F 8:00 AM - 5:00 PM Central Time. Record requests for emergency care only can be directed to [phone] at any time.[facility] Encounters Date Type Department Care Team Description 01/21/2024 Clinical Communication Department of Orthopedic Surgery in [place], [place] [address] [place] [address] Luciano Shepherd M.D. 12/31/2023 Documentation Department of Orthopedic Surgery in [place], [place] [address] [place] [address] Lacey Wong M.D. 12/30/2023 7:55 AM CDT - 12/30/2023 10:32 AM CDT Surgery [facility] OR [address] [place] [address] Luciano Shepherd M.D. ARTHROPLASTY REPLACEMENT TOTAL HIP, computer-assisted navigation, [employer]. 12/30/2023 8:20 AM CDT Anesthesia Event [facility] OR [address] [place] [address] DemirciMulugeta M.D. Lu, Angela, M.D. 12/30/2023 5:54 AM CDT - 12/30/2023 3:21 PM CDT Hospital Encounter Outpatient Surgery Unit in [place], [place] [address] [place] [phone] Luciano Shepherd M.D. Decline Functional Status [R53.81] (Primary Dx); Difficulty Walking Orthopedic Hip Cause [R26.2] Discharge Disposition: Home or Self Care 12/26/2023 8:00 AM CDT Internal E-Consult Division of Allergic Diseases in [place], [place] [address] [place] [phone] Kailey Li P.A.-C., M.S. Allergy Drug Personal History (Primary Dx) 12/26/2023 11:00 AM CDT Comprehensive Visit Department of Physical Medicine and Rehabilitation in [place], [place] [address] [place] [phone] Mohit Stephenson M.D. Rowenhorst, Rachel J, SPT Primary Osteoarthritis Hip Left 12/26/2023 2:00 PM CDT Comprehensive Visit Division of Allergic Diseases in [place], [place] [address] [place] [phone] Kailey Li P.A.-C., M.S. Allergy Antibiotic Personal History (Primary Dx) 12/26/2023 1:15 PM CDT Clinical Support Division of Allergic Diseases in [place], [place] [address] [place] [phone] Luciano Shepherd M.D. Miller, Jaylin A R.N. Allergy Antibiotic Personal History 12/26/2023 10:00 AM CDT Office Visit Department of Orthopedic Surgery in [place], [place] [address] [place] [phone] Luciano Shepherd M.D. Kramer, Marcene K R.Kristian. Arthroplasty Total Hip Replacement Status Post Left (Primary Dx); Primary Osteoarthritis Hip Left; Pain Hip Left; Anemia Aplastic (HCC); Preanesthetic Medical Exam; Aftercare Total Hip Arthroplasty 12/26/2023 3:00 PM CDT Comprehensive Visit Preoperative Evaluation Center in [address] [address] Luciano Shepherd M.D. Salvador Leonard APRN, C.N.P., M.S. 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 Primary Osteoarthritis Hip Left Discharge Disposition: Home or Self Care 12/24/2023 Orders Only Division of Allergic Diseases in [address] [address] Adelia Lange R.N. Allergy Drug Personal History (Primary Dx) 12/24/2023 10:15 AM CDT Clinical Communication Virtual Review in [address] [address] 12/13/2023 Orders Only Department of Orthopedic Surgery in [address] [address] Cari Núñez R.N. Primary Osteoarthritis Hip Left (Primary Dx); Pain Hip Left 12/11/2023 3:00 PM CDT Telemedicine Department of Patient Education in [address] [address] Mohit Stephenson M.D. Primary Osteoarthritis Hip Left 11/20/2023 Clinical Communication Department of Orthopedic Surgery in [address] [address] Luciano Shepherd M.D. Document needed from Pre-cert 10/24/2023 Orders Only Department of Orthopedic Surgery in [address] [address] Cari Núñez R.N. Allergy Antibiotic Personal History (Primary Dx); Primary Osteoarthritis Hip Left; Pain Hip Left; Anemia Aplastic (HCC); Preanesthetic Medical Exam from Last 3 Months Allergies Active Allergy Reactions Criticality Noted Date Comments Ceftriaxone Edema, suggestive of allergic reaction, i.e., lip, tongue, or throat swelling High 09/27/2008 Itching/tightening inside throat Penicillin allergy testing is negative on 12/26/23. May use penicillins. Avoid cephalosporins. See allergy note 12/26/23 for cefazolin option with surgery. Medications Medication Sig Dispensed Refills Start Date End Date Status calcium carbonate/vitamin D3 (CALCIUM 500 + D, D3, ORAL) Take 1 tablet by mouth daily. 03/18/2017 Active multivitamin tablet Take 1 tablet by mouth daily. 03/18/2017 Active levothyroxine (SYNTHROID, LEVOTHROID) 88 mcg tablet Take 1 tablet (88 mcg total) by mouth daily. 90 tablet 3 10/08/2017 Active acyclovir (ZOVIRAX) 400 mg tablet Take 1 tablet (400 mg total) by mouth as needed (as needed for cold sores). 11/11/2020 Active CALCIUM CITRATE-VITAMIN D3 ORAL Take by mouth daily. 01/03/2009 Active folic acid 400 mcg tablet Take 400 mcg by mouth daily. Active simvastatin (Zocor) 10 mg tablet Take 10 mg by mouth daily. 06/08/2023 Active acetaminophen (TylenoL) 500 mg tablet Take 2 tablets (1,000 mg total) by mouth every 6 (six) hours. Take for 4 weeks. 120 tablet 12/30/2023 01/29/20 Active aspirin 81 mg chewable tablet Chew 1 tablet (81 mg total) 2 (two) times a day with meals. Recommended to minimize risk of blood clot. Once completed, resume the usual dose of aspirin your primary provider may recommend. 60 tablet 12/30/2023 01/29/20 Active celecoxib (CeleBREX) 200 mg capsule Take 1 capsule (200 mg total) by mouth daily. Take for 4 weeks for inflammation and pain. 30 capsule 12/30/2023 01/29/20 Active traMADoL (Ultram) 50 mg tabletIndications:A cute Pain Take 1 tablet (50 mg total) by mouth every 6 (six) hours as needed for moderate pain or score 4-6 of 10 or severe pain or score 7-10 of 10 for up to 12 doses Indications: Acute Pain. 12 tablet 12/30/2023 Active oxyCODONE (Roxicodone) 5 mg immediate release tabletIndications:A cute Pain Take 1 tablet (5 mg total) by mouth every 4 (four) hours as needed for severe pain or score 7-10 of 10 for up to 18 doses Indication: Acute Pain. 18 tablet 12/30/2023 Active sennosides-docusate sodium (Senna with Docusate Sodium) 8.6-50 mg per tablet Take 1 tablet by mouth 2 (two) times a day. Take 1 tablet by mouth every 12 hours while taking opioids 30 tablet 12/30/2023 Active pantoprazole (Protonix) 40 mg EC tablet Take 1 tablet (40 mg total) by mouth daily before morning meal. Take for 4 weeks. 30 tablet 12/30/2023 01/29/20 24 Active ondansetron ODT (Zofran-ODT) 4 mg disintegrating tablet Dissolve 1 tablet (4 mg total) in the mouth every 6 (six) hours as needed for nausea or vomiting. 12 tablet 12/30/2023 Active cholecalciferol (cholecalciferol) 1,000 Unit tablet Take 1 tablet by mouth daily. 10/26/2010 12/26/19 24 Discontinu ed(Duplica te order) CeleBREX 200 mg capsule Take 200 mg by mouth as needed. 08/14/2023 12/30/19 24 Discontinu ed(Stop Taking at Discharge) alendronate (Fosamax) 35 mg tablet Take 35 mg by mouth daily. 08/27/2023 12/26/19 24 Discontinu ed(Therapy completed) valACYclovir (Valtrex) 1000 mg tablet Take 1,000 mg by mouth as needed. 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 ??September 27, 2008. Presented [...] in counts. 7. ??November 2009, evaluation at [facility] by Dr. Jung, initiated treatment with Cytoxan 100 mg daily. 8. ??January 2010, severe pancytopenia following initial Cytoxan which was held. ??A re-trial of Cytoxan resulted in repeat episode of severe pancytopenia. ??Patient treated with antibiotics for bronchial infection. ??Cytoxan stopped. 9. ??March 02, 2010, re-evaluation at [facility]. 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 ??In calendar year 2010, Mrs. Yuan required transfusion of 6 units of packed red blood cells. 12. ??January 2012, the patient went to [facility] and met with Dr. Joey Villarreal [...] in ?? Return visit in 1 year Pancytopenia 09/27/2008 11/14/2020 Immunizations Name Administration Dates Next Due Influenza Split 01/15/2011 PPSV23 04/15/2011 SARS-COV-2 (COVID-19) - MODERNA(Discontinued) Tdap 04/15/2010,10/13/2002 Social History Tobacco Use Types Packs/Day Years Used Date Smoking Tobacco: Never Smokeless Tobacco: Never Tobacco Cessation:Counseling Given: Not Answered Alcohol Use Standard Drinks/Week Comments Yes 4 (1 standard drink = 0.6 oz pur e alcohol) [facility] Utilities Answer Date Recorded In the past 12 months has [employer], oil, or water company threatened to shut [...] living situation today? I [facility] to live 10/18/2023 Sex and Gender Information Value Date Recorded Sex Assigned at Female 01/02/2021 12:49 PM CDT Gender Identity Female 01/02/2021 12:49 PM CDT Sexual Orientation Straight 01/02/2021 12 :49 PM CDT Last Filed Vital Signs Vital Sign Reading Time Taken Comments Blood Pressure 119/75 12/30/2023 2:16 PM CDT Pulse 54 12/30/2023 12:10 PM CDT Temperature 36.3 ??C (97.3 ??F) 12/30/2023 11:19 AM C DT Respiratory Rate 14 12/30/2023 12:10 PM CDT Oxygen Saturation 97% 12/30/2023 2:16 PM CDT Inhaled Oxygen Concentration - - Weight 93 kg (205 lb 0.4 oz) 12/30/2023 6:33 AM CDT Height 171 cm (5' 7.32) 12/30/2023 6:33 AM CDT Body Mass Index 31.8 12/30/2023 6:33 AM CDT Plan of Treatment Upcoming Encounters Date Type Department Care Team (Late st Contact Info) Description 03/31/2024 11:45 AM HAZARDOUS WASTE MANAGEMENT SPECIALIST Appointment Department of Radiology in [place], [place] [address] [place] [address] Luciano Shepherd M.D. [address] [place] [address] Medical Devices Implanted Type Area Merchandise Marker Device Identifier Shelf Expiration Date Model / Serial / Lot Scrw Trl Acet Ft 6.5x30 - [id number] Implanted:Qty : 1 on 12/30/2023 by Luciano Shepherd M.D. at [facility] Hardware e.g. pins/screws/ rods Left: Hip [employer] [id number] 08/05/2033 [id number] / / [id number] Shll Acet G7 Lhl 52 - [id number] Implanted:Qty : 1 on 12/30/2023 by Luciano Shepherd M.D. at [facility] Hip Implant Left: Hip [employer] 07/05/2033 [id number] / / [id number] Lnr G7 Vv Std Andreas 36 - [id number] Implanted:Qty : 1 on 12/30/2023 by Luciano Shepherd M.D. at [facility] Hip Implant Left: Hip [employer] 08/18/2028 [id number] / / [id number] Hip Stm Actis Hofst Sz3 - [id number] Implanted:Qty : 1 on 12/30/2023 by Luciano Shepherd M.D. at [facility] Hip Implant Left: Hip Depuy Synthes 09/12/2033 [id number] / / [id number] Fem Hd Art -2ofst 36 - [id number] Implanted:Qty : 1 on 12/30/2023 by Luciano Shepherd M.D. at [facility] Hip Implant Left: Hip Depuy Synthes 07/13/2033 [id number] / / [id number] Procedures Procedure Name Priority Date/Time Associated Diagnosis Comments DX HIP LEFT 2-3 VIEWS RAD - Routine (most inpatients and all outpatients) 12/30/2023 10:25 AM CDT ANESTHESIA REGIONAL BLOCK Routine 12/30/2023 8:32 AM CDT ARTHROPLASTY REPLACEMENT TOTAL HIP 12/30/2023 8:02 AM CDT Other Specified Arthritis Left Hip ALI PENICILLIN SKIN TEST Routine 12/26/2023 1:15 PM CDT Allergy Antibiotic Personal History CBC WITH DIFFERENTIAL, B Routine 12/25/2023 10:23 AM CDT Primary Osteoarthritis Hip Left BASIC METABOLIC PANEL, S/P Routine 12/25/2023 10:23 AM CDT Primary Osteoarthritis Hip Left THYROID FUNCTION CASCADE, S Routine 09/16/2017 11:44 AM CDT Anemia Aplastic (HCC) from Last 3 Months or Most Recently Relevant to Health Maintenance Results * DX Hip Left 2-3 Views (12/30/2023 10:25 AM CDT) Anatomical Region Laterality Modality Lower Extremity, Hip, Muscul oskeletal RST LOS, Musculoskeletal ARZ LOS, Muskuloskeletal FLA LOS Left Digit al Radiography Impressions 12/30/2023 11:24 AM CDT Left ADAM. Negative for postoperative purposes. Narrative 12/30/2023 11:24 AM CDT EXAM: ??DX HIP LEFT 2-3 VIEWS Procedure Note Sonam Patel M.D. - 12/30/2023 EXAM: DX HIP LEFT 2-3 VIEWS IMPRESSION: Left ADAM. Negative for postoperative purposes. Luciano Shepherd M.D. IMG DIAGNOSTIC IMAG ING PROCEDURES * Regional Block (12/30/2023 8:32 AM CDT) Narrative Mulugeta Aguiar M.D. - 12/30/2023 8:32 AM CDT Elda Wright M.D. ? 12/30/2023 ??9:09 AM Regional Block Date/Time: 12/30/2023 8:32 AM Performed by: Elda Wright M.D. Authorized by: Mulugeta Aguiar M.D. ?? Location: OR PROCEDURE DETAILS: Block Indication: primary anesthetic ?? Block Type - Neuraxial: spinal Positioning: sitting ?? Approach: midline Level inserted: L3-4 Injection technique: single injection Needle type: pencan Gauge: 24G Length: 10 CSF: yes ??Pain with needle advancement or injection of local anesthetic: no ?? Injected Medications: Injection(s), anesthetic agent(s) and/or steroid; See MAR UNIVERSAL PROTOCOL All relevant documentation and testing were reviewed and available. All required blood products, implants, devices and or special equipment were made available as applicable. Pre-procedure verification was conducted and the correct site was marked if required. A fire risk and smoke assessment were done as applicable. The procedural time-out to verify correct patient, correct side/site, and procedure was conducted prior to performing the procedure and confirmed in a procedural pause. PRE-PROCEDURE DETAILS: ?? Appropriate hand hygiene, gown, cap, mask, protective eyewear, sterile gloves, skin preparation, sterile drape, and strict aseptic technique were utilized as applicable for the procedure.: yes ?? Skin prep: chlorhexidine / alcohol SEDATION / ANESTHESIA Anesthesia method: local infiltration and minimal sedation (anxiolysis) Local infiltrate type: lidocaine Minimal sedation type: see MAR for dose POST-PROCEDURE DETAILS: Procedure completed successfully: successful procedure Notable Events: none ATTESTATION STATEMENT A resident or fellow participated in the procedure, and the net developer consultant was present for the entire procedure. Mulugeta Aguiar M.D. PROCEDURE/MINOR SURG ICAL ORDERABLES * Penicillin Skin Test (12/26/2023 1:15 PM CDT) Narrative [facility]OD[facility] - 12/26/2023 1:15 PM CDT Katie Borjas R.N. ? 12/26/2023 ??2:10 PM Penicillin and other antibiotic skin test ?? Flowsheet Row Clinical Support from 12/26/2023 in Division of Allergic Diseases in [place], [place] Penicillin and other antibiotics (Prick) ?? Histamine 6mg/ml prick 6x6 Wheal, 20x20 Flare Diluent without preservative (Prick) 0 Benzylpencilloyl (PrePen) (Major determinant) 0 New Mix Penicillin G (Prick) 0 Alkaline Hydrolysis (Prick) (Minor determinant) 0 Ampicillin ordered? Yes Ampicillin (Prick) 0 Cefazolin ordered? Yes Cefazolin (Prick) 0 ??[330 mg/ml Prick] Penicillin and other antibiotics (ID) ?? Diluent without preservative (ID) 0 Benzylpencilloyl (PrePen) (ID) (Major determinant) 0 New Mix Penicillin G (ID) 0 Alkaline Hydrolysis (ID) (Minor determinant) 0 Ampicillin (ID) 0 Cefazolin (ID) 0 ??[3.3 mg/ml ID] Cefazolin (ID) 0 ??[33 mg/ml ID] Luciano Shepherd M.D. PROCEDURE/MINOR MARK GICAL ORDERABLES MMODAL NA * (ABNORMAL) CBC with Differential, Blood (12/25/2023 10:23 AM CDT) [facility] Hemoglobin 12.6 11.6 - 15.0 g/dL 12/25/2023 10:39 AM CDT CNFL Hematocrit 36.4 35.5 - 44.9 % 12/25/2023 10:39 AM CDT CNFL Erythrocytes 3.65(L) 3.92 - 5.13 x10(12)/L 12/25/2023 10:39 AM CDT CNFL MCV 99.7(H) 78.2 - 97.9 fL 12/25/2023 10:39 AM CDT CNFL RBC Distrib Width 12.7 12.2 - 16.1 % 12/25/2023 10:39 AM CDT CNFL Platelet Count 165 157 - 371 x10(9)/L 12/25/2023 10:39 AM CDT CNFL Leukocytes 3.8 3.4 - 9.6 x10(9)/L 12/25/2023 10:39 AM CDT CNFL Neutrophils 2.00 1.56 - 6.45 x10(9)/L 12/25/2023 10:39 AM CDT CNFL Lymphocytes 1.34 0.95 - 3.07 x10(9)/L 12/25/2023 10:39 AM CDT CNFL Monocytes 0.38 0.26 - 0.81 x10(9)/L 12/25/2023 10:39 AM CDT CNFL Eosinophils 0.07 0.03 - 0.48 x10(9)/L 12/25/2023 10:39 AM CDT CNFL Basophils <0.04 0.01 - 0.08 x10(9)/L 12/25/2023 10:39 AM CDT CNFL Blood (Blood, Venous) 12/25/2023 10:23 AM CDT 12/25/2023 10:27 AM CDT Luciano Shepherd M.D. LAB BLOOD ADD-ON Performing Organization Address City/State/[facility] Co de Phone Number [facility] [address] [place] [address], [facility] CNFL [place] [address] * (ABNORMAL) Basic Metabolic Panel (12/25/2023 10:23 AM CDT) Potassium, P 5.0 3.6 - 5.2 mmol/L 12/25/2023 10:45 AM CDT CNFL Sodium, P 138 135 - 145 mmol/L 12/25/2023 10:45 AM CDT CNFL Chloride, P 106 98 - 107 mmol/L 12/25/2023 10:45 AM CDT CNFL Bicarbonate, P 24 22 - 29 mmol/L 12/25/2023 10:45 AM CDT CNFL Anion Gap, P 8 7 - 15 12/25/2023 10:45 AM CDT CNFL BUN (Blood Urea Nitrogen), P 24(H) 6 - 21 mg/dL 12/25/2023 10:45 AM CDT CNFL Creatinine 1.09(H) 0.59 - 1.04 mg/dL 12/25/2023 10:45 AM CDT CNFL Estimated GFR (eGFR) 57(L) >=60 mL/min/BSA 12/25/2023 10:45 AM CDT CNFL Comment: Estimated GFR calculated using the 2020 CKD_EPI creatinine equation. Calcium, Total, P 9.6 8.8 - 10.2 mg/dL 12/25/2023 10:45 AM CDT CNFL Glucose, P 110 70 - 140 mg/dL 12/25/2023 10:45 AM CDT CNFL Blood (Blood, Venous) 12/25/2023 10:23 AM CDT 12/25/2023 10:27 AM CDT Luciano Shepherd M.D. [place] [address], [facility] CNFL [place] [address] * Thyroid Function [place] (09/16/2017 11:44 AM CDT) TSH, Sensitive 3.8 0.3 - 4.2 mIU/L 09/16/2017 12:56 PM CDT [facility] Blood 09/16/2017 11:4 4 AM CDT 09/16/2017 12:06 PM CDT Iqra Hurt M.D., M.P.H. LAB BLOOD ADD -ON [facility] [address] [place] [address], [facility] from Last 3 Months or Most Recently Relevant to Health Maintenance Advance Directives For more information, please contact: [phone] * Full Code (Latest Code Status on File) Date Activated Date Inactivated Comments 12/30/2023 11:28 AM 12/30/2023 5:27 PM Question Answer Comments Full Code: Not Discussed Due to: Patient not available * Full Code Date Activated Date Inactivated Comments 12/30/2023 6:04 AM 12/30/2023 11:28 AM Question Answer Comments Full Code: Not Discussed Due to: Patient not available Care Teams Steel Rule Die Maker Relationship Specialty Start Date End Date Elsewhere, Pcp PCP - General Family Medicine 12/01/20
--- OUTSIDE RECORDS SUMMARY | 2024-01-24 11:45 | XMS_ITS | Encounter Summary ---
Author Organization [facility] Address [address] [place] [address] Care Team Providers Care Hydrography Teacher Name Role Phone Elsewhere, Pcp Primary Care Provider Unavailabl e Encounter Details Date Type Department Care Team (Late st Contact Info) Description 01/21/2024 Clinical Communication Department of Orthopedic Surgery in [place], [place] [address] [place] [phone] Luciano Shepherd M.D. [address] [place] [phone] Social History Tobacco Use Types Packs/Day Years Used Date Smoking Tobacco: Never Smokeless Tobacco: Never Alcohol Use Standard Drinks/Week Comments Yes 4 (1 standard drink = 0.6 oz pur e alcohol) [facility] Utilities Answer Date Recorded In the past 12 months has [employer], gas, oil, or water [employer] threatened to shut off services in your [...] your living situation today? I have a [facility] place to live 10/18/2023 Sex and Gender Information Value Date Recorded Sex Assigned at Female 01/02/2021 12:49 PM CDT Gender Identity Female 01/02/2021 12:49 PM CDT Sexual Orientation Straight 01/02/2021 12 :49 PM CDT documented as of this encounter Miscellaneous Notes * Telephone Encounter - Cari Núñez RKayla - 01/21/2024 2:51 PM CDT ----- Message from Nurse Alcala sent at 12/26/2023 11:18 AM CDT ----- Regardin week f/u Left ADAM, 12/30/2023 documented in this encounter Plan of Treatment Upcoming Encounters Date Type Department Care Team (Late st Contact Info) Description 03/31/2024 11:45 AM SPECIAL PROJECTS MANAGER Appointment Department of Radiology in [place], [place] [address] [place] [address] Luciano Shepherd M.D. [address] [place] [address] documented as of this encounter Visit Diagnoses Not on filedocumented in this encounter Care Teams Hydrography Teacher Relationship Specialty Start Date End Date Elsewhere, Pcp PCP - General Family Medicine 12/01/20 documented as of this encounter
--- OUTSIDE RECORDS SUMMARY | 2024-01-24 11:45 | XMS_ITS | Encounter Summary ---
Author Organization [facility] Address [address] [place] [id number] Care Team Providers Care Cardiopulmonary Technician And Eeg Tech Name Role Phone Elsewhere, Pcp Primary Care Provider Unavailabl e Reason for Visit * Auth/Cert (Routine) Specialty Diagnoses / Procedures Referred By Blayne joseph Referred To Contact Diagnoses Other Specified Arthritis Left Hip Other Specified Arthritis Left Hip [M13.852] Procedures NC ARTHRO ACETAB&FEM PROSTH (ADAM) NC CASN PROC MUSSKL NO IMG ARTHROPLASTY REPLACEMENT TOTAL HIP with computer-assisted navigation (OrthAlign) Luciano Shepherd M.D. [address] [place] [phone] Referral ID Status Reason Start Date Expiration Date Visits Re quested Visits Authorized [id number] 1 1 Encounter Details Date Type Department Care Team (Late st Contact Info) Description 12/30/2023 7:55 AM CDT - 12/30/2023 10:32 AM CDT Surgery [facility] [address] [place] [phone] Luciano Shepherd M.D. [address] [place] [phone] ARTHROPLASTY REPLACEMENT TOTAL HIP, computer-assisted navigation, OrthAlign. Social History Tobacco Use Types Packs/Day Years Used Date Smoking Tobacco: Never Smokeless Tobacco: Never Alcohol Use Standard Drinks/Week Comments Yes 4 (1 standard drink = 0.6 oz pur e alcohol) [facility] Utilities Answer Date Recorded In the past 12 months has e electric, gas, oil, or water company [...] your living situation today? I have a [facility] place to live 10/18/2023 Sex and Gender Information Value Date Recorded Sex Assigned at Female 01/02/2021 12:49 PM CDT Gender Identity Female 01/02/2021 12:49 PM CDT Sexual Orientation Straight 01/02/2021 12 :49 PM CDT documented as of this encounter Last Filed Vital Signs Vital Sign Reading Time Taken Comments Blood Pressure 99/68 12/30/2023 10:30 AM CDT Pulse 61 12/30/2023 10:30 AM CDT Temperature 36.5 ??C (97.7 ??F) 12/30/2023 10:25 AM C DT Respiratory Rate 13 12/30/2023 10:30 AM CDT Oxygen Saturation 97% 12/30/2023 10:30 AM CDT Inhaled Oxygen Concentration - - Weight 93 kg (205 lb 0.4 oz) 12/30/2023 6:33 AM CDT Height 171 cm (5' 7.32) 12/30/2023 6:33 AM CDT Body Mass Index 31.8 12/30/2023 6:33 AM CDT documented in this encounter Medications at Time of Discharge Medication Sig Dispensed Refills Start Date End Date acetaminophen (TylenoL) 500 mg tablet Take 2 tablets (1,000 mg total) by mouth every 6 (six) hours. Take for 4 weeks. 120 tablet 12/30/2023 01/29/2024 acyclovir (ZOVIRAX) 400 mg tablet Take 1 tablet (400 mg total) by mouth as needed (as needed for cold sores). 11/11/2020 aspirin 81 mg chewable tablet Chew 1 tablet (81 mg total) 2 (two) times a day with meals. Recommended to minimize risk of blood clot. Once completed, resume the usual dose of aspirin your primary provider may recommend. 60 tablet 12/30/2023 01/29/2024 calcium carbonate/vitamin D3 (CALCIUM 500 + D, D3, ORAL) Take 1 tablet by mouth daily. 03/18/2017 CALCIUM CITRATE-VITAMIN D3 ORAL Take by mouth daily. 01/03/2009 celecoxib (CeleBREX) 200 mg capsule Take 1 capsule (200 mg total) by mouth daily. Take for 4 weeks for inflammation and pain. 30 capsule 12/30/2023 01/29/2024 folic acid 400 mcg tablet Take 400 mcg by mouth daily. levothyroxine (SYNTHROID, LEVOTHROID) 88 mcg tablet Take 1 tablet (88 mcg total) by mouth daily. 90 tablet 3 10/08/2017 multivitamin tablet Take 1 tablet by mouth daily. 03/18/2017 ondansetron ODT (Zofran-ODT) 4 mg disintegrating tablet Dissolve 1 tablet (4 mg total) in the mouth every 6 (six) hours as needed for nausea or vomiting. 12 tablet 12/30/2023 oxyCODONE (Roxicodone) 5 mg immediate release tabletIndications:Acut e Pain Take 1 tablet (5 mg total) by mouth every 4 (four) hours as needed for severe pain or score 7-10 of 10 for up to 18 doses Indication: Acute Pain. 18 tablet 12/30/2023 pantoprazole (Protonix) 40 mg EC tablet Take 1 tablet (40 mg total) by mouth daily before morning meal. Take for 4 weeks. 30 tablet 12/30/2023 01/29/2024 sennosides-docusate sodium (Senna with Docusate Sodium) 8.6-50 mg per tablet Take 1 tablet by mouth 2 (two) times a day. Take 1 tablet by mouth every 12 hours while taking opioids 30 tablet 12/30/2023 simvastatin (Zocor) 10 mg tablet Take 10 mg by mouth daily. 06/08/2023 traMADoL (Ultram) 50 mg tabletIndications:Acut e Pain Take 1 tablet (50 mg total) by mouth every 6 (six) hours as needed for moderate pain or score 4-6 of 10 or severe pain or score 7-10 of 10 for up to 12 doses Indications: Acute Pain. 12 tablet 12/30/2023 documented as of this encounter Consult Notes * Js Medel P.T., D.P.T. - 12/30/2023 3:07 PM CDT Physical Therapy Inpatient Evaluation/Treatment SUBJECTIVE Patient's Name: Lisette Yuan Referring/Attending Provider: Luciano Shepherd M.D. 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 TUBAL LIGATION History of Present Illness: Status post left total hip arthroplasty due to osteoarthritis Prior Function/Occupational Profile Lives With: Alone ADL Assistance: Independent IADL/Homemaking Assistance: Independent Driving: Independent Prior Mobility/Functional Transfers Level of [place]: Independent Home Equipment Gait Devices Owned: Front-wheeled walker, Cane Bathroom Equipment: Toilet safety frame Home Living Type of Home: House Home Layout: Multi-level Home Access: Stairs to enter without rails, Stairs to alternate level with rails Entrance Stairs: Number of Steps: 4 platform type steps Alternate Level Stairs: Rails: Left Alternate Level Stairs: Number of Steps: 14 Bathroom Shower/Tub: Walk-in shower Bathroom Toilet: Comfort height Family/Caregiver Present: Yes Patient/Caregiver Goals: Patient plans to discharge to family's home then to her home. Patient Comments: Patient reports 1/10 left hip pain. Precautions Weight Bearing Status: Weight-bearing as tolerated left lower extremity Fall Risk (65 and older) Fall in the last 12 months: No Are you fearful of falling?: No OBJECTIVE Range of Motion: left hip limited by stiffness Strength: fires gluteals, quadriceps, hamstrings, ankle groups 5/5 Sensation: sensation intact to light touch in involved extremity OTHER: calves soft and non-tender. Vitals stable per chart review. Cognition Orientation: Oriented X4 Bed Mobility - Supine to Sit # of Assistants: 1 Level of Assistance: Supervision/Set-up Cuing: Verbal Comments: Cuing for technique only Sit to Stand Transfers # of Assistants: 1 Transfer Surface: Bed Transfer Equipment: Front wheeled walker Level of Assistance: Supervision/set-up Comments: Patient demonstrated proper hand placements. Stand to Sit Transfers # of Assistants: 1 Transfer Surface: Bed Transfer Equipment: Front wheeled walker Level of Assistance: Supervision/set-up Comments: Patient demonstrated proper hand placements. Car Transfers Comments: Reviewed car transfer technique and verbalized understanding. Gait Assessment/Training Distance (m): 40 m Surface: Even Device: Front-wheeled walker # of Assistants: 1 Level of Assistance: Contact guard assistance, Supervision/Set-up Assessment of Gait: Patient demonstrated a step to that a step through gait pattern using a front wheeled walker with mild instability due to left lower extremity incoordination. No gross instabilitynoted. Stairs/Curb # Stairs: 6 Curb Assessment: Yes Rails: 1, None Device: No device, Single point cane # of Assistants: 1 Level of Assistance: Minimal assistance Stairs Comments: Patient was instructed how to ascending descend stairs using a rail and a cane andalso how to ascending descend a platform step using a front wheeled walker going forward. Exercise - Protocol Total Joints Exercise: Total hip - posterior Total Joints Exercise Comments: Patient instructed in quad sets, ankle pumps, seated knee active range of motion, four-week exercises, total hip arthroplasty precautions, and weight-bearing as tolerated restriction. Use of ice packs with precautions reviewed. Patient's nurse was contacted and patient's status was discussed Patient was left in bed at end of session with call light in reach, all needs met and questions answered. Outcome Measures [facility] Inpatient Short Form: [facility] Basic Mobility (V.2) How much help from another person do you currently need???If the patient hasn't done an activity recently, how much help from another person do you think he/she would needif he/she tried? 1. Turning from your back to your side while in a flat bed without using bedrails?: None 2. Moving from lying on your back to sitting on the side of a flat bed without using bedrails?: None 3. Moving to and from a bed to a chair (including a wheelchair)?: None 4. Standing up from a chair using your arms (e.g., wheelchair, or bedside chair)?: None 5. To walk in hospital room?: A Little 6. Climbing 3-5 steps with a railing?: A Little -[facility] Basic Mobility (V.2) Raw Score: 22 [facility] Basic Mobility (V.2) Standardized Score: 47.4 Interpretation: Clinicians answer the [facility] Inpatient Short Form based on observed patient activity and/or clinical judgement (ie. patient can be scored without physically performing each activity) Based on scoring guidelines using the raw score value: Those going to home had an average score at or above 18 Those going to facility had an average score at or below 17 Assessment Discharge Therapy Needs - PT: No further skilled therapy Skilled therapy can include physical therapy provided by home health, outpatient clinic, or a post-acute facility. The location of these services is determined by the patient's care team in partnership with patient/family. Level of Care Needed - PT: Physical assistance needed, Assistance with stairs Barriers to Discharge Home: None Clinical Impression of today's session: Currently, the patient presents with impairments including hip range of motion, surgical limb weakness, postop pain, postop swelling, and postop restrictions resulting in the following functional deficits: activities of daily living, bed mobility, transfers, gait and stairs. Patient was independentwith bed mobility. Patient required supervision to contact guard assist for transfers, gait training using a front wheeled walker, and stair training. Patient was instructed how to wean from a front wheeled walker to a single-point cane. Patient was instructed in home exercise program and given written materials. Patient has met her acute physical therapy goals. Patient discharged. Rehab potential: Ms. Yuan has Excellent potential to achieve established physical therapy goals within the time frame outlined below. Progress: Progressing toward goals Tiered PT Evaluation Codes: Comorbid Conditions: Arthritis, Cancer, Renal disease Personal Factors: Needs assistive device Examination elements: 4+ Clinical Presentation: Stable Clinical Decision Making: Low complexity clinical decision making Functional Goals: PT Inpatient Goals PT Goal #1: Supine to/from sit without use of bed mechanics minimal assist x 1. PT Goal #1 Status: Achieved PT Goal #2: Sit-to/from-stand from multiple surface heights using appropriate gait aid with supervision to allow safe mobility at home. PT Goal #2 Status: Achieved PT Goal #3: Gait using appropriate gait aid 35 m with supervision in order to safely move within their home. PT Goal #3 Status: Achieved PT Goal #4: Patient will ascend and descend 3 steps using a rail and appropriate gait aid and a platform step using a front wheeled walker minimal assist x1 in order to enter their home. PT Goal #4 Status: Achieved Plan Patient agrees with the plan of care and goals. Treatment Plan: Plan: Discontinue PT PT Frequency: One-time visit PT Inpatient Duration : Until goals are met or hospital discharge Requires Inpatient Follow-Up: No PT Plan Comments: Total hip arthroplasty precautions and home exercise program, bed mobility, transfers, gait training using appropriate gait aid, stair training. Treatment interventions may include: Treatment/Interventions: Therapeutic exercise, Therapeutic functional activity, Gait training Billing: Time Spent with Patient Evaluations PT Eval - Low Complexity: 5 min Therapeutic Interventions Gait Training (min): 10 min Therapeutic Activity (min): 6 min Time Tracking Total Timed Units (min): 16 min Total Treatment Time (min): 21 min Js Medel P.T., D.P.T. * Bernadette Mae O.T. - 12/30/2023 2:28 PM CDT Occupational Therapy [facility] Inpatient Evaluation/Treatment By co-signing this note, the provider certifies the therapy being provided to this patient is reasonable and necessary for the diagnosis or treatment of this patient. SUBJECTIVE Patient's Name: Lisette Yuan Referring/Attending Provider: Luciano Shepherd M.D. Medical Diagnosis: Other Specified Arthritis Left Hip [M13.852] Reason for Referral: Occupational Therapy Evaluation and Treatment Past Medical / Surgical History: Lisette Yuan has a past medical history of Anemia (2008), Apnea Sleep Obstructive, Arthritis, Blood Transfusion No Diagnosis, Hyperlipidemia, Hypothyroidism, Malignant Primary Neoplasm (Unknown Site) Unspecified (HCC) (2008), Osteopenia, Other Injury Of Unspecified Body Region (1966), and Sleep Ap lisbeth. Lisette Yuan has a past surgical history that includes Colonoscopy (N/A, 10/27/2010); Tubal ligation; Bone marrow biopsy (2013); and Bunionectomy (2021). History of Present Illness: Lisette Yuan is a 63 y.o. female who was admitted to [facility] in [place] on 12/30/2023 for Left - ARTHROPLASTY REPLACEMENT TOTAL HIP, computer-assisted navigation, OrthAlign.. Weight Bearing Status: Weight bearing as tolerated:Left lower extremity Precautions/Restrictions: total hip precautions and fall Falls screen: Fall in the last 12 months: No Are you fearful of falling: No Pain Assessment: Pain Ratin/10 on a 0-10 point scale, Location: Surgical left hip Subjective Comments: Patient resting in bed upon OT arrival to room. Patient agreeable to participate in OT evaluation and treatment. Patient's sister and daughter also present. Communication: The patient's status was discussed and the following coordination of care occurred with the: RN PT Family/Caregiver Home Living and Equipment: Lives with: Alone Receives help from: Family. Patient plans to stay at her sister's house with initial 2 days then 1 of her adult children will be coming home to stay with her for 2 weeks. She has another daughter that lives nearby and can assist as needed Type of Home: House Home Layout: Two Level + basement Able to live on main level with bedroom/bathroom Bedroom upstairs Full Bath main level Laundry in basement Home Access: Stairs to enter: Number of steps: 4 platform steps through back entrance, Railing: left handrail Stairs to alternate level: Number of steps: Full flight of steps to 2nd level where bedroom is located, Railing: unilateral handrail Bathroom Accessibility: Shower: Walk-in Shower Level: Main Floor Bathroom Equipment: None Patient reports small phone encarnacion size shower that will not accommodate a chair Toilet: Comfort Toilet Level: Main Floor Toilet Equipment: Toilet safety frame Assistive Device Owned: Front wheeled walker, Single point cane Adaptive Equipment Owned: Lithographic Platemaker, Sock Aid, Long Handled Shoe Horn, Dressing Stick Other DME Owned: Adjustable bed (2nd floor) , Regular flat bed (main) Home Living Comments: Patient is planning to spend 2 days at her sister's house which has 1 step inthrough garage, bedroom/ bathroom on main floor with walk-in shower and shower seat and comfort height toilet. 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 OBJECTIVE Vital Signs Vitals monitored throughout session; within normal ranges. Patient denies dizziness, lightheadedness, shortness of breath, chest pain, and diaphoresis during this session. No nausea Physical/Cognitive Exam: Strength: Left lower extremity impaired Range of Motion: Left lower extremity impaired Balance: Static Sitting: Good (maintains balance without support) Dynamic Sitting: Good (maintains balance without support) Static Standing: Good (maintains balance without support) Dynamic Standing: Good (maintains balance without support) Cognition: No observable concerns with cognition at the time of evaluation. Outcome Measures: AM-[facility] Inpatient Short Form: Putting on and taking off regular lower body clothing?: A Little Putting on and taking off regular upper body clothing?: None Taking care of personal grooming such as brushing teeth?: None Bathing (including washing, rinsing, drying)?: A Little Toileting, which includes using toilet, bedpan, or urinal?: None Eating meals?: None Daily Activities Raw Score (max 24): 22 Daily Activities Standardized Score: 47.1 Interpretation: Based on scoring guidelines using the raw score value: Those going to home had an average score at or above 18 Those going to facility had an average score at or below 17 Clinicians answer the [facility] Inpatient Short Form based on observed patient activity and/or clinical judgment (ie. patient can be scored without physically performing each activity) Treatment consisted of: Bed Mobility: -Patient instructed on compensatory strategies to improve transfer in/out of bed. Recommendations provided with adaptations for correct sequencing, technique, and modification tools including leg a r collections rep as needed and/or bed adjustments. Completes at a supervision level. Functional transfer: -Provided instruction and cues during functional sit to/from stand transfers, including body alignment to surface, appropriate hand placement, and optimal placement of surgical extremity to optimize safety and technique. Verbal cues given to keep one upper extremity on the assistive device and one on the transfer surface for stability. Cued patient to kick surgical leg forward prior to sit<>stand and stand<>sit. Verbal education for current weight bearing status. Patient completes functional transfers at a modified independence level with front wheeled walker and gait belt. Dressing: - Upper body dressing: Seated, edge of bed, independent. Educated on use of gait belt at home. - Lower body dressing: Seated, edge of bed, at a modified independence level , front wheeled walkerand gait belt. - Patient instructed on lower body dressing compensatory strategies and aids to assist with don/doff process. Emphasized donning clothing over surgical extremity first and doffing over it last. Guided practice performed utilizing the following equipment fine chemicals operator, sock aid, long handled shoe horn, dressing stick. Toileting: - Therapist provided verbal cues for technique , sequencing , accurate positioning of proper leg/hand placement and modifications for toileting skills with hygiene care and clothing management to adhere to precautions. Education and recommendations provided on toilet seat modifications. Patient completes toilet transfer to/from a standard toilet height at a modified independence level , with front wheeled walker and gait belt. Functional Ambulation: Patient demonstrated ability to safely ambulate with walker/gait belt and contact guard assist x1 to and from bathroom, demonstrating good balance. Education provided: Hip Precautions: -Educated patient/caregiver regarding hip precautions on their surgical extremity including avoidance of excessive hip flexion, internal rotation, and twisting at the hips. Patient was educated on total hip precautions and how to apply those precautions to activities of daily living and functional transfers. Hip Arthroplasty Precautions: - When bending forward, knees should be spread at least shoulder-width apart. - Movement based on pain/discomfort. Example: Keep your knees apart and reach between them to put on socks and shoes. - No hip internal rotation or adduction motions/positions. - Avoid extremes of motion in all planes. Example: hyperflexing and twisting of your torso. DME: -Educated patient/caregiver regarding recommended use of bathroom safety equipment including showerchair or tub transfer bench, grab bars, anti-slip strips, hand-held showerhead, long-handled sponge, and raised toilet seat to optimize safety during bathing and toileting. Home Safety: -Educated patient/caregiver regarding home safety and fall prevention strategies including use of recommended assistive device, wearing non-slip footwear, ensuring clear pathways, removing throw rugs, and good lighting throughout the home. Bathing: -Educated patient/caregiver in bathing strategies including seated position with use of hand-held showerhead and long-handled sponge to optimize safety. To prevent infection, provided education for incisional care including use of antibacterial soap and clean wash cloth to dab NOT scrub incision, allow water to run over incision, and to avoid submerging or soaking the incision. Dressing: -Patient instructed on lower body dressing compensatory strategies and aids to assist with don/doffprocess. Emphasized donning clothing over surgical extremity first and doffing over it last. Guidedpractice performed with Lithographic Platemaker, Sock Aid, Long Handled Shoe Horn, Dressing Stick. Toileting -Patient instructed on accurate positioning and modifications for toileting skills with hygiene care and clothing management to adhere to precautions. Education and recommendations provided on toiletseat modifications. Bed Mobility: -Patient instructed on compensatory strategies to improve transfer in/out of bed. Recommendations provided with adaptations for correct sequencing, technique, and modification tools including leg a r collections rep and/or bed adjustments. Functional Transfers: -Provided instruction and cues during functional sit to/from stand transfers, including body alignment to surface, appropriate hand placement, and optimal placement of surgical extremity to optimize safety and technique. Handouts provided today: Protecting your Hip Arthroplasty After Surgery [id number] Bathroom Safety Equip. [id number] Patient Disposition at the end of Treatment: Patient was left in bed at end of session with call light in reach, all needs met and questions answered. Assessment Discharge Therapy Needs - OT: No Further Skilled Therapy Level of Care Needed - OT Assistance with: dressing, meal preparation, transportation, housekeeping, and shopping Barriers to Home : None Recommended Equipment: None, patient will have all recommended equipment in place at home Clinical Impression: Lisette Yuan is a 63 y.o. female s/p Left - ARTHROPLASTY REPLACEMENT TOTAL HIP, computer-assistednavigation, OrthAlign. presents with impairments including pain, decreased strength, debility, weight bearing precautions, and impaired balance resulting in functional deficits including impaired functional mobility and decreased independence with self care tasks including lower body dressing, household tasks, cooking/meal preparation, cleaning/laundry care, and driving. Lisette Yuan has good rehab potential to achieve established occupational therapy goals within the time frame outlined. Patient verbalized understanding of all instruction and no further skilled OTneeds in the hospital setting have been identified at this time. Functional Goals: HIP PRECAUTIONS:Patient will verbalize and demonstrate an understanding of hip precautions by discharge to return to prior level of function. LOWER BODY DRESSING:Patient will demonstrate lower body dressing with modified independence using adaptive equipment as needed to maximize independence and return to prior level of function. TOILETING:Patient will complete all aspects of toileting including transfer, hygiene, and clothing management with modified independence to progress functional status by discharge. DME:Patient and/or caregiver will verbalize understanding of safety and durable medical equipment recommendations to decrease dependence on caregiver and maximize safety following dismissal. AE:Patient will verbalize and demonstrate an understanding of use of adaptive equipment to maximizefunctional independence by the goal. Goal Status: All Acute OT Goals Achieved Plan Plan: Discontinue OT OT Frequency: One-time visit OT Duration: Until goals are met or hospital discharge Treatment interventions may include: self-care/home management, therapeutic activity Occupational Therapy Attestation Statement: Patient agrees with the plan of care and goals. Tiered OT Evaluation Codes: Occupational profile and history review is low. Presents with the following 1-3 performance deficits. Due to these factors, clinical decision making is considered of low complexity. Complicating Factors: Comorbidities: arthritis Personal Factors: none Time Spent with Patient Evaluations OT Eval - Low Complexity: 12 min Therapeutic Interventions Home Management Training (min): 38 min Time Tracking Total Timed Units (min): 38 min Total Treatment Time (min): 50 min Bernadette Mae O.T. documented in this encounter OR Notes * Op Note - Luciano Shepherd M.D. - 12/30/2023 8:54 AM CDT Pre-op Diagnosis Arthritis Left Hip Post-op Diagnosis Arthritis Left Hip Field Service Tech A medical assistant cardiology actively participated and was necessary for one or more of the following: opening, exposure and visualization, maintaining hemostasis, wound closure resulting in its safe and expeditious completion. Findings As expected Complications None Operative Note Narrative After explaining the risks, benefits, and alternatives to the planned procedure, the patient agreedto proceed. The patient was taken to the operating room and given spinal anesthetic by the Anesthesia staff. The patient also received a periarticular injection for pain control and 2 g of Ancef was given. With the patient then in the right lateral decubitus position and all bony prominences well padded,the left lower extremity was prepped and draped in the usual sterile fashion. A surgical pause was conducted. We placed 2 pins into the iliac crest for the [employer] navigation system. Once assembled we proceeded with the total hip replacement. The left hip was then exposed through a lateral incision. The fascia was split. The external rotators were then tagged and detached from the posterior greater trochanter. A flap of posterior capsule was detached from the posterior femur. The hip was dislocated by flexion and internal rotation. Severe degenerative changes involving the acetabulum and femoral head (Findings). The femoral head was then osteomized and removed following the preoperative templating as a guide. The medial capsulewas incised. The femur was mobilized anteriorly. The acetabulum was exposed and prepared with curets and power reamers to a size 51. A 52-mm acetabular component was then impacted into anatomic position and verified by navigation. Fixation was excellent and was enhanced with 1 screw which achieved good purchase. A trial flat, 36-mm liner was placed into the socket. The femoral canal was then power reamed and broached to accept a actis, size 3, high offset stem. A trial reduction was carried out. The -2 head size restored the patient's leg length the best. The trial 36-mm, flats liner was removed. The real 36-mm, flat liner was impacted into place. The rasp was then removed. The canal was waterpicked and dried, and the real size Actis, high offset 3 stem was impacted into position. The -2 head size restored the patient's leg length, and verified by navigation. and it allowed excellent motion, extension, and external rotation without impingement as well as to 90 degrees of flexion and up to 70 degrees of internal rotation. It was also stablein the sleeping position. The capsule and external rotators were then reattached through drill holes made in the posterior greater trochanter with No. 1 Ethibond sutures. The trochanteric bursa was closed. The rest of the wound was closed tightly in layers. The pin sites for the navigation system were closed with Monocryl. The patient tolerated the procedure well and received 2 g of Ancef prior to incision. A dressing was applied followed by a pillow placed in between the legs.. Postoperative x-rays look very satisfactory...Dictated by Dr. hSepherd/Sam. Luciano Shepherd M.D. documented in this encounter Plan of Treatment Upcoming Encounters Date Type Department Care Team (Late st Contact Info) Description 03/31/2024 11:45 AM NET PROGRAMMER ANALYST Appointment Department of Radiology in [place], [place] [address] [place] [address] Luciano Shepherd M.D. [address] [place] [address] documented as of this encounter Procedures Procedure Name Priority Date/Time Associated Diagnosis Comments DX HIP LEFT 2-3 VIEWS RAD - Routine (most inpatients and all outpatients) 12/30/2023 10:25 AM CDT ARTHROPLASTY REPLACEMENT TOTAL HIP 12/30/2023 8:02 AM CDT Other Specified Arthritis Left Hip documented in this encounter Results * DX Hip Left 2-3 Views [...] Left ADAM. Negative for postoperative purposes. Luciano WALKER DIAGNOSTIC IMAG ING PROCEDURES documented in this encounter Visit Diagnoses Diagnosis Decline Functional Status [R53.81]- Primary Difficulty Walking Orthopedic Hip Cause [R26.2] Other Specified Arthritis Left Hip documented in this encounter Administered Medications Inactive Administered Medications - up to 3 most recent administrations Medication Order MAR Action Action Date Dose Rate Site acetaminophen tablet 1,000 mg (TylenoL) 1,000 mg, oral, Every 6 hours, First dose on Sat12/30/23 at 1330, PACU & Post-Op Given 12/30/2023 2:06 PM CDT 1,000 mg acetaminophen tablet 1,000 mg (TylenoL) 1,000 mg, oral, Once, On Sat12/30/23 at 0745, For 1 dose, Pre-Op Given 12/30/2023 7:32 AM CDT 1,000 mg celecoxib capsule 400 mg (CeleBREX) 400 mg, oral, Once, On Sat12/30/23 at 0745, For 1 dose, Pre-Op Given 12/30/2023 7:31 AM CDT 400 mg Lactated Ringer's 20 mL/hr, intravenous, Continuous, Starting on Sat12/30/23 at 1015, PACU & Post-Op Continued from OR 12/30/2023 10:30 AM CDT 20 mL/hr 20 mL/hr oxyCODONE IR tablet 10 mg (Roxicodone) 10 mg, oral, Every 4 hours PRN, severe pain or score 7-10 of 10, Starting on Sat12/30/23 at 1128, PACU & Post-Op, Second line therapy. If patient is greater than 7 after 2 hours, call service for new order. May also administer lower pain scale value dose of prescribed medication based on patient request. oxyCODONE IR tablet 10 mg (Roxicodone) 10 mg, oral, Once as needed, For pain 4 or greater, Starting on Sat12/30/23 at 1040, For 1 dose, PACU (only) Given 12/30/2023 10:43 AM CDT 10 mg oxyCODONE IR tablet 5 mg (Roxicodone) 5 mg, oral, Every 4 hours PRN, moderate pain or score 4-6 of 10, Starting on Sat12/30/23 at 1128, PACU & Post-Op, Second line therapy ROPivacaine (PF) 150 mg, EPINEPHrine 100 mcg, ketorolac 15 mg in NaCl 0.9% 60 mL injection (Arthroplasty Block 75-99.9 kg) 60 mL, infiltration, Once in surgery, OR use only, Starting on Sat12/30/23 at 0640, For 1 dose, Intra-Op, *Not for IV use* Given 12/30/2023 8:57 AM CDT 60 mL Left Hip ROPivacaine (PF) 150 mg, EPINEPHrine 100 mcg, ketorolac 15 mg in NaCl 0.9% 60 mL injection (Arthroplasty Block 75-99.9 kg) 60 mL, infiltration, Once in surgery, OR use only, Starting on Sat12/30/23 at 0640, For 1 dose, Intra-Op, *Not for IV use* Given 12/30/2023 8:57 AM CDT 60 mL Left Hip traMADoL tablet 100 mg (Ultram) 100 mg, oral, Every 8 hours PRN, severe pain or score 7-10 of 10, Starting on Sat12/30/23 at 1128, PACU & Post-Op, First line therapy or for pain greater than comfort goal (not to exceed 400 mg in 24 hours). May also administer lower pain scale value dose of prescribed medication based on patient request., Restriction Criteria (Pharmacy will review and approve if criteria met): Use in adults 18 years and older traMADoL tablet 50 mg (Ultram) 50 mg, oral, Every 8 hours PRN, moderate pain or score 4-6 of 10, Starting on Sat12/30/23 at 1128, PACU & Post-Op, First line therapy, Restriction Criteria (Pharmacy will review and approve if criteria met): Use in adults 18 years and older vancomycin in NaCl 0.9% IVPB 1,500 mg 1,500 mg (rounded from 1,395 mg = 15 mg/kg ? 93 kg), intravenous, at 167 mL/hr, Administer over 90 Minutes, Once, On Sat12/30/23 at 0630, For 1 dose, Pre-Op, Administer within 2 hours prior to surgical incision, Drug Monitoring Program: Pharmacist to adjust medication dosing based on indication and drug clearance factors., Indications: Prophylaxis, surgical New Bag 12/30/2023 7:29 AM CDT 1,500 mg 167 mL/hr documented in this encounter Active and Recently Administered Medications Times are shown in CDT. Scheduled Medication Order 12/28/2023 12/29/2023 12/30/2023 acetaminophen tablet 1,000 mg (TylenoL) 1,000 mg, oral, Every 6 hours, First dose on Sat12/30/23 at 1330, PACU & Post-Op 1406 (Given - Provid er: Consuelo Lazo R.N.) acetaminophen tablet 1,000 mg (TylenoL) (COMPLETED) 1,000 mg, oral, Once, On Sat12/30/23 at 0745, For 1 dose, Pre-Op 0732 (Given - Provid er: Galileo Taylor, R.N.) celecoxib capsule 400 mg (CeleBREX) (COMPLETED) 400 mg, oral, Once, On Sat12/30/23 at 0745, For 1 dose, Pre-Op 0731 (Given - Provid er: Galileo Taylor, R.N.) ketorolac injection 15 mg (ToradoL) 15 mg, intravenous, Every 6 hours, First dose on Sat12/30/23 at 1145, For 4 doses, PACU & Post-Op, (hold for GFR <50ml/min/BSA, renal transplant, solitary kidney etc) Adult IV push rate: Over 15 seconds. Peds IV push rate: Over 1 minute. Doses > 15 mg IV/IM are discouraged due to lack of additional analgesic benefit. 1145 (Due) tranexamic acid in NaCl IVPB 1,000 mg (Cyklokapron) (COMPLETED) 1,000 mg (1 g), intravenous, at 300 mL/hr, Administer over 20 Minutes, Once, On Sat12/30/23 at 0700, For 1 dose, Intra-Op, Administer in OR upon induction 0849 (Given - Provid er: Elda Wright M.D.) tranexamic acid in NaCl IVPB 1,000 mg (Cyklokapron) (COMPLETED) 1,000 mg (1 g), intravenous, at 300 mL/hr, Administer over 20 Minutes, Once, On Sat12/30/23 at 0700, For 1 dose, Intra-Op, Administer in OR just before dropping tourniquet 0947 (Given - Provid er: Rubina Field, INSPECTOR FABRIC, INSTRUMENT SHOP SUPERVISOR) vancomycin in NaCl 0.9% IVPB 1,500 mg (COMPLETED) 1,500 mg (rounded from 1,395 mg = 15 mg/kg ? 93 kg), intravenous, at 167 mL/hr, Administer over 90 Minutes, Once, On Sat12/30/23 at 0630, For 1 dose, Pre-Op, Administer within 2 hours prior to surgical incision, Drug Monitoring Program: Pharmacist to adjust medication dosing based on indication and drug clearance factors., Indications: Prophylaxis, surgical 0729 (New Bag - Prov ider: Galileo Taylor RKayla) Continuous Medication Order 12/28/2023 12/29/2023 12/30/2023 Lactated Ringer's 75 mL/hr, intravenous, Continuous, Starting on Sat12/30/23 at 1145, PACU & Post-Op, until tolerating oral diet 1145 (Due) Lactated Ringer's 20 mL/hr, intravenous, Continuous, Starting on Sat12/30/23 at 1015, PACU & Post-Op 1030 (Continued from OR - Provider: Wes Sterling R.N. - Comment: 500 left) PRN Medication Order 12/28/2023 12/29/2023 12/30/2023 fentaNYL injection 25 mcg (Sublimaze) 25 mcg, intravenous, Every 30 min PRN, severe pain or score 7-10 of 10, Starting on Sat12/30/23 at 1128, For 3 doses, PACU & Post-Op, May administer if pain is greater than 6 after scheduled and PRN regimen exhausted. If pain remains greater than 6, notify primary service. haloperidol lactate injection 1 mg (HaldoL) 1 mg, intravenous, Every 6 hours PRN, nausea, vomiting, Starting on Sat12/30/23 at 1128, For 48 hours, PACU & Post-Op, Total of 3 doses in 24 hour period. RASS must be -2 or higher to administer. Reassess for nausea or vomiting after at least 10 minutes. If nausea or vomiting persists administer next ordered antiemetic medications (order for antiemetic medication administration ondansetron then haloperidol then prochlorperazine) ondansetron (PF) injection 4 mg (Zofran) 4 mg, intravenous, Every 6 hours PRN, nausea, vomiting, Starting on Sat12/30/23 at 1128, For 48 hours, PACU & Post-Op, Reassess for nausea or vomiting after at least 10 minutes. If nausea or vomiting persists administer next ordered antiemetic medications (order for antiemetic medication administration ondansetron then haloperidol then prochlorperazine). oxyCODONE IR tablet 10 mg (Roxicodone)(Linked Group 1) 10 mg, oral, Every 4 hours PRN, severe pain or score 7-10 of 10, Starting on Sat12/30/23 at 1128, PACU & Post-Op, Second line therapy. If patient is greater than 7 after 2 hours, call service for new order. May also administer lower pain scale value dose of prescribed medication based on patient request. oxyCODONE IR tablet 10 mg (Roxicodone) (COMPLETED) 10 mg, oral, Once as needed, For pain 4 or greater, Starting on Sat12/30/23 at 1040, For 1 dose, PACU (only) 1043 (Given - Provid er: Wes Sterling R.N.) oxyCODONE IR tablet 5 mg (Roxicodone)(Linked Group 1) 5 mg, oral, Every 4 hours PRN, moderate pain or score 4-6 of 10, Starting on Sat12/30/23 at 1128, PACU & Post-Op, Second line therapy prochlorperazine injection 5 mg (Compazine) 5 mg, intravenous, Every 6 hours PRN, nausea, vomiting, Starting on Sat12/30/23 at 1128, For 48 hours, PACU & Post-Op, RASS must be -2 or higher to administer. Reassess for nausea/vomiting after at least 10 minutes. If nausea or vomiting persists administer next ordered antiemetic medications (order for antiemetic medication administration ondansetron then haloperidol then prochlorperazine) ROPivacaine (PF) 150 mg, EPINEPHrine 100 mcg, ketorolac 15 mg in NaCl 0.9% 60 mL injection (Arthroplasty Block 75-99.9 kg) (COMPLETED) 60 mL, infiltration, Once in surgery, OR use only, Starting on Sat12/30/23 at 0640, For 1 dose, Intra-Op, *Not for IV use* 0857 (Given - Provid er: Luciano Shepherd M.D.) ROPivacaine (PF) 150 mg, EPINEPHrine 100 mcg, ketorolac 15 mg in NaCl 0.9% 60 mL injection (Arthroplasty Block 75-99.9 kg) (COMPLETED) 60 mL, infiltration, Once in surgery, OR use only, Starting on Sat12/30/23 at 0640, For 1 dose, Intra-Op, *Not for IV use* 0857 (Given - Provid er: Luciano Shepherd M.D.) traMADoL tablet 100 mg (Ultram)(Linked Group 2) 100 mg, oral, Every 8 hours PRN, severe pain or score 7-10 of 10, Starting on Sat12/30/23 at 1128, PACU & Post-Op, First line therapy or for pain greater than comfort goal (not to exceed 400 mg in 24 hours). May also administer lower pain scale value dose of prescribed medication based on patient request., Restriction Criteria (Pharmacy will review and approve if criteria met): Use in adults 18 years and older traMADoL tablet 50 mg (Ultram)(Linked Group 2) 50 mg, oral, Every 8 hours PRN, moderate pain or score 4-6 of 10, Starting on Sat12/30/23 at 1128, PACU & Post-Op, First line therapy, Restriction Criteria (Pharmacy will review and approve if criteria met): Use in adults 18 years and older Linked Groups Order Group 1: oxyCODONE IR tablet 5 mg (Roxicodone)Jump to med 5 mg, oral, Every 4 hours PRN, moderate pain or score 4-6 of 10, Starting on Sat12/30/23 at 1128, PACU & Post-Op, Second line therapy Or oxyCODONE IR tablet 10 mg (Roxicodone)Jump to med 10 mg, oral, Every 4 hours PRN, severe pain or score 7-10 of 10, Starting on Sat12/30/23 at 1128, PACU & Post-Op, Second line therapy. If patient is greater than 7 after 2 hours, call service for new order. May also administer lower pain scale value dose of prescribed medication based on patient request. Group 2: traMADoL tablet 50 mg (Ultram)Jump to med 50 mg, oral, Every 8 hours PRN, moderate pain or score 4-6 of 10, Starting on Sat12/30/23 at 1128, PACU & Post-Op, First line therapy, Restriction Criteria (Pharmacy will review and approve if criteria met): Use in adults 18 years and older Or traMADoL tablet 100 mg (Ultram)Jump to med 100 mg, oral, Every 8 hours PRN, severe pain or score 7-10 of 10, Starting on Sat12/30/23 at 1128, PACU & Post-Op, First line therapy or for pain greater than comfort goal (not to exceed 400 mg in 24 hours). May also administer lower pain scale value dose of prescribed medication based on patient request., Restriction Criteria (Pharmacy will review and approve if criteria met): Use in adults 18 years and older documented in this encounter Care Teams Cardiopulmonary Technician And Eeg Tech Relationship Specialty Start Date End Date Elsewhere, Pcp PCP - General Family Medicine 12/01/20 documented as of this encounter
--- OUTSIDE RECORDS SUMMARY | 2024-01-24 11:45 | XMS_ITS ---
Author Organization [facility] Address [address] [place] [address] Care Team Providers Care E Commerce Marketing Manager Name Role Phone Unavailable Unavailable Unavailable Surgery Details Not on file Complications Check Surgery Details section. Procedure Estimated Blood Loss Check Surgery Details section. Procedure Findings Check Surgery Details section. Procedure Specimens Taken Check Surgery Details section.
--- OUTSIDE RECORDS SUMMARY | 2024-01-24 11:45 | XMS_ITS | Clinical Summary ---
Author Organization [facility] Address [address] [place] [address] Care Team Providers Care Filter Tank Tender Helper Head Name Role Phone Elsewhere, Pcp Primary Care Provider Unavailabl e Source Comments Patient records contain information from all sites at [facility]. For routine questions regarding patient records, call [phone] during business hours, M-F 8:00 AM - 5:00 PM Central Time. Record requests for emergency care only can be directed to [phone] at any time.[facility] Allergies Active Allergy Reactions Criticality Noted [...] for 4 weeks. 30 tablet 12/30/2023 01/29/20 Active ondansetron ODT (Zofran-ODT) 4 mg disintegrating [...] in counts. 7. ??November 2009, evaluation at [facility] by Dr. Jung, initiated treatment with Cytoxan 100 mg daily. 8. ??January 2010, severe pancytopenia following initial Cytoxan which was held. ??A re-trial of Cytoxan resulted in repeat episode of severe pancytopenia. ??Patient treated with antibiotics for bronchial infection. ??Cytoxan stopped. 9. ??March 02, 2010, re-evaluation at [facility]. ??Repeat bone marrow performed showing moderately [...] 12. ??January 2012, the patient went to [facility] and met with Dr. Joey Villarreal [...] her counts also look very good. The PN is still pending. We will plan to to mail-in labs in 6 months and return visit in one year. I will discuss with Dr. Bloom if this sounds reasonable. PLAN: ?? CBC in 6 months mail in ?? Return visit in 1 year Pancytopenia 09/27/2008 11/14/2020 Encounters Date Type Department Care Team Description 01/21/2024 Clinical Communication Department of Orthopedic Surgery in [place], [place] [address] [place] [phone] Luciano Shepherd M.D. 12/31/2023 Documentation Department of Orthopedic Surgery in [place], [place] [address] [place] [phone] Lacey Wong M.D. 12/30/2023 8:20 AM CDT Anesthesia Event [facility] OR [address] [place] [address] Mulugeta Aguiar M.D. Lu, Angela, M.D. 12/30/2023 7:55 AM CDT - 12/30/2023 10:32 AM CDT Surgery [facility] OR [address] [place] [address] Luciano Shepherd M.D. ARTHROPLASTY REPLACEMENT TOTAL HIP, computer-assisted navigation, OrthAlign. 12/30/2023 5:54 AM CDT - 12/30/2023 3:21 PM CDT Hospital Encounter Outpatient Surgery Unit in [place], [place] [address] [place] [phone] Luciano Shepherd M.D. Decline Functional Status [R53.81] (Primary Dx); Difficulty Walking Orthopedic Hip Cause [R26.2] Discharge Disposition: Home or Self Care 12/26/2023 3:00 PM CDT Comprehensive Visit Preoperative Evaluation Center in [place], [place] [address] [place] [phone] Luciano Shepherd M.D. Pauly, Jacob J, JENNIFER, C.N.P., M.S. 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 Allergy Antibiotic Personal History (Primary Dx) 12/26/2023 1:15 PM CDT Clinical Support Division of Allergic Diseases in [place], [place] [address] [place] [phone] Luciano Shepherd M.D. Miller, Jaylin A R.Sher Allergy Antibiotic Personal History 12/26/2023 11:00 AM CDT Comprehensive Visit Department of Physical Medicine and Rehabilitation in [place], [place] [address] [place] [phone] Mohit Stephenson M.D. Rowenhorst, Rachel J, SPT Primary Osteoarthritis Hip Left 12/26/2023 10:00 AM CDT Office Visit Department of Orthopedic Surgery in [place], [place] [address] [place] [phone] Luciano Shepherd M.D. Kramer, Marcene K, R.NIgor Arthroplasty Total Hip Replacement Status Post Left (Primary Dx); Primary Osteoarthritis Hip Left; Pain Hip Left; Anemia Aplastic ([facility]); Preanesthetic Medical Exam; Aftercare Total Hip Arthroplasty 12/26/2023 8:00 AM CDT Internal E-Consult Division of Allergic Diseases in [place], [place] [address] [place] [phone] Kailey Li P.A.-C., M.S. Allergy Drug Personal History (Primary Dx) 12/25/2023 10:19 AM CDT - 12/25/2023 11:59 PM CDT Hospital Encounter Department of Laboratory Medicine in [address] [phone] Luciano Shepherd M.D. Primary Osteoarthritis Hip Left Discharge Disposition: Home or Self Care 12/24/2023 10:15 AM CDT Clinical Communication Virtual Review in [place], [place] [address] [place] [address] 12/24/2023 Orders Only Division of Allergic Diseases in [address] [phone] Adelia Lange R.N. Allergy Drug Personal History (Primary Dx) 12/13/2023 Orders Only Department of Orthopedic Surgery in [address] [phone] Cari Núñez R.N. Primary Osteoarthritis Hip Left (Primary Dx); Pain Hip Left 12/11/2023 3:00 PM CDT Telemedicine Department of Patient Education in [address] [phone] Mohit Stephenson M.D. Primary Osteoarthritis Hip Left 11/20/2023 Clinical Communication Department of Orthopedic Surgery in [address] [phone] Luciano Shepherd M.D. Document needed from Pre-cert 10/24/2023 Orders Only Department of Orthopedic Surgery in [address] [phone] Cari Núñez RKayla Allergy Antibiotic Personal History (Primary Dx); Primary Osteoarthritis Hip Left; Pain Hip Left; Anemia Aplastic (HCC); Preanesthetic Medical Exam from Last 3 Months Immunizations Name Administration Dates Next Due Influenza Split 01/15/2011 PPSV23 04/15/2011 SARS-COV-2 (COVID-19) - MODERNA(Discontinued) Tdap 04/15/2010,10/13/2002 Family History Medical History Relation Name Comments Alcohol abuse Father Alex Immel Coronary artery disease Father Alex Immel Melanoma Father Alex Immel Transient ischemic attack Father Alex Immel Pancreatic cancer Maternal Grandmother Kristin [place] Dementia Mother Constance Immel Hyperlipidemia Mother Constance Immel Suicide Attempts Mother Constance Immel Thyroid disease Mother Constance Immel Kidney cancer Paternal Grandfather Bethel Immel Relation Name Status Comments Father Alex Yuan Maternal Grandmother Kristin Vora Mother Constance Yuan Paternal Grandfather Bethel Yuan Social History Tobacco Use Types Packs/Day Years Used Date Smoking Tobacco: Never Smokeless Tobacco: Never Tobacco Cessation:Counseling Given: Not Answered Alcohol Use Standard Drinks/Week Comments Yes 4 (1 standard drink = 0.6 oz pur e alcohol) [facility] Utilities Answer Date Recorded In the past 12 months has e [employer], gas, oil, or water company threatened to [...] your living situation today? I have a [facility] place to live 10/18/2023 Sex [...] st Contact Info) Description 03/31/2024 11:45 AM HACKSAW INSPECTOR Appointment Department of Radiology in [place], [place] [address] [place] [address] Luciano Shepherd M.D. [address] [place] [address] Health Maintenance Due Date Last Done Comments CT Colonography 1961 Cologuard 1961 FIT 1961 Pneumococcal vaccine (0-64 years) (3 of 3 - PCV) 01/16/2013 01/17/2012, 04/15/2011 Cervical Cancer Screening 10/11/20132010 (Performed elsewhere) Mammogram 01/13/2014 01/13/2013 (Perf ormed elsewhere), 01/14/2012 (Performed elsewhere), 10/18/2010 (Performed elsewhere) Lipid (Cholesterol) Screening 10/12/2015 10/11/2010 (Performed elsewhere) Thyroid Stimulating Hormone (TSH) test for thyroid function 09/16/2018 09/16/2017, 03/18/2017, 09/19/2016, Additional history exists RSV vaccine - (32-36 weeks) or 60+ years (1 - Risk 60-74 years 1-dose series) 2021 Depression Screening (Annual PHQ-2) 04/15/2023 COVID-19 Vaccine ( season) 2023 03/20/2022, 07/18/2021, 12/01/2020, Additional history exists Influenza Vaccine (#1) 2024 3, 02/01/2022, 01/16/2021, Additional history exists Fasting Glucose for Diabetes Screening 12/24/2026 12/25/2023, 11/10/2020, 03/14/2016, Additional history exists Colonoscopy 01/03/2030 01/04/2020, 10/13, 10/13/2010 (Performed elsewhere) Colorectal Cancer Screening 01/03/2030 DTaP,Tdap,and Td Vaccines (4 - Td or Tdap) 01/16/2031 01/16/2021, 04/15/2010, 10/13/2002 Hepatitis C Screening Completed 09/27/2008 Zoster Vaccines Completed 05/27/2019, 03/27/2019 HPV Vaccines Aged Out No longer eligi ble based on patient's age to complete this topic Medical Devices Implanted Type Area Application Defense Manager Device Identifier Shelf Expiration Date Model / Serial / Lot Scrw Trl Acet Ft 6.5x30 - [id number] Implanted:Qty : 1 on 12/30/2023 by Luciano Shepherd M.D. at [facility] Hardware e.g. pins/screws/ rods Left: Hip [employer] [id number] [facility] 08/05/2033 [id number] / / [id number] Shll Acet G7 Lhl 52 - [id number] Implanted:Qty : 1 on 12/30/2023 by Luciano Shepherd M.D. at [facility] Hip Implant Left: Hip [employer] 07/05/2033 [id number] / / [id number] Lnr G7 Vv Std Andreas 36 - [id number] Implanted:Qty : 1 on 12/30/2023 by Luciano Shepherd M.D. at [facility] Hip Implant Left: Hip [employer] 08/18/2028 [id number] / / [id number] Hip Stm Actis Hofst Sz3 - [id number] Implanted:Qty : 1 on 12/30/2023 by Luciano Shepherd M.D. at [facility] Hip Implant Left: Hip Depuy Synthes 09/12/2033 [id number] / / [id number] Fem Hd Art -2ofst 36 - [id number] Implanted:Qty : 1 on 12/30/2023 by Luciano Shepherd M.D. at [facility] Hip Implant Left: Hip Depuy Synthes 07/13/2033 [id number] / / [id number] Procedures Procedure Name Priority Date/Time Associated Diagnosis [...] fellow participated in the procedure, and the residential sales consultant was present for the entire procedure. Mulugeta Aguiar M.D. PROCEDURE/MINOR SURG ICAL ORDERABLES * Penicillin Skin Test (12/26/2023 1:15 PM CDT) Narrative MMODAL - 12/26/2023 1:15 PM CDT Katie Borjas R.N. ? 12/26/2023 ??2:10 PM Penicillin and other antibiotic skin test ?? Flowsheet Row Clinical Support from 12/26/2023 in Division of Allergic Diseases in [place], [place] Penicillin and other antibiotics (Prick) ?? [...] with Differential, Blood (12/25/2023 10:23 AM CDT) [facility] Hemoglobin 12.6 11.6 - 15.0 g/dL 12/25/2023 [...] M.D. LAB BLOOD ADD-ON Performing Organization Address [facility]/State/[facility] Co de Phone Number [facility] [address] [place] [address], [facility] [place] [address] * (ABNORMAL) Basic Metabolic Panel (12/25/2023 10:23 [...] CDT Luciano Shepherd M.D. LAB BLOOD ADD-ON [facility] [address] [place] [address], [facility] [place] [address] * Thyroid Function [place] (09/16/2017 11:44 AM CDT) TSH, Sensitive 3.8 0.3 - 4.2 mIU/L 09/16/2017 12:56 PM CDT [facility] Blood 09/16/2017 11:4 4 AM CDT 09/16/2017 12:06 PM CDT Iqra Hurt M.D., M.P.H. LAB BLOOD ADD -ON [facility] [address] [place] [address], [facility] from Last 3 Months or Most Recently Relevant to Health Maintenance Advance Directives For more information, please contact: [phone] * Full Code (Latest Code Status on File) Date Activated Date Inactivated Comments 12/30/2023 11:28 AM 12/30/2023 5:27 PM Question Answer Comments Full Code: Not Discussed Due to: Patient not available * Full Code Date Activated Date Inactivated Comments 12/30/2023 6:04 AM 12/30/2023 11:28 AM Question Answer Comments Full Code: Not Discussed Due to: Patient not available Care Teams Filter Tank Tender Helper Head Relationship Specialty Start Date End Date Elsewhere, Pcp PCP - General Family Medicine 12/01/20
--- OUTSIDE RECORDS SUMMARY | 2024-01-24 11:45 | XMS_ITS | Encounter Summary ---
Author Organization [facility] Address [address] [place] [address] Care Team Providers Care Basin Finish Operator Tig Welder Name Role Phone Elsewhere, Pcp Primary Care Provider Unavailabl e Reason for Visit * Auth/Cert (Routine) Specialty Diagnoses / Procedures Referred By Blayne joseph Referred To Contact Diagnoses Other Specified Arthritis Left Hip Other Specified Arthritis Left Hip [M13.852] Procedures VA ARTHRO ACETAB&FEM PROSTH (ADAM) VA CASN PROC MUSSKL NO IMG ARTHROPLASTY REPLACEMENT TOTAL HIP with computer-assisted navigation (OrthAlign) Luciano Shepherd M.D. [address] [place] [phone] Referral ID Status Reason Start Date Expiration Date Visits Re quested Visits Authorized [id number] 1 1 Encounter Details Date Type Department Care Team (Latest Contact Info) Description 12/30/2023 5:54 AM CDT - 12/30/2023 3:21 PM CDT Hospital Encounter Outpatient Surgery Unit in [place], [place] [address] [place] [phone] Luciano Shepherd M.D. [address] [place] [phone] Decline Functional Status [R53.81] (Primary Dx); Difficulty Walking Orthopedic Hip Cause [R26.2] Discharge Disposition: Home or Self Care Social History Tobacco Use Types Packs/Day Years Used Date Smoking Tobacco: Never Smokeless Tobacco: Never Alcohol Use Standard Drinks/Week Comments Yes 4 (1 standard drink = 0.6 oz pur e alcohol) [facility] Utilities Answer Date Recorded In the past [...] your living situation today? I have a [facility] place to live 10/18/2023 Sex and Gender [...] Physical Therapy Inpatient Evaluation/Treatment SUBJECTIVE Patient's Name: Lisetteomer Yuan Referring/Attending Provider: Luciano Shepherd M.D. Medical Diagnosis: Other Specified Arthritis Left Hip [M13.852] Reason for Referral: PT Evaluate and Treat Weight-bearing as tolerated lower extremity Onset Date: 12/30/23 Payor: [employer] / [facility] / Product Type: PPO / PERTINENT [...] Driving: Independent Prior Mobility/Functional Transfers Level of [place]: Independent Home Equipment Gait Devices Owned: Front-wheeled [...] needs met and questions answered. Outcome Measures [facility] Inpatient Short Form: [facility] Basic Mobility (V.2) How much help from [...] 3-5 steps with a railing?: A Little -[facility] Basic Mobility (V.2) Raw Score: 22 [facility] Basic Mobility (V.2) Standardized Score: 47.4 Interpretation: Clinicians answer the [facility] Inpatient Short Form based on observed patient [...] Total Treatment Time (min): 21 min Js Lizy, P.T., ChrissyPIgorT. * Bernadette Mae O.T. - 12/30/2023 2:28 PM CDT Occupational Therapy Acute Hospital Inpatient Evaluation/Treatment By co-signing this note, [...] 63 y.o. 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 Outcome Measures: [facility] Inpatient Short Form: Putting on and taking [...] at or below 17 Clinicians answer the [facility] Inpatient Short Form based on observed patient activity and/or clinical judgment (ie. patient can be scored without physically performing each activity) Treatment consisted of: Bed Mobility: -Patient instructed on compensatory strategies to improve transfer in/out of bed. Recommendations provided with adaptations for correct sequencing, technique, and modification tools including leg hypoid gear generator as needed and/or bed adjustments. Completes at [...] Guided practice performed utilizing the following equipment home health outreach coordinator, sock aid, long handled shoe horn, dressing [...] doffing over it last. Guidedpractice performed with Radar Signal Processing Engineer, Sock Aid, Long Handled Shoe Horn, Dressing Stick. Toileting -Patient instructed on accurate positioning and modifications for toileting skills with hygiene care and clothing management to adhere to precautions. Education and recommendations provided on toiletseat modifications. Bed Mobility: -Patient instructed on compensatory strategies to improve transfer in/out of bed. Recommendations provided with adaptations for correct sequencing, technique, and modification tools including leg hypoid gear generator and/or bed adjustments. Functional Transfers: -Provided instruction and cues during functional sit to/from stand transfers, including body alignment to surface, appropriate hand placement, and optimal placement of surgical extremity to optimize safety and technique. Handouts provided today: Protecting your Hip Arthroplasty After Surgery [id number] Bathroom Safety Equip. [id number] Patient Disposition at the end of Treatment: [...] Left Hip Post-op Diagnosis Arthritis Left Hip Chief Of Pediatric Urology A hospital clinic assistant actively participated and was necessary for one [...] pins into the iliac crest for the OrthAlign navigation system. Once assembled we proceeded with [...] Postoperative x-rays look very satisfactory...Dictated by Dr. Shepherd/*. Luciano Shepherd M.D. documented in this encounter Plan of Treatment Upcoming Encounters Date Type Department Care Team (Late st Contact Info) Description 03/31/2024 11:45 AM SLEEPING CAR CONDUCTOR Appointment Department of Radiology in [place], [place] [address] [place] [address] Luciano Shepherd M.D. [address] [place] [address] documented as of this encounter Procedures Procedure [...] Primary Difficulty Walking Orthopedic Hip Cause [R26.2] documented in this encounter Administered Medications Inactive [...] 1128, PACU & Post-Op, Second line therapy traMADoL tablet 100 mg (Ultram) 100 mg, [...] 1406 (Given - Provid er: Consuelo Lazo RIgorN.) acetaminophen tablet 1,000 mg (TylenoL) (COMPLETED) 1,000 mg, oral, Once, On Sat12/30/23 at 0745, For 1 dose, Pre-Op 0732 (Given - Provid er: Galileo Taylor R.N.) celecoxib capsule 400 mg (CeleBREX) (COMPLETED) 400 mg, oral, Once, On Sat12/30/23 at 0745, For 1 dose, Pre-Op 0731 (Given - Provid er: Galielo Taylor, R.N.) ketorolac injection 15 mg (ToradoL) [...] 0947 (Given - Provid er: Rubina Field, INSTRUCTIONAL ASSISTANT, CLIENT HR MANAGER) vancomycin in NaCl 0.9% IVPB 1,500 mg [...] older documented in this encounter Care Teams Basin Finish Operator Tig Welder Relationship Specialty Start Date End Date Elsewhere, Pcp PCP - General Family Medicine 12/01/20 documented as of this encounter
--- OUTSIDE RECORDS SUMMARY | 2024-01-24 11:45 | XMS_ITS | Encounter Summary ---
Author Organization [facility] Address [address] [place] [address] Care Team Providers Care Printed Circuit Boards Beveler Name Role Phone Elsewhere, Pcp Primary Care Provider Unavailabl e Reason for Visit * Auth/Cert (Routine) Specialty Diagnoses / Procedures Referred By Blayne t Referred To Contact Diagnoses Other Specified Arthritis Left Hip Other Specified Arthritis Left Hip [M13.852] Procedures WA ARTHRO ACETAB&FEM PROSTH (ADAM) WA CASN PROC MUSSKL NO IMG ARTHROPLASTY REPLACEMENT TOTAL HIP with computer-assisted navigation (OrthAlign) Luciano Shepherd M.D. [address] [place] [phone] Referral ID Status Reason Start Date Expiration Date Visits Re quested Visits Authorized [id number] 1 1 Encounter Details Date Type Department Care Team (Late st Contact Info) Description 12/30/2023 8:20 AM CDT Anesthesia Event [facility] [address] [place] [phone] Mulugeta Aguiar M.D. [address] [place] [phone] Elda Wright M.D. [address] [place] [phone] Anesthesia Record Procedure Summary Procedure Name Responsible Anesthesiologist Anesthesia Start Time Anesthesia Stop Time ARTHROPLASTY REPLACEMENT TOTAL HIP, computer-assisted navigation, OrthAlign. (Left) Mulugeta Aguiar M.D. 12/30/23 0820 12/30/23 1037 Events Date Time Event Comment 12/30/2023 0820 An Start Machine/Equipme nt Checked Infection Precautions Followed Procedure/Site Verified NPO Status Verified Supine Standard ASA Monitors Applied 0830 Anesthesia Time Out 0835 Block End 0840 Turnover to Proceduralist 0854 Proc Start 0933 Anes CS Handoff I, Elda Wright M.D., attest that I have reconciled the controlled substances and that I have reviewed all the significant information with the next anesthesia provider assuming care of this patient. 0939 Quick Note Arms, NBP cuff repositioned; re-padded, secured 0951 Anes CS Handoff I, Rubina bhatti APRN, CAMP HEAD COUNSELOR, attest that I have reconciled the controlled substances and that I have reviewed all the significant information with the next anesthesia provider assuming care of this patient. 1006 Proc Fin 1013 Turnover to ANE Staff 1021 an stop data 1037 An End I completed my handoff to the receiving staff during which we 1. Identified the patient 2. Identified the responsible provider 3. Reviewed the pertinent medical history 4. Discussed the surgical course 5. Reviewed intra-op anesthesia management and issues during anesthesia 6. Set expectations for post-procedure period 7. Allowed opportunity for questions and acknowledgement of understanding. Meds Name Total midazolam 1 mg/mL injection 2 mg fentaNYL PF injection 50 mcg/mL 100 mcg propofol 10 mg/mL infusion 584.97 mg mepivacaine PF 2% injection 3.5 mL tranexamic acid in NaCl IVPB 1,000 mg (C yklokapron) 1 g tranexamic acid in NaCl IVPB 1,000 mg (C yklokapron) 1 g ceFAZolin (Ancef) injection 1 g/5 mL 2 g phenylephrine 100 mcg/mL injection 100 m cg ondansetron PF 4 mg/2 mL injection 4 mg dexAMETHasone (Decadron) injection 4 mg/ mL 8 mg Lactated Ringers Free Drip 500 mL * Agents No agents on file. * Blood No blood administrations on file. Lines, Drains, and Airways Type Details Placement Removal Wound 12/30/23; Incision; Hip; Left, Lateral; 1 incision, 2 pin sites 12/30/23 0000 by Dionne Arreola R.N. Peripheral IV Placement Date: 12/14 10/06; Placement Time: 610; Catheter Size: 20 G; Orientation: Left, Posterior; Location: Hand; Site Prep: Chlorhexidine (Preferred); Technique: Anatomical landmarks; Inserted by: latosha; Insertion Attempts: 1; Removal Date: 12/30/23; Removal Time: 1514; Removal Reason: Completion of therapy 12/30/23 06 by Blossom Tao 12/30/231514 by Consuelo Lazo R.N. documented in this encounter Social History Tobacco Use Types Packs/Day Years Used Date Smoking Tobacco: Never Smokeless Tobacco: Never Alcohol Use Standard Drinks/Week Comments Yes 4 (1 standard drink = 0.6 oz pur e alcohol) [facility] Utilities Answer Date Recorded In the past 12 months has e [employer], gas, oil, or water [employer] threatened to shut off services in your [...] your living situation today? I have a [place] place to live 10/18/2023 Sex and Gender Information Value Date Recorded Sex Assigned at Female 01/02/2021 12:49 PM CDT Gender Identity Female 01/02/2021 12:49 PM CDT Sexual Orientation Straight 01/02/2021 12 :49 PM CDT documented as of this encounter OR Notes * Anesthesia Postprocedure Evaluation - Mulugeta Aguiar M.D. - 12/30/2023 10:48 AM CDT Patient: Lisette Yuan Procedure Summary Date: 12/30/23 Room / Location: [address] [facility] in [place], [place] Anesthesia Start: 819 Anesthesia Stop: 1037 Procedure: ARTHROPLASTY REPLACEMENT TOTAL HIP, computer-assisted navigation, OrthAlign. (Left) Diagnosis: Other Specified Arthritis Left Hip (Other Specified Arthritis Left Hip [M13.852].) Providers: Luciano Shepherd M.D. Responsible Provider: Mulugeta Aguiar M.D. Anesthesia Type: regional ASA Status: 3 Anesthesia Type: regional Last vitals Vitals Value Taken Time BP 106/70 12/30/23 1045 Temp 36.5 ??C 12/30/23 1025 Pulse 52 12/30/23 1048 Resp 11 12/30/23 1048 SpO2 97 % 12/30/23 1048 Vitals shown include unfiled device data. Please reference Vitals flowsheet for most recent vital signs. Anesthesia Post Evaluation Patient Disposition: dismissal Cardiovascular status: hemodynamics (HR & BP) acceptable Respiratory status: patent airway with spontaneous effort Temperature: normothermic Oxygen requirements: room air Level of consciousness: awake Pain score: pain adequately controlled and/or at baseline Post Op nausea/vomiting: none Hydration status: euvolemic Notable Events No notable events documented. * Anesthesia Procedure Notes - Elda Wright M.D. - 12/30/2023 9:01 AM CDT Associated Order(s): Regional Block Regional Block Date/Time: 12/30/2023 8:32 AM Performed by: Elda Wright M.D. Authorized by: Mulugeta Aguiar M.D. Location: OR PROCEDURE DETAILS: Block Indication: primary anesthetic Block Type - Neuraxial: spinal Positioning: sitting Approach: midline Level inserted: L3-4 Injection technique: single injection Needle type: pencan Gauge: 24G Length: 10 CSF: yes Pain with needle advancement or injection of local anesthetic: no Injected Medications: Injection(s), anesthetic agent(s) and/or steroid; [...] confirmed in a procedural pause. PRE-PROCEDURE DETAILS: Appropriate hand hygiene, gown, cap, mask, protective eyewear, sterile gloves, skin preparation, sterile drape, and strict aseptic technique were utilized as applicable for the procedure.: yes Skin prep: chlorhexidine / alcohol SEDATION / ANESTHESIA Anesthesia method: local infiltration and minimal sedation (anxiolysis) Local infiltrate type: lidocaine Minimal sedation type: see MAR for dose POST-PROCEDURE DETAILS: Procedure completed successfully: successful procedure Notable Events: none ATTESTATION STATEMENT A resident or fellow participated in the procedure, and the it solutions sales consultant was present for the entire procedure. * Anesthesia Preprocedure Evaluation - Elda Wright M.D. - 12/30/2023 7:22 AM CDT Preprocedure Anesthesia & H&P Assessment Procedure Summary Date/Time: 12/30/23 0755 Procedure: ARTHROPLASTY REPLACEMENT TOTAL HIP, computer-assisted navigation, OrthAlign. (Left) Diagnosis: Other Specified Arthritis Left Hip [M13.852] Pre-op diagnosis: Other Specified Arthritis Left Hip [M13.852]. Location: [place] [address] / [facility] in [place], [place] Providers: Luciano Shepherd M.D. Pertinent components of the patient's history including current problem list, medical history, surgical history, family history, social history, medications and allergies were reviewed. Present illness and pre-op diagnosis were confirmed. The planned surgery / procedure was verified with the patient / legal guardian. The patient's general health condition remains unchanged RELEVANT COMORBID CONDITIONS RESP (+) Obstructive Sleep Apnea Adult RENAL/REPRO (+) Chronic Kidney Disease (CKD), Stage 3a Glomerular Filtration Rate (GFR) 45 To 59 (HCC) ENDO (+) Hypothyroidism Other (+) Obesity Body Mass Index 30-39.9 Adult OBJECTIVE PHYSICAL EXAMINATION Airway (HEENT) Mallampati: III TM Distance: >3 FB Neck ROM: Full Mouth Opening: >3 cm Upper Lip Bite Test Class: I Cardiovascular Rhythm: Regular Rate: Normal Cardiovascular Assessment: cardiovascular normal Functional Capacity: >4 METS Pulmonary Pulmonary Assessment: Clear General / Constitutional Constitutional Assessment: Normal Neurological Neurologic Assessment: alert and alert and oriented x 3 Dental Dental Assessment: dentition intact ASSESSMENT / PLAN ANESTHESIA PLAN ASA: 3 Anesthesia Plan: regional Patient seen and allergies reviewed, anesthesia plan and risks discussed directly with patient /legal guardian or through an audit lead. Risks/Benefits/Alternatives of Blood transfusion discussed with patient / legal guardian, includingan opportunity to ask questions and/or decline some or all transfusion therapies. The patient / legal guardian consented to the use of all blood products, as deemed medically necessary Approval to Proceed: approved for anesthesia documented in this encounter Plan of Treatment Upcoming Encounters Date Type Department Care Team (Late st Contact Info) Description 03/31/2024 11:45 AM SUPERVISOR BLASTING Appointment Department of Radiology in [place], [place] [address] [place] [phone] Luciano Shepherd M.D. [address] [place] [phone] documented as of this encounter Procedures Procedure Name Priority Date/Time Associated Diagnosis Comments ANESTHESIA REGIONAL BLOCK Routine 12/30/2023 8:32 AM CDT documented in this encounter Results * Regional Block (12/30/2023 8:32 AM CDT) [...] Medications: Injection(s), anesthetic agent(s) and/or steroid; See [facility] UNIVERSAL PROTOCOL All relevant documentation and testing [...] infiltrate type: lidocaine Minimal sedation type: see [facility] for dose POST-PROCEDURE DETAILS: Procedure completed successfully: successful procedure Notable Events: none ATTESTATION STATEMENT A resident or fellow participated in the procedure, and the it solutions sales consultant was present for the entire procedure. Mulugeta Aguiar M.D. PROCEDURE/MINOR SURG ICAL ORDERABLES documented in this encounter Visit Diagnoses Not on filedocumented in this encounter Administered Medications Inactive Administered Medications - up to 3 most recent administrations Medication Order MAR Action Action Date Dose Rate Site ceFAZolin injection (Ancef) intravenous, As needed, Starting on 12/30/23 at 0853, Anesthesia Intra-op Given 12/30/2023 8:53 AM CDT 2 g dexAMETHasone injection (Decadron) intravenous, As needed, Starting on Sat12/30/23 at 0900, Anesthesia Intra-op Given 12/30/2023 9:00 AM CDT 8 mg fentaNYL injection (Sublimaze) intravenous, As needed, Starting on Sat12/30/23 at 0828, Anesthesia Intra-op Given 12/30/2023 9:06 AM CDT 50 mcg Given 12/30/2023 8:28 AM CDT 50 mcg Lactated Ringer's intravenous, Continuous Infusion: Per Instructions PRN, Starting on Sat12/30/23 at 0829, Anesthesia Intra-op New Bag 12/30/2023 8:29 AM CDT mepivacaine (PF) 20 mg/mL (2 %) injection (Polocaine) intrathecal, As needed, Starting on Sat12/30/23 at 0834, Anesthesia Intra-op Given 12/30/2023 8:34 AM CDT 3.5 mL midazolam (PF) injection (Versed) intravenous, As needed, Starting on Sat12/30/23 at 0828, Anesthesia Intra-op Given 12/30/2023 8:30 AM CDT 1 mg Given 12/30/2023 8:28 AM CDT 1 mg ondansetron (PF) injection (Zofran) intravenous, As needed, Starting on Sat12/30/23 at 0900, Anesthesia Intra-op Given 12/30/2023 9:00 AM CDT 4 mg phenylephrine injection intravenous, As needed, Starting on Sat12/30/23 at 0948, Anesthesia Intra-op Given 12/30/2023 9:48 AM CDT 100 mcg propofol 10 mg/mL infusion (Diprivan) intravenous, Continuous Infusion: Per Instructions PRN, Starting on Sat12/30/23 at 0836, Anesthesia Intra-op Rate/Dose Change 12/30/2023 9:27 AM CDT 50 mcg/kg/min 27.9 mL/hr Rate/Dose Change 12/30/2023 9:13 AM CDT 60 mcg/kg/min 33.4 8 mL/hr Rate/Dose Change 12/30/2023 9:09 AM CDT 75 mcg/kg/min 41.8 5 mL/hr tranexamic acid in NaCl IVPB 1,000 mg (Cyklokapron) 1,000 mg (1 g), intravenous, at 300 mL/hr, Administer over 20 Minutes, Once, On Sat12/30/23 at 0700, For 1 dose, Intra-Op, Administer in OR upon induction Given 12/30/2023 8:49 AM CDT 1 g tranexamic acid in NaCl IVPB 1,000 mg (Cyklokapron) 1,000 mg (1 g), intravenous, at 300 mL/hr, Administer over 20 Minutes, Once, On Sat12/30/23 at 0700, For 1 dose, Intra-Op, Administer in OR just before dropping tourniquet Given 12/30/2023 9:47 AM CDT 1 g documented in this encounter Care Teams Printed Circuit Boards Beveler Relationship Specialty Start Date End Date Elsewhere, Pcp PCP - General Family Medicine 12/01/20 documented as of this encounter
--- OUTSIDE RECORDS SUMMARY | 2024-01-24 11:45 | XMS_ITS | Encounter Summary ---
Author Organization [facility] Address [address] [place] [phone] Care Team Providers Care Television Audio Engineer Name Role Phone Elsewhere, Pcp Primary Care Provider Unavailabl e Encounter Details Date Type Department Care Team (Late st Contact Info) Description 12/31/2023 Documentation Department of Orthopedic Surgery in [place], [place] [address] [place] [phone] Lacey Wong M.D. [address] [place] [phone] Social History Tobacco Use Types Packs/Day Years Used Date Smoking Tobacco: Never Smokeless Tobacco: Never Alcohol Use Standard Drinks/Week Comments Yes 4 (1 standard drink = 0.6 oz pur e alcohol) [facility] Utilities Answer Date Recorded In the past 12 months has [employer], oil, or water [employer] threatened to shut off services in your [...] your living situation today? I have a [facility] place to live 10/18/2023 Sex and Gender Information Value Date Recorded Sex Assigned at Female 01/02/2021 12:49 PM CDT Gender Identity Female 01/02/2021 12:49 PM CDT Sexual Orientation Straight 01/02/2021 12 :49 PM CDT documented as of this encounter Progress Notes * Lacey Wong M.D. - 12/31/2023 4:49 PM CDT POD1 Outpatient Arthroplasty Call The patient is POD1 status post left ADAM with Dr. Shepherd. I spoke with the patient today on the phone. They are doing well overall at this time and deny any significant post op issues. They are ambulating well with the walker. Pain has been well controlled. They understand the plan for taking post operative aspirin prescribed. All questions were answered and we look forward to seeing them back. They know to reach out with any questions or concerns. Josias Wong MD Service of Dr. Shepherd documented in this encounter Plan of Treatment Upcoming Encounters Date Type Department Care Team (Late st Contact Info) Description 03/31/2024 11:45 AM DIAMOND CLEAVER Appointment Department of Radiology in [place], [place] [address] [place] [address] Luciano Shepherd M.D. [address] [place] [phone] documented as of this encounter Visit Diagnoses Not on filedocumented in this encounter Care Teams Television Audio Engineer Relationship Specialty Start Date End Date Elsewhere, Pcp PCP - General Family Medicine 12/01/20 documented as of this encounter
--- OUTSIDE RECORDS SUMMARY | 2024-01-24 11:46 | XMS_ITS | Encounter Summary ---
Author Organization [facility] Address [address] [place] [phone] Care Team Providers Care International Sourcing Manager Name Role Phone Elsewhere, Pcp Primary Care Provider Unavailabl e Reason for Referral * Specialty Diagnoses / Procedures Referred By Blayne joseph Referred To Contact Mohit Stephenson M.D. [address] [place] [phone] [facility] Referral ID Status Reason Start Date Expiration Date Visits Re quested Visits Authorized Scheduling Instructions Anticipated Surgery Date is surgery on 12/30/23 . If schedulers are having a hard time finding class availability and/or patient needs an machine repairer, call [phone] to assist with scheduling. * Physical Therapy (Routine) - Closed Specialty Diagnoses / Procedures Referred By Blayne joseph Referred To Contact Diagnoses Primary Osteoarthritis Hip Left Procedures PT Evaluate and treat Mohit Stephenson M.D. [address] [place] [phone] [facility] Referral ID Status Reason Start Date Expiration Date Visits Re quested Visits Authorized [id number] Closed 10/23/2023 10/22/2024 1 1 Reason for Visit * Appointment Request (Routine) - Closed Specialty Diagnoses / Procedures Referred By Blayne joseph Referred To Contact Orthopedic Surgery Diagnoses Pain Hip Left Referral ID Status Reason Start Date Expiration Date Visits Re quested Visits Authorized [id number] Closed 09/27/2023 09/26/2024 1 1 Encounter Details Date Type Department Care Team (Latest Contact Info) Description 10/23/2023 11:45 AM CDT Office Visit Department of Orthopedic Surgery in [place], [place] [address] [place] [phone] Luciano Shepherd M.D. [address] [place] [phone] Primary Osteoarthritis Hip Left (Primary Dx) Social History Tobacco Use Types Packs/Day Years Used Date Smoking Tobacco: Never Smokeless Tobacco: Never [facility] Utilities Answer Date Recorded In the past [...] your living situation today? I have a el place to live 10/18/2023 Sex and [...] the day of surgery (early afternoon) Joint Ballroom Dance Instructor You are required to have the assistance of a caregiver(s) or ???Ballroom Dance Instructor?? for 24 hours per day for the first 3 days following surgery After 3 days, your Ballroom Dance Instructor or another caregiver should be available as needed for 3 weeks after surgery Your Ballroom Dance Instructor should attend as able all of the [...] are not limited to): Oxycodone (OxyContin), Hydrocodone ([place]), Morphine, Dilaudid, Percocet, Vicodin, and Tramadol. No [...] st Contact Info) Description 03/31/2024 11:45 AM VEGETABLE LOADER MACHINE OPERATOR Appointment Department of Radiology in [place], [place] [address] [place] [phone] Luciano Shepherd M.D. [address] [place] [phone] Scheduled Referrals Name Type Priority Associated Diagnoses Orde r Schedule Patient Education - Total Joint (Hip or Knee) Replacement Education Visit (Clinic) Outpatient Referral Routine Primary Osteoarthritis Hip Left Expected: 10/29/2023, Expires: 01/22/2025 documented as of this encounter Visit Diagnoses Diagnosis Primary Osteoarthritis Hip Left- Primary documented in this encounter Care Teams International Sourcing Manager Relationship Specialty Start Date End Date Elsewhere, Pcp PCP - General Family Medicine 12/01/20 documented as of this encounter
--- OUTSIDE RECORDS SUMMARY | 2024-01-24 11:46 | XMS_ITS | Encounter Summary ---
Author Organization [facility] Address [address] [place] [phone] Care Team Providers Care Demand Generation Manager Name Role Phone Elsewhere, Pcp Primary Care Provider Unavailabl e Reason for Referral * Outpatient (Routine) - Authorized Specialty Diagnoses / Procedures Referred By Blayne joseph Referred To Contact Diagnoses Aftercare Total Hip Arthroplasty Arthroplasty Total Hip Replacement Status Post Left Procedures DX Hip And Pelvis Left 4+ Views Luciano Shepherd M.D. 200 [place] [phone] [facility] Referral ID Status Reason Start Date Expiration Date V isits Requested Visits Authorized [id number] Authorized 12/26/2023 12/25/2024 1 1 * Outpatient (Routine) - Authorized Specialty Diagnoses / Procedures Referred By Blayne joseph Referred To Contact Orthopedic Surgery Diagnoses Aftercare Total Hip Arthroplasty Arthroplasty Total Hip Replacement Status Post Left Luciano Shepherd M.D. 200 [place] [phone] Luciano Shepherd M.D. 200 [place] [address] Referral ID Status Reason Start Date Expiration Date V isits Requested Visits Authorized [id number] Authorized 12/26/2023 06/26/2025 1 1 Reason for Visit * Outpatient (Routine) - Closed Specialty Diagnoses / Procedures Referred By Blayne joseph Referred To Contact Orthopedic Surgery Diagnoses Primary Osteoarthritis Hip Left Pain Hip Left Anemia Aplastic (HCC) Preanesthetic Medical Exam Luciano Shepherd M.D. [address] [place] [phone] Luciano Shepherd M.D. [address] [place] [phone] Referral ID Status Reason Start Date Expiration Date Visits Re quested Visits Authorized [id number] Closed 10/24/2023 04/24/2025 1 1 Encounter Details Date Type Department Care Team (Latest Contact Info) Description 12/26/2023 10:00 AM CDT Office Visit Department of Orthopedic Surgery in [place], [place] [address] [place] [phone] Luciano Shepherd M.D. [address] [place] [phone] Cari Núñez R.N. [address] [place] [phone] Arthroplasty Total Hip Replacement Status Post Left (Primary Dx); Primary Osteoarthritis Hip Left; Pain Hip Left; Anemia Aplastic (HCC); Preanesthetic Medical Exam; Aftercare Total Hip Arthroplasty Social History Tobacco Use Types Packs/Day Years Used Date Smoking Tobacco: Never Smokeless Tobacco: Never Alcohol Use Standard Drinks/Week Comments Yes 4 (1 standard drink = 0.6 oz pur e alcohol) [facility] Utilities Answer Date Recorded In the past 12 months has [employer], gas, oil, or water [email or web address] threatened to shut off services in your [...] your living situation today? I have a [facility] place to live 10/18/2023 Sex and Gender Information Value Date Recorded Sex Assigned at Female 01/02/2021 12:49 PM CDT Gender Identity Female 01/02/2021 12:49 PM CDT Sexual Orientation Straight 01/02/2021 12 :49 PM CDT documented as of this encounter Progress Notes * Cari Núñez, RIgorN. - 12/26/2023 10:00 AM CDT SUBJECTIVE Lisette Yuan is a 63 y.o. female presents to the office today for a preoperative visit in anticipation of left ADAM on 12/30/2023. Current status: Unchanged from last visit. The patient denies any acute changes to their health or new medical concerns. Denies open wounds, rashes, dental issues, or concerns for infection. SANIYA/TANVI: SANIYA Date: 12/26/2023. MEDICAL OPTIMIZATION Checklist - extreme obesity (BMI > 45kg/m2): yes/no: no - poorly controlled diabetes (HgA1c > 7.5%): yes/no: no - chronic anemia (Hgb < 11.0 g/dl): yes/no: no history of aplastic anemia - hypoalbuminemia (Albumin < 3.5 g/dl): yes/no: no - dental conditions requiring treatment: yes/no: no - active tobacco use: yes/no: no - open lower extremity wounds, cellulitis, paronychia: yes/no: no PAST MEDICAL HISTORY: History of: - VTE: No - Coagulopathy: No - DM: No - Immunosuppression: No - CAD: No - Stroke: No - CKD: No - Cancer: Yes, T-cell LGL leukemia - Current anticoagulation use: No - Narcotic use: No OBJECTIVE Pain: 7-8/10 with ambulation 4/10 at rest Preoperative Pain management: Tylenol/NSAID's: Celebrex as needed Additional Pain Medications: Currently using Tylenol as needed ASSESSMENT / PLAN Lisette Yuan is a 63 y.o. female plans to proceed with left ADAM on 12/30/2023. The patient is in the process of completing the preoperative evaluation, including preoperative medical clearance, laboratories, and appropriate imaging studies. Medications and allergies were re-reviewed. The patient was provided with chlorhexidine packets and instructed on the required preoperative washes. In addition, the patient was made aware of the NPO rules, signed the written informed consent, and was given the surgical listing card. Postoperative activity, restrictions including hip precautions, and pain management reviewed and discussed. Loly plans to dismiss to home the same day as surgery. Her daughter and her sister will provide assistance as needed when she returns home. All of her questions were answered and she is comfortable with the plan. She understands to contactthe service if any questions should arise. documented in this encounter Plan of Treatment Upcoming Encounters Date Type Department Care Team (Late st Contact Info) Description 03/31/2024 11:45 AM METAL FABRICATOR APPRENTICE Appointment Department of Radiology in [place], [place] [address] [place] [address] Luciano Shepherd M.D. [address] [place] [address] Scheduled Orders Name Type Priority Associated Diagnoses Orde r Schedule DX Hip And Pelvis Left 4+ Views Imaging RAD - Routine (most inpatients and all outpatients) Aftercare Total Hip Arthroplasty Arthroplasty Total Hip Replacement Status Post Left Expected: 03/31/2024, Expires: 03/26/2025 Scheduled Referrals Name Type Priority Associated Diagnoses Orde r Schedule Orthopedic Surgery Post Op (clinic) Outpatient Referral Routine Aftercare Total Hip Arthroplasty Arthroplasty Total Hip Replacement Status Post Left Expected: 03/31/2024, Expires: 03/26/2025 documented as of this encounter Visit Diagnoses Diagnosis Arthroplasty Total Hip Replacement Status Post Left- Primary Primary Osteoarthritis Hip Left Pain Hip Left Anemia Aplastic (HCC) Preanesthetic Medical Exam Aftercare Total Hip Arthroplasty documented in this encounter Care Teams Demand Generation Manager Relationship Specialty Start Date End Date Elsewhere, Pcp PCP - General Family Medicine 12/01/20 documented as of this encounter
--- OUTSIDE RECORDS SUMMARY | 2024-01-24 11:46 | XMS_ITS | Encounter Summary ---
Author Organization [facility] Address [address] [place] [address] Care Team Providers Care Disabilities Services Officer Name Role Phone Elsewhere, Pcp Primary Care Provider Unavailabl e Reason for Visit * Physical Therapy (Routine) - Closed Specialty Diagnoses / Procedures Referred By Blayne joseph Referred To Contact Diagnoses Primary Osteoarthritis Hip Left Procedures PT Evaluate and treat Mohit Stephenson M.D. [address] [place] [phone] [facility] Referral ID Status Reason Start Date Expiration Date Visits Re quested Visits Authorized [id number] Closed 10/23/2023 10/22/2024 1 1 Encounter Details Date Type Department Care Team (Latest Contact Info) Description 12/26/2023 11:00 AM CDT Comprehensive Visit Department of Physical Medicine and Rehabilitation in [place], [place] [address] [place] [phone] Mohit Stephenson M.D. [address] [place] [phone] Rossy Carlson SPT Primary Osteoarthritis Hip Left Social History Tobacco Use Types Packs/Day Years Used Date Smoking Tobacco: Never Smokeless Tobacco: Never Alcohol Use Standard Drinks/Week Comments Yes 4 (1 standard drink = 0.6 oz pur e alcohol) [facility] Utilities Answer Date Recorded In the past 12 months has th e electric, gas, oil, or water [employer] threatened to shut off services in your [...] living situation today? I have a [facility] place to live 10/18/2023 Sex and Gender Information Value Date Recorded Sex Assigned at Female 01/02/2021 12:49 PM CDT Gender Identity Female 01/02/2021 12:49 PM CDT Sexual Orientation Straight 01/02/2021 12 :49 PM CDT documented as of this encounter Consult Notes * Rossy Carlson, SPT - 12/26/2023 11:00 AM CDT Physical Therapy Musculoskeletal Outpatient Evaluation and Treatment SUBJECTIVE Patient's Name: Lisette OsullivanIgor Madanlacey Referring Provider: Mohit Stephenson M.D. Medical Diagnosis: 1. 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 History of Present Illness: left hip osteo arthritis Lisette Yuan is a 63 y.o. female who presents to outpatient physical therapy for lower extremity pre-operative gait aid assessment and instruction. Patient weight bearing restrictions: Weight bearing as tolerated Current level of function: independent with ambulation and activities of daily living without use of gait aid but tolerance limited due to orthopedic condition. Current assistive device: no devices Home environment: multiple level home multi-level, but the patient can remain on one level until they are comfortable with the stairs. Patient reports they are planning for the following assistance at time of discharge: home with adequate family or caregiver support Assistive devices patient owns: Front wheeled walker and Single point cane Bathroom Equipment: None Fall Assessment: Total Visit Count: 1 OBJECTIVE REVIEW OF SYSTEMS History obtained from chart review and the patient PHYSICAL EXAM Strength: normal throughout upper and lower extremities Balance with weight bearing restrictions: Good (maintains balance without support) Sit to stand transition: requires use of upper extremities TREATMENT Gait/mobility instruction: Patient was instructed in use of appropriate assistive device with weight bearing restrictions. Patient demonstrated the ability to transfer, ambulate, and negotiate stairs with maintaining weight bearing restrictions safely. Gait devices used in session: 2-wheeled walker The following exercises were instructed to be performed after surgery: - ankle pumps and quadriceps sets - seated long arc quadriceps Stair training: Patient completed 3 steps with unilateral railing. Gait device used: cane Assistance required stand by assistance for stairs. Curb training: Patient completed ascending/descending 2 curbs with front wheeled walker. Assistance required stand by assistance for stairs. Assessment Clinical Impression: Patient presents with functional limitations with impending weight bearing restrictions. Patient does demonstrate ability to follow post-operative precautions and restrictions safely. Recommended gait aid: 2-wheeled walker immediately after and transition to cane Patient has recommended assistive device at home and was instructed to bring with them to hospital on surgical date Anticipated/planned post-operative destination: home with adequate family or caregiver support -[facility] Inpatient Short Form: *this assessment is based on the patient's functional mobility with post- operative restrictions and/or protocol. -[facility] Basic Mobility (V.2) How much help [...] bed to a chair (including a wheelchair)?: A Little 4. Standing up from a chair using your arms (e.g., wheelchair, or bedside chair)?: A Little 5. To walk in hospital room?: A Little 6. Climbing 3-5 steps with a railing?: A Lot -[facility] Basic Mobility (V.2) Raw Score: 19 -[facility] Basic Mobility (V.2) Standardized Score: 42.48 Interpretation: Based on scoring guidelines using the raw score value: Those going to home had an average score at or above 18 Those going to facility had an average score at or below 17 Clinicians answer the [facility] Inpatient Short Form based on observed patient activity and/or clinical judgment (ie. patient can be scored without physically performing each activity) Comorbid Conditions: Arthritis Personal Factors: Age Clinical Presentation: Evolving Examination elements: 4+ Clinical Decision Making: Moderate complexity clinical decision making Clinical Decision Making Complexity: Moderate complexity clinical decision making Functional Goals and Timeframes: Patient will demonstrate ability to transfer, ambulate, and negotiate stairs with weight bearing restrictions using appropriate gait aid in one session to allow for safe transition to home. Plan Ms. Yuan was educated regarding evaluative findings, diagnosis, prognosis, potential risks and benefits of rehabilitation interventions. A collaborative effort was used to establish goals and plan of care. She was informed of her right to make decisions regarding her care, including refusal of examination or treatment or selection of services from another provider if desired. The treatment plan may be progressed or modified based upon her response to treatment. Physical Therapy Attestation Statement: Patient agrees with the plan of care and goals. Treatment Plan: Plan: Discontinue PT PT Plan Comments: Patient will continue with home exercise program independently Start of Plan of Care: 12/26/2023 Number of Visits: up to 1 visits PT Duration: up to 1 days Time Spent with Patient Evaluations PT Eval - Mod Complexity: 5 min Therapeutic Interventions Therapeutic Activity (min): 10 min Therapeutic Exercise (min): 8 min Time Tracking Total Timed Units (min): 18 min Total Treatment Time (min): 23 min BELKYS Rosales Associated attestation - Tati Castaneda P.T., D.P.T. - 12/26/2023 1:42 PM CDT This therapist has reviewed all documentation and supervised today's session. This therapist agreeswith the plan of care developed in collaboration with the patient. documented in this encounter Plan of Treatment Upcoming Encounters Date Type Department Care Team (Late st Contact Info) Description 03/31/2024 11:45 AM HAND SINGER Appointment Department of Radiology in [place], [place] [address] [place] [phone] Luciano Shepherd M.D. [address] [place] [phone] documented as of this encounter Visit Diagnoses Diagnosis Primary Osteoarthritis Hip Left documented in this encounter Care Teams Disabilities Services Officer Relationship Specialty Start Date End Date Elsewhere, Pcp PCP - General Family Medicine 12/01/20 documented as of this encounter
--- OUTSIDE RECORDS SUMMARY | 2024-01-24 11:46 | XMS_ITS | Encounter Summary ---
Author Organization [facility] Address [address] [place] [phone] Care Team Providers Care Container Shop Welder Name Role Phone Elsewhere, Pcp Primary Care Provider Unavailabl e Reason for Referral * Outpatient (Routine) - Closed Specialty Diagnoses / Procedures Referred By Contac t Referred To Contact Diagnoses Allergy Antibiotic Personal History Procedures Penicillin Skin Test Luciano Shepherd M.D. [address] [place] [phone] [facility] Referral ID Status Reason Start Date Expiration Date Visits Re quested Visits Authorized [id number] Closed 10/24/2023 10/23/2024 1 1 * Outpatient (Routine) - Closed Specialty Diagnoses / Procedures Referred By Contac t Referred To Contact Allergy and Immunology Diagnoses Allergy Antibiotic Personal History Luciano Shepherd M.D. [address] [place] [phone] [facility] Referral ID Status Reason Start Date Expiration Date Visits Re quested Visits Authorized [id number] Closed 10/24/2023 04/24/2025 1 1 * Outpatient (Routine) - Closed Specialty Diagnoses / Procedures Referred By Contac t Referred To Contact Anesthesiology Diagnoses Primary Osteoarthritis Hip Left Pain Hip Left Anemia Aplastic (HCC) Preanesthetic Medical Exam Luciano Shepherd M.D. [address] [place] [phone] [facility] Referral ID Status Reason Start Date Expiration Date Visits Re quested Visits Authorized [id number] Closed 10/24/2023 04/24/2025 1 1 * Outpatient (Routine) - Closed Specialty Diagnoses / Procedures Referred By Blayne joseph Referred To Contact Orthopedic Surgery Diagnoses Primary Osteoarthritis Hip Left Pain Hip Left Anemia Aplastic (HCC) Preanesthetic Medical Exam Luciano Shepherd M.D. [address] [place] [phone] Luciano Shepherd M.D. [address] [place] [phone] Referral ID Status Reason Start Date Expiration Date Visits Re quested Visits Authorized [id number] Closed 10/24/2023 04/24/2025 1 1 Scheduling Instructions Or she could be put on Stacey Núñez RN calendar on 12/27/2023 Encounter Details Date Type Department Care Team (Late st Contact Info) Description 10/24/2023 Orders Only Department of Orthopedic Surgery in [place], [place] [address] [place] [phone] Cari Núñez R.N. [address] [place] [phone] Allergy Antibiotic Personal History (Primary Dx); Primary Osteoarthritis Hip Left; Pain Hip Left; Anemia Aplastic (HCC); Preanesthetic Medical Exam Social History Tobacco Use Types Packs/Day Years Used Date Smoking Tobacco: Never Smokeless Tobacco: Never [facility] Utilities Answer Date Recorded In the past 12 months has [facility] electric, gas, oil, or water company [...] st Contact Info) Description 03/31/2024 11:45 AM HOME ENERGY AUDITOR Appointment Department of Radiology in [place], [place] [address] [place] [phone] Luciano Shepherd M.D. [address] [place] [address] Scheduled Referrals Name Type Priority Associated Diagnoses [...] Expires: 01/23/2025 documented as of this encounter Results * Penicillin Skin Test (12/26/2023 1:15 PM CDT) Narrative [facility] - 12/26/2023 1:15 PM CDT Katie Borjas R.N. ? 12/26/2023 ??2:10 PM Penicillin and other antibiotic skin test ?? Flowsheet Row Clinical Support from 12/26/2023 in Division of Allergic Diseases in [place], [place] Penicillin and other antibiotics (Prick) ?? [...] M.D. PROCEDURE/MINOR MARK GICAL ORDERABLES [facility]AL NA documented in this encounter Visit Diagnoses Diagnosis Allergy Antibiotic Personal History- Primary Primary Osteoarthritis Hip Left Pain Hip Left Anemia Aplastic (HCC) Preanesthetic Medical Exam Allergy Antibiotic Personal History documented in this encounter Care Teams Container Shop Welder Relationship Specialty Start Date End Date Elsewhere, Pcp PCP - General Family Medicine 12/01/20 documented as of this encounter
--- OUTSIDE RECORDS SUMMARY | 2024-01-24 11:46 | XMS_ITS | Encounter Summary ---
Author Organization [facility] Address [address] [place] [address] Care Team Providers Care Machine Pecan Picker Name Role Phone Elsewhere, Pcp Primary Care Provider Unavailabl e Reason for Visit * Reason Comments Patient Education Encounter Details Date Type Department Care Team (Latest Contact Info) Description 12/11/2023 3:00 PM CDT Telemedicine Department of Patient Education in [place], [place] [address] [place] [phone] Mohit Stephenson M.D. [address] [place] [phone] Primary Osteoarthritis Hip Left Social History Tobacco Use Types Packs/Day Years Used Date Smoking Tobacco: Never Smokeless Tobacco: Never [facility] Utilities Answer Date Recorded In the past 12 months has [facility] [employer], gas, oil, or water [employer] threatened to shut off services in your [...] your living situation today? I have a [facility] place to live 10/18/2023 Sex and Gender Information Value Date Recorded Sex Assigned at Female 01/02/2021 12:49 PM CDT Gender Identity Female 01/02/2021 12:49 PM CDT Sexual Orientation Straight 01/02/2021 12 :49 PM CDT documented as of this encounter Plan of Treatment Upcoming Encounters Date Type Department Care Team (Late st Contact Info) Description 03/31/2024 11:45 AM CLINICAL PROJECT LEADER Appointment Department of Radiology in [place], [place] [address] [place] [phone] Luciano Shepherd M.D. [address] [place] [phone] documented as of this encounter Visit Diagnoses Diagnosis Primary Osteoarthritis Hip Left documented in this encounter Care Teams Machine Pecan Picker Relationship Specialty Start Date End Date Elsewhere, Pcp PCP - General Family Medicine 12/01/20 documented as of this encounter
--- OUTSIDE RECORDS SUMMARY | 2024-01-24 11:46 | XMS_ITS | Encounter Summary ---
Author Organization [facility] Address [address] [place] [phone] Care Team Providers Care Co Teacher Name Role Phone Elsewhere, Pcp Primary Care Provider Unavailabl e Encounter Details Date Type Department Care Team (Late st Contact Info) Description 12/13/2023 Orders Only Department of Orthopedic Surgery in [place], [place] [address] [place] [phone] Cari Núñez R.N. [address] [place] [phone] Primary Osteoarthritis Hip Left (Primary Dx); Pain Hip Left Social History Tobacco Use Types Packs/Day Years Used Date Smoking Tobacco: Never Smokeless Tobacco: Never [facility] Utilities Answer Date Recorded In the past 12 months has [facility] [employer], gas, oil, or water [employer] threatened to shut off services in your [...] your living situation today? I have a [facility] place to live 10/18/2023 Sex and Gender Information Value Date Recorded Sex Assigned at Female 01/02/2021 12:49 PM CDT Gender Identity Female 01/02/2021 12:49 PM CDT Sexual Orientation Straight 01/02/2021 12 :49 PM CDT documented as of this encounter Plan of Treatment Upcoming Encounters Date Type Department Care Team (Late st Contact Info) Description 03/31/2024 11:45 AM PRODUCT DEVELOPMENT INTERN Appointment Department of Radiology in [place], [place] [address] [place] [address] Luciano Shepherd M.D. [address] [place] [phone] documented as of this encounter Visit Diagnoses Diagnosis Primary Osteoarthritis Hip Left- Primary Pain Hip Left documented in this encounter Care Teams Co Teacher Relationship Specialty Start Date End Date Elsewhere, Pcp PCP - General Family Medicine 12/01/20 documented as of this encounter
--- OUTSIDE RECORDS SUMMARY | 2024-01-24 11:46 | XMS_ITS | Encounter Summary ---
Author Organization [facility] Address [address] [place] [address] Care Team Providers Care Licensed Nursing Assistant Name Role Phone Elsewhere, Pcp Primary Care Provider Unavailabl e Reason for Referral * Outpatient (Routine) - Closed Specialty Diagnoses / Procedures Referred By Victorianoac t Referred To Contact Diagnoses Pain Hip Left Procedures DX Hip And Pelvis Left 2-3 Views Luciano Shepherd M.D. 200 [place] [address] [facility] Referral ID Status Reason Start Date Expiration Date Visits Re quested Visits Authorized [id number] Closed 09/30/2023 09/29/2024 1 1 Reason for Visit * Outpatient (Routine) - Closed Specialty Diagnoses / Procedures Referred By Blayne joseph Referred To Contact Diagnoses Pain Hip Left Procedures DX Hip And Pelvis Left 2-3 Views Luciano Shepherd M.D. 200 [place] [address] [facility] Referral ID Status Reason Start Date Expiration Date Visits Re quested Visits Authorized [id number] Closed 09/30/2023 09/29/2024 1 1 Encounter Details Date Type Department Care Team (Latest Contact Info) Description 10/23/2023 10:26 AM CDT - 10/23/2023 11:59 PM CDT Hospital Encounter Department of Radiology, [facility], in [place], [place] [address] [place] [address] Luciano Shepherd M.D. [address] [place] [address] Pain Hip Left Discharge Disposition: Home or Self Care Social History Tobacco Use Types Packs/Day Years Used Date Smoking Tobacco: Never Smokeless Tobacco: Never [facility] Utilities Answer Date Recorded In the past 12 months has th e [employer], gas, oil, or water [employer] threatened to shut off services in your [...] your living situation today? I have a [facility] place to live 10/18/2023 Sex [...] doses Indications: Acute Pain. 12 tablet 12/30/2023 alendronate (Fosamax) 35 mg tablet Take 35 mg by mouth daily. 08/27/2023 12/26/2023 CeleBREX 200 mg capsule Take 200 mg by mouth as needed. 08/14/2023 12/30/2023 cholecalciferol (cholecalciferol) 1,000 Unit tablet Take 1 tablet by mouth daily. 10/26/2010 12/26/2023 valACYclovir (Valtrex) 1000 mg tablet Take 1,000 mg by mouth as needed. 01/03/2009 12/26/2023 documented as of this encounter Plan of Treatment Upcoming Encounters Date Type Department Care Team (Late st Contact Info) Description 03/31/2024 11:45 AM FREIGHT FORWARDER Appointment Department of Radiology in [place], [place] [address] [place] [address] Luciano Shepherd M.D. [address] [place] [phone] documented as of this encounter Procedures Procedure [...] encounter Visit Diagnoses Diagnosis Pain Hip Left documented in this encounter Care Teams Licensed Nursing Assistant Relationship Specialty Start Date End Date Elsewhere, Pcp PCP - General Family Medicine 12/01/20 documented as of this encounter
--- OUTSIDE RECORDS SUMMARY | 2024-01-24 11:46 | XMS_ITS | Encounter Summary ---
Author Organization [facility] Address [address] [place] [address] Care Team Providers Care Credit Reporter Name Role Phone Elsewhere, Pcp Primary Care Provider Unavailabl e Reason for Visit * Outpatient (Routine) - Closed Specialty Diagnoses / Procedures Referred By Blayne joseph Referred To Contact Allergy and Immunology Diagnoses Allergy Antibiotic Personal History Luciano Shepherd M.D. [address] [place] [phone] [facility] Referral ID Status Reason Start Date Expiration Date Visits Re quested Visits Authorized [id number] Closed 10/24/2023 04/24/2025 1 1 Encounter Details Date Type Department Care Team (Latest Contact Info) Description 12/26/2023 2:00 PM CDT Comprehensive Visit Division of Allergic Diseases in [place], [place] [address] [place] [phone] Kailey Li P.A.-C., M.S. [address] [place] [phone] Allergy Antibiotic Personal History (Primary Dx) Social History Tobacco Use Types Packs/Day Years Used Date Smoking Tobacco: Never Smokeless Tobacco: Never Alcohol Use Standard Drinks/Week Comments Yes 4 (1 standard drink = 0.6 oz pur e alcohol) [facility] Utilities Answer Date Recorded In the past 12 months has e [employer], gas, oil, or water [employer] threatened to shut off services in your [...] your living situation today? I have a [facility] place to live 10/18/2023 Sex and Gender Information Value Date Recorded Sex Assigned at Female 01/02/2021 12:49 PM CDT Gender Identity Female 01/02/2021 12:49 PM CDT Sexual Orientation Straight 01/02/2021 12 :49 PM CDT documented as of this encounter Consult Notes * Kailey Li P.A.-C., M.S. - 12/26/2023 2:00 PM CDT Images from the original note were not included. Chief complaint: Personal history of cephalosporin allergy Supervised by: Referring provider: Luciano Shepherd M.D. [address] [place] [phone] SUBJECTIVE HPI: #1 Personal history of cephalosporin allergy Lisette Yuan is a 63 y.o. year old female, presenting today for evaluation and management of a past history of a reaction to a cephalosporin antibiotic. she reports that about 10 years ago she was given an injection of ceftriaxone for treatment of pneumonia. She was in her provider's office at the time. About 20 minutes after the injection she developed an onset of itchiness in her throat. She thinks that almost immediately she was given a Benadryl injection, and had good improvement in symptoms. She denies that at any point she had any difficulty with her breathing, rash, other swelling, GI symptoms, and/or dizziness. There was no associated peeling skin, blistering skin, mucosal sores, fever, and/or joint pain/swelling. She reports that her provider noted she was not certain that the symptoms were sales representative aircraft of an allergic reaction, but because of her medical frailty at the timeshe chose to air on the side of caution with treatment. Mrs. Yuan has avoided use of cephalosporins since that time. She is not aware of having taken any penicillins either. On review of her electronic medical record, it appears she has been prescribed azithromycin, Bactrim, levofloxacin, and vancomycin without any documentation of adverse events. ROS: See history of present illness She denies any history of asthma, allergic rhinitis, and/or eczema. Allergies Allergen Reactions Ceftriaxone Edema, suggestive of allergic reaction, i.e., lip, tongue, or throat swelling Itching/tightening inside throat Penicillin allergy testing is negative on 12/26/23. May use penicillins. Avoid cephalosporins. See allergy note 12/26/23 for cefazolin option with surgery. OBJECTIVE Physical exam: General: 63 y.o. female who appears her stated age Mental: Alert and oriented in all spheres; in no acute distress Skin: Negative skin test to penicillin, ampicillin, and cefazolin Penicillin and other antibiotic skin test Flowsheet Row Clinical Support from 12/26/2023 in Division of Allergic Diseases in [place], [place] Penicillin and other antibiotics (Prick) Histamine 6mg/ml prick 6x6 Wheal, 20x20 Flare Diluent without preservative (Prick) 0 Benzylpencilloyl (PrePen) (Major determinant) 0 New Mix Penicillin G (Prick) 0 Alkaline Hydrolysis (Prick) (Minor determinant) 0 Ampicillin ordered? Yes Ampicillin (Prick) 0 Cefazolin ordered? Yes Cefazolin (Prick) 0 [330 mg/ml Prick] Penicillin and other antibiotics (ID) Diluent without preservative (ID) 0 Benzylpencilloyl (PrePen) (ID) (Major determinant) 0 New Mix Penicillin G (ID) 0 Alkaline Hydrolysis (ID) (Minor determinant) 0 Ampicillin (ID) 0 Cefazolin (ID) 0 [3.3 mg/ml ID] Cefazolin (ID) 0 [33 mg/ml ID] ASSESSMENT / PLAN Impression/Report/Plan #1 Personal history of cephalosporin allergy Penicillin skin test interpretations: Lisette Yuan's penicillin skin test to the major and minor determinants was negative. The skin test to ampicillin and cefazolin were negative, but it was reviewed that the predictive values of the ampicillin and cefazolin skin tests are not well established and likely lower than that of penicillin skin testing. With negative penicillin, ampicillin, and cefazolin allergy testing, the risk for developing an IgE mediated reaction with use of penicillins is considered to be similar to that of thegeneral population. It is noted that there is always a small risk for a drug reaction and that our penicillin, ampicillin, and cefazolin skin tests do not predict for non-IgE mediated adverse reactions to penicillins. Discussions: Results of penicillin, ampicillin, and cefazolin allergy testing were reviewed in detail today withLisette Yuan. We discussed the interpretation and limitations of the skin testing. We reviewed that penicillin and cephalosporin antibiotics have a pharmacologic/structural relationship. Lisette Yuan's medical record and personally provided history do indicate a history of an adverse reaction to cephalosporin antibiotics. We reviewed that there may be cross-reactivity between penicillin and cephalosporin antibiotics that could place an individual at increased risk for having an allergic reaction to one group if an allergy to the other exists. We reviewed that with a historyof a reaction to a cephalosporin, Lisette Yuan would have been considered at increased risk for a reaction to some or all cephalosporins as well as penicillins. With a negative penicillin, ampicillin, and cefazolin allergy skin test panel, it is felt that use of penicillins in the future would bereasonable with an estimated risk of having an IgE mediated type 1 hypersensitivity reaction being around 3-5%. We discussed the role of an oral challenge to a penicillin antibiotic after negative penicillin allergy testing is demonstrated. We discussed the factors to consider in the decision to proceed with or defer an oral challenge. These would include consideration of the features of the previous reaction to penicillin, other known drug allergies, presence of co-morbidities such as asthma, time passed from the original reaction to penicillin, and the clinical need for penicillin currently and in the future. We, also, discussed the risks, benefits, and alternatives to doing an oral challenge to a penicillin. We reviewed that when a person has had a previous reaction to a cephalosporin antibiotic, there is no testing with adequate predictive value to account for future reactions. For this reason, Lisette Flanagan should generally continue to avoid use of cephalosporins. Should she be in a situation where a cephalosporin as indicated without a reasonable alternative, use via a graded challenge or desensitization could be considered with it being noted that there would be some risk for a drug reaction ranging in severity from mild to life-threatening. As different cephalosporins might carry a different potential risk to Lisette Yuan based on drug structure, challenges or desensitizations should bereviewed with allergy medicine before proceeding. Lisette Yuan's specific clinical situation was reviewed. We discussed the implications of negative penicillin, ampicillin, and cefazolin skin tests regarding current and future use of both penicillin and cephalosporin antibiotics. We reviewed that there is a clinical indication for bacterial proph ylaxis with most surgical procedures. We reviewed the role that having a negative penicillin skin test plays in preparing an individual for an upcoming surgery. We discussed the implications of negative penicillin, ampicillin, and cefazolin skin tests upon future use of cephalosporins and how this plays a role in decreasing surgical infections. In the following study, (Margaret KG?? et al. ClinInfect Dis(3):329-336), cefazolin use demonstrated fewer prosthetic joint infections when compared to use of a non-cefazolin antibiotic in perioperative antibiotic regimens. In regards to surgery, if the surgical team felt that cefazolin was the only antibiotic that would adequately cover the upcoming surgery, consideration could be given to administering Cefazolin as a 10/90% graded dose challenge as outlined below: - Administer the first dose at 1/10 of the final dose - Observe for 30 minutes - Administer the next dose at 9/10 of the final dose - No premedications recommended - Vitals should be obtained before and after each dose - There should be a 1:1 nursing available throughout the challenge. - IM epinephrine should be available at the bedside to treat anaphylaxis. If the challenge is tolerated, Lisette Yuan could receive subsequent doses of cefazolin without any increased risk of reaction compared to the general population. We note that tolerance of a gradedchallenge does not predict delayed reactions such as serum sickness, drug fever, and delayed rashessuch as SJS/TEN. If she is not comfortable receiving a cephalosporin antibiotic, then alternative antibiotics (vancomycin, clindamycin, etc) could be utilized, though it was discussed that use of alternative antibiotics in patients with a history penicillin allergy has been associated with more total hospital days and more C difficile, MRSA, and VRE infections than expected compared with control subjects (Cherri Bingham?? et al. J Allergy Clin Immunol4;133(3):790-796). After an extensive and robust discussion with all questions answered regarding future use of penicillins, future use of cephalosporins, and proceeding with or deferring a challenge or desensitizationto a penicillin or cephalosporin, Lisette Yuan agreed with the plan documented below. Recommendations: Regarding the oral challenge to penicillins, this will be deferred. Regarding an IV challenge or desensitization to cefazolin, Lisette Yuan will discuss what is safest while providing her the best chance for a good surgical outcome with her surgical team. The risksverses benefits of either choice will be discussed with her surgical team. Together Lisette Yuan and her surgical team will decide how to proceed. If a cephalosporin were needed outside of surgery without a reasonable alternative, allergy could be reconsulted to discuss a graded challenge or desensitization dependant upon which cephalosporin were indicated. Generally, she may use penicillins, but should avoid cephalosporins. I discussed the recommendations and answered all the questions to the best of my ability and Lisette Yuan expressed understanding and agreement with our plan without further questions. I personally spent over 20 minutes face to face, which does not include the time spent on the review of record, documentation and/or actual procedure, with Lisette Yuan in counseling and discussionand/or coordination of care as described above. Patient Education Ready to learn, no apparent learning barriers were identified; learning preferences include listening. Explained diagnosis and treatment plan; patient expressed understanding of the content. documented in this encounter Plan of Treatment Upcoming Encounters Date Type Department Care Team (Late st Contact Info) Description 03/31/2024 11:45 AM SUPERVISOR COKE HANDLING Appointment Department of Radiology in [place], [place] [address] [place] [address] Luciano Shepherd M.D. [address] [place] [address] documented as of this encounter Visit Diagnoses Diagnosis Allergy Antibiotic Personal History- Primary documented in this encounter Care Teams Credit Reporter Relationship Specialty Start Date End Date Elsewhere, Pcp PCP - General Family Medicine 12/01/20 documented as of this encounter
--- OUTSIDE RECORDS SUMMARY | 2024-01-24 11:46 | XMS_ITS | Clinical Summary ---
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, on methotrexate and prednisone Encounters Date Type Department Care Team Description 11/07/2023 Refill [facility] [address] [place] [address] Bijan Tidwell MD Refill Request (Celecoxib) from Last 3 Months Immunizations Name Administration [...] for age 45-75 2006 COVID-19 vaccine series ( season) 2023 07/18/2021, 12/01/2020, 07/21/2020, Additional history exists Influenza for age 50-64 12/15/2023 02/25/2008, 03/12 BMI (ht and wt on same day) for age 18+ 08/13/2024 08/14/2023 Colonoscopy through age 75 01/03/2030 01/04/2020, Procedures Procedure Name Priority Date/Time Associated Diagnosis Comments COLONOSCOPY SCREENING Routine 01/04/2020 12:00 AM CDT Encounter for screening colonoscopy from Last 3 Months or Most Recently Relevant to Health Maintenance Results * COLONOSCOPY SCREENING (01/04/2020 12:00 AM CDT) Tano Varela MD GI PROCEDURE ORD from Last 3 Months or Most Recently Relevant to Health Maintenance Care Teams Glaze Wiper Relationship Specialty Start Date End Date Darby Bajwa MD PCP - General 01/31/09
--- OUTSIDE RECORDS SUMMARY | 2024-01-24 11:46 | XMS_ITS | Encounter Summary ---
Author Organization [facility] Address [address] [place] [address] Care Team Providers Care Arts Manager Name Role Phone Elsewhere, Pcp Primary Care Provider Unavailabl e Encounter Details Date Type Department Care Team (Late st Contact Info) Description 10/23/2023 11:00 AM CDT Ancillary Procedure Department of Orthopedic Surgery Social History Tobacco Use Types Packs/Day Years Used Date Smoking Tobacco: Never Smokeless Tobacco: Never [facility] Utilities Answer Date Recorded In the [...] Date Recorded Dental: Regular Dentist Yes 10/18/19 24 Employment Answer Date Recorded Employment status Employed and actively working without restrictions 10/18/2023 Housing Stability Answer Date Recorded What is your living situation today? I have a [facility] place to live 10/18/2023 Sex and Gender Information Value Date Recorded Sex Assigned at Female 01/02/2021 12:49 PM CDT Gender Identity Female 01/02/2021 12:49 PM CDT Sexual Orientation Straight 01/02/2021 12 :49 PM CDT documented as of this encounter Plan of Treatment Upcoming Encounters Date Type Department Care Team (Late st Contact Info) Description 03/31/2024 11:45 AM LANDSCAPE GARDENER Appointment Department of Radiology in [place], [place] [address] [place] [address] Luciano Shepherd M.D. [address] [place] [address] documented as of this encounter Procedures Procedure [...] on filedocumented in this encounter Care Teams Arts Manager Relationship Specialty Start Date End Date Elsewhere, Pcp PCP - General Family Medicine 12/01/20 documented as of this encounter
--- OUTSIDE RECORDS SUMMARY | 2024-01-24 11:46 | XMS_ITS | Encounter Summary ---
Author Organization [facility] Address [address] [place] [address] Care Team Providers Care Cook Frozen Dessert Name Role Phone Elsewhere, Pcp Primary Care Provider Unavailabl e Reason for Visit * Reason Onset Date Comments Document needed from Pre-cert 11/20/2023 Encounter Details Date Type Department Care Team (Latest Contact Info) Description 11/20/2023 Clinical Communication Department of Orthopedic Surgery in [place], [place] [address] [place] [phone] Luciano Shepherd M.D. [address] [place] [phone] Document needed from Pre-cert Social History Tobacco Use Types Packs/Day Years Used Date Smoking Tobacco: Never Smokeless Tobacco: Never [facility] Utilities Answer Date Recorded In the past 12 months has [employer], gas, oil, or water [employer] threatened to shut off services in your [...] your living situation today? I have a [facility] place to live 10/18/2023 Sex and Gender Information Value Date Recorded Sex Assigned at Female 01/02/2021 12:49 PM CDT Gender Identity Female 01/02/2021 12:49 PM CDT Sexual Orientation Straight 01/02/2021 12 :49 PM CDT documented as of this encounter Plan of Treatment Upcoming Encounters Date Type Department Care Team (Late st Contact Info) Description 03/31/2024 11:45 AM STRINGED INSTRUMENT REPAIRER Appointment Department of Radiology in [place], [place] [address] [place] [address] Luciano Shepherd M.D. [address] [place] [address] documented as of this encounter Visit Diagnoses Not on filedocumented in this encounter Care Teams Cook Frozen Dessert Relationship Specialty Start Date End Date Elsewhere, Pcp PCP - General Family Medicine 12/01/20 documented as of this encounter
--- OUTSIDE RECORDS SUMMARY | 2024-01-24 11:46 | XMS_ITS | Encounter Summary ---
Author Organization [facility] Address [address] [place] [address] Care Team Providers Care Pocket Machine Operator Name Role Phone Elsewhere, Pcp Primary Care Provider Unavailabl e Reason for Visit * Reason Onset Date Comments Phone Contact 10/21/2023 Encounter Details Date Type Department Care Team (Late st Contact Info) Description 10/21/2023 Clinical Communication Department of Orthopedic Surgery in [place], [place] [address] [place] [phone] Luciano Shepherd M.D. [address] [place] [phone] Phone Contact Social History Tobacco Use Types Packs/Day Years Used Date Smoking Tobacco: Never Smokeless Tobacco: Never [facility] Utilities Answer Date Recorded In the past 12 months has [employer], gas, oil, or water [email or web address] threatened to shut off services in your [...] your living situation today? I have a [facility] place to live 10/18/2023 Sex and Gender Information Value Date Recorded Sex Assigned at Female 01/02/2021 12:49 PM CDT Gender Identity Female 01/02/2021 12:49 PM CDT Sexual Orientation Straight 01/02/2021 12 :49 PM CDT documented as of this encounter Plan of Treatment Upcoming Encounters Date Type Department Care Team (Late st Contact Info) Description 03/31/2024 11:45 AM DISTANCE EDUCATION DIRECTOR Appointment Department of Radiology in [place], [place] [address] [place] [address] Luciano Shepherd M.D. [address] [place] [address] documented as of this encounter Visit Diagnoses Not on filedocumented in this encounter Care Teams Pocket Machine Operator Relationship Specialty Start Date End Date Elsewhere, Pcp PCP - General Family Medicine 12/01/20 documented as of this encounter
--- OUTSIDE RECORDS SUMMARY | 2024-01-24 11:46 | XMS_ITS | Encounter Summary ---
Author Organization [facility] Address [address] [place] [address] Care Team Providers Care Risk Analyst Name Role Phone Elsewhere, Pcp Primary Care Provider Unavailabl e Encounter Details Date Type Department Care Team (Latest Contact Info) Description 12/25/2023 10:19 AM CDT - 12/25/2023 11:59 PM CDT Hospital Encounter Department of Laboratory Medicine in [address] [phone] Luciano Shepherd M.D. [address] [place] [phone] Primary Osteoarthritis Hip Left Discharge Disposition: Home or Self Care Social History Tobacco Use Types Packs/Day Years Used Date Smoking Tobacco: Never Smokeless Tobacco: Never [facility] Utilities Answer Date Recorded In the past 12 months has e [employer], gas, oil, or water [employer] threatened to shut off services in your [...] your living situation today? I have a [facility] place to live 10/18/2023 Sex and [...] st Contact Info) Description 03/31/2024 11:45 AM DANCE ARTIST Appointment Department of Radiology in [place], [place] [address] [place] [address] Luciano Shepherd M.D. [address] [place] [address] documented as of this encounter Procedures Procedure Name Priority Date/Time Associated Diagnosis Comments CBC WITH DIFFERENTIAL, B Routine 12/25/2023 10:23 AM CDT Primary Osteoarthritis Hip Left BASIC METABOLIC PANEL, S/P Routine 12/25/2023 10:23 AM CDT Primary Osteoarthritis Hip Left documented in this encounter Results * (ABNORMAL) CBC with Differential, Blood (12/25/2023 10:23 AM CDT) Hemoglobin 12.6 11.6 - 15.0 g/dL 12/25/2023 [...] M.D. LAB BLOOD ADD-ON Performing Organization Address City/State/[facility] Co de Phone Number [facility] [address] [place] [address], [facility] [place] [address] * (ABNORMAL) Basic Metabolic Panel (12/25/2023 10:23 [...] CDT Luciano Shepherd M.D. LAB BLOOD ADD-ON [facility] [address] [place] [address], [facility] in [address] [address] documented in this encounter Visit Diagnoses Diagnosis Primary Osteoarthritis Hip Left documented in this encounter Care Teams Risk Analyst Relationship Specialty Start Date End Date Elsewhere, Pcp PCP - General Family Medicine 12/01/20 documented as of this encounter
--- OUTSIDE RECORDS SUMMARY | 2024-01-24 11:46 | XMS_ITS | Encounter Summary ---
Author Organization [facility] Address [address] [place] [address] Care Team Providers Care Sap Trainer Name Role Phone Elsewhere, Pcp Primary Care Provider Unavailabl e Reason for Visit * Outpatient (Routine) - Closed Specialty Diagnoses / Procedures Referred By Blayne joseph Referred To Contact Allergy and Immunology Diagnoses Allergy Drug Personal History Procedures Allergy and Immunology - Single drug allergy eConsult Carroll Biggs M.B.B.S., Ph.D. [address] [place] [phone] [facility] Referral ID Status Reason Start Date Expiration Date Visits Re quested Visits Authorized [id number] Closed 12/24/2023 12/23/2024 1 1 Encounter Details Date Type Department Care Team (Latest Contact Info) Description 12/26/2023 8:00 AM CDT Internal E-Consult Division of Allergic Diseases in [place], [place] [address] [place] [phone] Kailey Li P.A.-C., M.S. [address] [place] [phone] Allergy Drug Personal History (Primary Dx) Social History Tobacco Use Types Packs/Day Years Used Date Smoking Tobacco: Never Smokeless Tobacco: Never Alcohol Use Standard Drinks/Week Comments Yes 4 (1 standard drink = 0.6 oz pur e alcohol) [facility] Utilities Answer Date Recorded In the past 12 months has th e [employer], gas, oil, or water company threatened to [...] * Kailey Li P.A.-C., M.S. - 12/26/2023 8:00 AM CDT SUBJECTIVE Ordering Physician: Carlos MuñozBIgorS., Ph.D. The patient was not personally interviewed or examined. The history and examination findings are based on the clinical documentation provided and/or discussed with a physician or provider who had personally interviewed and examined the patient. Time spent: Five minutes or more of medical review. Chief Complaint / Reason for Visit A consult was placed regarding Lisette Yuan, a 63 y.o. female. Clinical question to be answered: Patient has ceftriaxone allergy with anaphylaxis listed as the reaction. Cefazolin skin test has been ordered. Hi Kailey Li PA-C, I am looking up the N skin tests for 12/26/23. Patient has ceftriaxone allergy with anaphylaxis reaction listed as an allergy. Cefazolin skin testing has been ordered. , Please review and place orders as needed. If no additional orders are recommended, respond back to the RST LOLA URBINA jack spooler tender with how you would like to handle this patient., Thank you, , KRISTEN Delvalle History of Present Illness #1 Personal history of ceftriaxone allergy Mrs. Yuan is a 63 yr adult who is scheduled to undergo hip surgery on December 30, 2023. Her surgical team would like to be able to use cefazolin for antimicrobial prophylaxis if possible. Penicillin and cefazolin allergy testing orders are in place. Nursing request that appropriateness of ordersbe reviewed. On review of Mrs. Yuan's chart, it appears that she has had a previous reaction to ceftriaxone. Both ???anaphylaxis?? and ???itchy/tight throat?? are noted as reactions. The exact episode of reaction cannot be found by this provider in the chart, but it appears likely that the episode occurred in 2009 based upon the first noting of it in the allergy module. This provider is unable to identify u se of any other cephalosporins or penicillin since that time. Antibiotics it appears she has been prescribed without documentation of adverse event include Bactrim, levofloxacin, and vancomycin. ASSESSMENT / PLAN #1 Personal history of ceftriaxone allergy After review of the EMR, it does appear appropriate to proceed with both penicillin and cefazolin allergy testing. Orders are already in place. Should initial nursing interview identify any further history of concern, I am happy to see the patient for a formal pre-consultation before testing. documented in this encounter Plan of Treatment Upcoming Encounters Date Type Department Care Team (Late st Contact Info) Description 03/31/2024 11:45 AM METALLURGICAL LABORATORY ASSISTANT Appointment Department of Radiology in [place], [place] [address] [place] [address] Luciano Shepherd M.D. [address] [place] [address] documented as of this encounter Visit Diagnoses Diagnosis Allergy Drug Personal History- Primary documented in this encounter Care Teams Sap Trainer Relationship Specialty Start Date End Date Elsewhere, Pcp PCP - General Family Medicine 12/01/20 documented as of this encounter
--- OUTSIDE RECORDS SUMMARY | 2024-01-24 11:46 | XMS_ITS | Encounter Summary ---
Author Organization [facility] Address [address] [place] [address] Care Team Providers Care Adaptive Physical Education Teacher Name Role Phone Elsewhere, Pcp Primary Care Provider Unavailabl e Reason for Visit * Outpatient (Routine) - Closed Specialty Diagnoses / Procedures Referred By Blayne joseph Referred To Contact Anesthesiology Diagnoses Primary Osteoarthritis Hip Left Pain Hip Left Anemia Aplastic (HCC) Preanesthetic Medical Exam Luciano Shepherd M.D. [address] [place] [phone] [facility] Referral ID Status Reason Start Date Expiration Date Visits Re quested Visits Authorized [id number] Closed 10/24/2023 04/24/2025 1 1 Encounter Details Date Type Department Care Team (Latest Contact Info) Description 12/26/2023 3:00 PM CDT Comprehensive Visit Preoperative Evaluation Center in [place], [place] [address] [place] [phone] Luciano Shepherd M.D. [address] [place] [phone] Salvador Leonard, JENNIFER, C.N.P., M.S. [address] [place] [phone] Preanesthetic Medical Exam (Primary Dx); Primary Osteoarthritis Hip Left; Pain Hip Left; Allergy Antibiotic Personal History; Hyperlipidemia; Chronic Kidney Disease (CKD), Stage 3a Glomerular Filtration Rate (GFR) 45 To 59 ([facility]); Hypothyroidism; Obstructive Sleep Apnea Adult; Anemia Aplastic (HCC); Obesity Body Mass Index 30-39.9 Adult; Leukemia Lymphocytic Chronic In Relapse ([facility]) Social History Tobacco Use Types Packs/Day Years Used Date Smoking Tobacco: Never Smokeless Tobacco: Never Tobacco Cessation:Counseling Given: Not Answered Alcohol Use Standard Drinks/Week Comments Yes 4 (1 standard drink = 0.6 oz pur e alcohol) [facility] Utilities Answer Date Recorded In the past 12 months has e [employer], gas, oil, or water [employer] threatened to shut off services in your [...] your living situation today? I have a [facility] place to live 10/18/2023 Sex and Gender Information Value Date Recorded Sex Assigned at Female 01/02/2021 12:49 PM CDT Gender Identity Female 01/02/2021 12:49 PM CDT Sexual Orientation Straight 01/02/2021 12 :49 PM CDT documented as of this encounter Last Filed Vital Signs Vital Sign Reading Time Taken Comments Blood Pressure 124/81 12/26/2023 2:44 PM CDT Pulse 72 12/26/2023 2:44 PM CDT Temperature 36 ??C (96.8 ??F) 12/26/2023 2:44 PM CDT Respiratory Rate - - Oxygen Saturation 99% 12/26/2023 2:44 PM CDT Inhaled Oxygen Concentration - - Weight 93 kg (205 lb 0.4 oz) 12/26/2023 2:44 PM CDT Height 171 cm (5' 7.32) 12/26/2023 2:44 PM CDT Body Mass Index 31.8 12/26/2023 2:44 PM CDT documented in this encounter H&P Notes * Salvador Leonard APRN, C.N.P., M.S. - 12/26/2023 3:00 PM CDT REASON FOR VISIT: Preoperative Medical Evaluation REFERRING PHYSICIAN: Luciano Shepherd M.D. 12/30/2023: ARTHROPLASTY REPLACEMENT TOTAL HIP; Luciano Shepherd M.D. Surgery Specific Risk Classification: Intermediate Risk SUBJECTIVE HISTORY OF PRESENT ILLNESS Lisette Yuan is a 63 y.o. female who is here for preanesthetic medical examination prior to the planned procedure as listed above. REVIEW OF SYSTEMS Eyes: - Glasses. Musculoskeletal: Positive for pain or stiffness in the joints and muscle pain/stiffness. All other systems reviewed and are negative. Cardiac Risk Scoring: Savage Cardiac Score: 0.15% Revised Cardiac Risk Index 0 Points - Very Low Risk of Cardiac Event (0.4%) DASI Calculations Flowsheet Row Comprehensive Visit from 12/26/2023 in Preoperative Evaluation Center in [place], [place] DASI Total Score 36.7 Estimated V02 Peak 25.38 Estimated MET Level 7.25 OBJECTIVE OBJECTIVE PHYSICAL EXAMINATION General/Constitutional Constitutional Assessment: Normal General State of Health: Healthy appearing Airway (HEENT) Mallampati: III TM Distance: >3 FB Neck ROM: Full Mouth Opening: > 3 cm Upper Lip Bite Test: I Dental Assessment: Dentition intact Cardiovascular Rhythm: Regular Rate: Normal Cardiovascular Assessment: Normal Pulmonary Pulmonary Assessment: Clear Neurological Neurologic Assessment: Alert and oriented X 3 Musculoskeletal MSK Assessment: Normal Gait: Normal Ambulate with: None Psychiatric Psychiatric Assessment: Calm Dermatology Skin Assessment: normal ASSESSMENT / PLAN Anesthesia: RBC antibody. Patient denies all other personal/family previous anesthesia related complications. Please see allergy history. Airway Hx: No chart review airway. Lab: - 12/25/2023 HGB 12.6, HCT 36.4, PLT 165, WBC 3.8, CR 1.09/GFR 57 (CKD 3A, no dialysis history),BUN 24, Na 138, K 5.0, total calcium 9.6, glucose 110. ECG: - 04/11/2020 normal sinus rhythm 63 bpm, low-voltage QRS, nonspecific T-wave abnormality, comparison ECG 03/21/2010 PVCs no longer present, AI dashboard unremarkable. ECHO: DV - - 10/25/2010 2D echo final impression: Normal LV chamber size. EF 60%. No regional wall abnormalities. Normal LV diastolic function. 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 (no recurrent echo) Trivial aortic valve regurg. #1 Preanesthetic Medical Exam #2 Primary Osteoarthritis Hip Left #3 Pain Hip Left Kind hearted 63-year-old woman here with daughter for SANIYA visit. Active individual. Able to care for self at home. No ambulation aids. Mets 7.25. Denies cardiopulmonary symptoms both at rest and withexertional activity. On exam today denies any fever/chills, cough, nasal drainage, or sinus pressure. 1-2 cups coffee daily without withdrawal headaches. 4-5 alcoholic drinks weekly without withdrawal history. No smoking/COVID history. Please see planned procedure and HPI above. Please hold all ibuprofen, aspirin, supplements, minerals, and vitamins 1 week prior to surgery. Celebrex last dose 12/24/2023. #4 Allergy Antibiotic Personal History Ceftriaxone allergy history. Last evaluated by Kailey SNIDER allergy and immunology 12/26/2023 with recommendation: After review of the EMR, it does appear appropriate to proceed with both penicillin and cefazolin allergy testing. Orders are already in place. Should initial nursing interview identify any further history of concern, I am happy to see the patient for a formal pre-consultation before testing. #5 Hyperlipidemia #6 Chronic Kidney Disease (CKD), Stage 3a Glomerular Filtration Rate (GFR) 45 To 59 (HCC) Treated with no stroke/TIA history. 12/25/2023 CR 1.09/GFR 57 (CKD 3A, no dialysis history), lytes normal. Renal insufficiency and hypertension history due to cyclosporin (stopped) in 2008 for CLL treatment. No recent LFTs/liver imaging. Aortic valve strand: Evaluated by Dr. Root cardiology 10/27/2010 with fibrous strand thought to be degenerative process causing significant ventricular ectopy and recommendation was for a repeat echo in 1 year. Last evaluated by Dr. Bunn cardiology 03/31/2020 with no recommendation for repeat echo due to lack of Holter ectopy/arrhythmia findings 04/11/2020. No other further evaluation needed. No acute cardiopulmonary/angina symptoms. No cardiac ischemia/infarction/surgical/arrhythmic history. No thromboembolism history. Pulse 73. BP 124/81. Please see cardiac testing above. Simvastatin will continue as prescribed. #7 Hypothyroidism Treated with no thyroid symptoms. No thyroidectomy. No recent TSH. Levothyroxine will continue as prescribed. #8 Obstructive Sleep Apnea Adult CPAP compliant. Instructed to bring CPAP to surgery. 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 Chemo history. No radiation. Asymptomatic today. No stem cell transplant history. Last evaluated by Dr. Parr hematology 11/12/2020 with no follow-up needed unless change in blood counts. Continue CLL surveillance/treatment per primary care provider. #10 Obesity Body Mass Index 30-39.9 Adult BMI 31.80. PATIENT EDUCATION: Reviewed Instructions To Get Ready for Your Surgery or Procedure: [facility] [id number] rev 0124. Written and verbal instructions given on medication management beforesurgery. Reviewed instructions on avoiding aspirin, ibuprofen-containing medications, and supplements one week before surgery. Patient may take acetaminophen as needed for pain. RECOMMENDATIONS: Patient medically optimized for planned procedure: Yes Further Recommendations: None documented in this encounter Plan of Treatment Upcoming Encounters Date Type Department Care Team (Late st Contact Info) Description 03/31/2024 11:45 AM SUPERVISOR ASSEMBLY AND PACKING Appointment Department of Radiology in [address] [phone] Luciano Shepherd M.D. 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
--- OUTSIDE RECORDS SUMMARY | 2024-01-24 11:46 | XMS_ITS | Encounter Summary ---
Author Organization [facility] Address [address] [place] [address] Care Team Providers Care Culinary Chef Name Role Phone Elsewhere, Pcp Primary Care Provider Unavailabl e Reason for Referral * Outpatient (Routine) - Closed Specialty Diagnoses / Procedures Referred By Blayne joseph Referred To Contact Allergy and Immunology Diagnoses Allergy Drug Personal History Procedures Allergy and Immunology - Single drug allergy eConsult Carroll Biggs M.B.B.S., Ph.D. [address] [place] [phone] [facility] Referral ID Status Reason Start Date Expiration Date Visits Re quested Visits Authorized [id number] Closed 12/24/2023 12/23/2024 1 1 Encounter Details Date Type Department Care Team (Late st Contact Info) Description 12/24/2023 Orders Only Division of Allergic Diseases in [place], [place] [address] [place] [phone] Adelia aLnge R.N. [address] [place] [phone] Allergy Drug Personal History (Primary Dx) Social History Tobacco Use Types Packs/Day Years Used Date Smoking Tobacco: Never Smokeless Tobacco: Never [facility] Utilities Answer Date Recorded In the past 12 months has th e electric, gas, oil, or water [employer] threatened to shut off services in your [...] st Contact Info) Description 03/31/2024 11:45 AM HOOP EXPANDER Appointment Department of Radiology in [place], [place] [address] [place] [address] Luciano Shepherd M.D. [address] [place] [address] [phone] (work) documented as of this encounter Visit Diagnoses Diagnosis Allergy Drug Personal History- Primary documented in this encounter Care Teams Culinary Chef Relationship Specialty Start Date End Date Elsewhere, Pcp PCP - General Family Medicine 12/01/20 documented as of this encounter
--- OUTSIDE RECORDS SUMMARY | 2024-01-24 11:46 | XMS_ITS | Encounter Summary ---
Author Organization [facility] Address [address] [place] [address] Care Team Providers Care Rubber Tire Curer Name Role Phone Elsewhere, Pcp Primary Care Provider Unavailabl e Reason for Visit * Reason Comments Allergy Testing * Outpatient (Routine) - Closed Specialty Diagnoses / Procedures Referred By Blayne joseph Referred To Contact Diagnoses Allergy Antibiotic Personal History Procedures Penicillin Skin Test Luciano Shepherd M.D. [address] [place] [phone] [facility] Referral ID Status Reason Start Date Expiration Date Visits Re quested Visits Authorized [id number] Closed 10/24/2023 10/23/2024 1 1 Encounter Details Date Type Department Care Team (Latest Contact Info) Description 12/26/2023 1:15 PM CDT Clinical Support Division of Allergic Diseases in [place], [place] [address] [place] [phone] Luciano Shepherd M.D. [address] [place] [phone] Katie Borjas R.N. [address] [place] [phone] Allergy Antibiotic Personal History Social History Tobacco Use Types Packs/Day Years Used Date Smoking Tobacco: Never Smokeless Tobacco: Never Alcohol Use Standard Drinks/Week Comments Yes 4 (1 standard drink = 0.6 oz pur e alcohol) [facility] Utilities Answer Date Recorded In the [...] your living situation today? I have a [facility] place to live 10/18/2023 Sex and Gender Information Value Date Recorded Sex Assigned at Female 01/02/2021 12:49 PM CDT Gender Identity Female 01/02/2021 12:49 PM CDT Sexual Orientation Straight 01/02/2021 12 :49 PM CDT documented as of this encounter Procedure Notes * Katie Borjas, R.N. - 12/26/2023 1:15 PM CDTAssociated Order(s): ALI PENICILLIN SKIN TEST Images from the original note were not included. Penicillin and other antibiotic skin test Flowsheet Row Clinical Support from 12/26/2023 in Division of Allergic Diseases in [place], [place] Penicillin and other antibiotics (Prick) Histamine [...] ID] Cefazolin (ID) 0 [33 mg/ml ID] documented in this encounter Plan of Treatment Upcoming Encounters Date Type Department Care Team (Late st Contact Info) Description 03/31/2024 11:45 AM CORPORATE TRAINING MANAGER Appointment Department of Radiology in [place], [place] [address] [place] [address] Luciano Shepherd M.D. [address] [place] [phone] documented as of this encounter Procedures Procedure Name Priority Date/Time Associated Diagnosis Comments ALI PENICILLIN SKIN TEST Routine 12/26/2023 1:15 PM CDT Allergy Antibiotic Personal History documented in this encounter Results * Penicillin Skin Test (12/26/2023 1:15 PM CDT) Narrative [facility]ODAL - 12/26/2023 1:15 PM CDT Katie Borjas R.N. ? 12/26/2023 ??2:10 PM Penicillin and other antibiotic skin test ?? Flowsheet Row Clinical Support from 12/26/2023 in Division of Allergic Diseases in [place], [place] Penicillin and other antibiotics (Prick) ?? [...] encounter Visit Diagnoses Diagnosis Allergy Antibiotic Personal History documented in this encounter Care Teams Rubber Tire Curer Relationship Specialty Start Date End Date Elsewhere, Pcp PCP - General Family Medicine 12/01/20 documented as of this encounter
--- OUTSIDE RECORDS SUMMARY | 2024-01-24 11:46 | XMS_ITS | Encounter Summary ---
Author Organization [facility] Address [address] [place] [address] Care Team Providers Care Director Of Casework Services Name Role Phone Elsewhere, Pcp Primary Care Provider Unavailabl e Reason for Visit * Reason Onset Date Comments Pre-visit Intake 10/21/2023 Encounter Details Date Type Department Care Team (Latest Contact Info) Description 10/21/2023 12:30 PM CDT Clinical Communication Virtual Review in [place], [place] 200 [place] [phone] Pre-visit Intake Social History Tobacco Use Types Packs/Day Years Used Date Smoking Tobacco: Never Smokeless Tobacco: Never [facility] Utilities Answer Date Recorded In [...] your living situation today? I have a [facility] place to live 10/18/2023 Sex and Gender Information Value Date Recorded Sex Assigned at Female 01/02/2021 12:49 PM CDT Gender Identity Female 01/02/2021 12:49 PM CDT Sexual Orientation Straight 01/02/2021 12 :49 PM CDT documented as of this encounter Plan of Treatment Upcoming Encounters Date Type Department Care Team (Late st Contact Info) Description 03/31/2024 11:45 AM BRICK MOLDER HAND Appointment Department of Radiology in [place], [place] [address] [place] [address] Luciano Shepherd M.D. [address] [place] [address] documented as of this encounter Visit Diagnoses Not on filedocumented in this encounter Care Teams Director Of Casework Services Relationship Specialty Start Date End Date Elsewhere, Pcp PCP - General Family Medicine 12/01/20 documented as of this encounter
--- OUTSIDE RECORDS SUMMARY | 2024-01-24 11:46 | XMS_ITS | Encounter Summary ---
Author Organization [facility] Address [address] [place] [phone] Care Team Providers Care Slipper Maker Name Role Phone Elsewhere, Pcp Primary Care Provider Unavailabl e Encounter Details Date Type Department Care Team (Latest Contact Info) Description 12/24/2023 10:15 AM CDT Clinical Communication Virtual Review in [place], [place] [address] [place] [phone] Social History Tobacco Use Types Packs/Day Years Used Date Smoking Tobacco: Never Smokeless Tobacco: Never [facility] Utilities Answer Date Recorded In the [...] living situation today? I have a [facility] place to live 10/18/2023 Sex and Gender Information Value Date Recorded Sex Assigned at Female 01/02/2021 12:49 PM CDT Gender Identity Female 01/02/2021 12:49 PM CDT Sexual Orientation Straight 01/02/2021 12 :49 PM CDT documented as of this encounter Plan of Treatment Upcoming Encounters Date Type Department Care Team (Late st Contact Info) Description 03/31/2024 11:45 AM COLD MILL INSPECTOR Appointment Department of Radiology in [place], [place] [address] [place] [address] Luciano Shepherd M.D. [address] [place] [address] documented as of this encounter Visit Diagnoses Not on filedocumented in this encounter Care Teams Slipper Maker Relationship Specialty Start Date End Date Elsewhere, Pcp PCP - General Family Medicine 12/01/20 documented as of this encounter
== END 2024-01-23 08:11 | disposition home or self-care (01) ==
LOC: NFLDREF 01-24 11:38
PROVIDERS: PCP Internal Medicine; Referring Provider Internal Medicine; Visit Provider Registered Nurse
DX: E78.5 Hyperlipidemia, unspecified (principal); E03.9 Hypothyroidism, unspecified; M85.80 Other specified disorders of bone density and structure, unspecified site; D64.9 Anemia, unspecified; Z13.1 Encounter for screening for diabetes mellitus
CPT/HCPCS: 80061; 82306; 82728; 82947; 83540; 83550; 84443

== ENCOUNTER 2024-03-16 09:12 | Outpatient (CLI) | payer BC, SELFPAY ==
--- NOTE | 2024-03-16 09:15 | CRLHL7_ITS ---
For Patients: As a result of the Century Cures Act, medical imaging exams and procedure reports are released immediately into your electronic medical record. You may view this report before your referring provider. If you have questions, please contact your health care provider. BILATERAL SCREENING MAMMOGRAM WITH COMPUTER-AIDED DETECTION AND TOMOSYNTHESIS TECHNIQUE: CC and MLO views were obtained. These mammographic images have been obtained using full-field digital technique. These mammographic images were interpreted with the benefit of computer-aided detection. Breast Tomosynthesis was used in this interpretation. COMPARISON FILM: 03/15/23, 01/17/22, 02/14/21. FINDINGS: The breasts are heterogeneously dense, which may obscure small masses. IMPRESSION: There is no radiographic evidence for malignancy. ASSESSMENT: BI-RADS Category 1: Negative RECOMMENDATION: Routine screening mammogram in 1 year. A lay language report of this examination will be provided to the patient. Slava Pacheco M.D. Diagnostic Radiologist [email or web address] SP/Dictated by: Slava Pacheco MD @ 03/18/2024 10:48:00 AM (Electronically Signed)
--- OUTSIDE RECORDS SUMMARY | 2024-03-16 09:16 | XMS_ITS ---
Author Organization [facility] Address [address] [place] [address] Care Team Providers Care Lawn Care Professional Name Role Phone Unavailable Unavailable Unavailable Surgery Details Not on file Complications Check Surgery Details section. Procedure Estimated Blood Loss Check Surgery Details section. Procedure Findings Check Surgery Details section. Procedure Specimens Taken Check Surgery Details section.
--- OUTSIDE RECORDS SUMMARY | 2024-03-16 09:16 | XMS_ITS | Encounter Summary ---
Author Organization [facility] Address [address] [place] [address] Care Team Providers Care Strike Planning Applications Name Role Phone Elsewhere, Pcp Primary Care Provider Unavailabl e Encounter Details Date Type Department Care Team (Late st Contact Info) Description 12/31/2023 Documentation Department of Orthopedic Surgery in [place], [place] [address] [place] [phone] Lacey Wong M.D. [address] [place] [phone] Social History Tobacco Use Types Packs/Day Years Used Date Smoking Tobacco: Never Smokeless Tobacco: Never Alcohol Use Standard Drinks/Week Comments Yes 4 (1 standard drink = 0.6 oz pur e alcohol) [facility] Utilities Answer Date Recorded In the past 12 months has [employer], [place], oil, or water [employer] threatened to shut off services in your [...] living situation today? I have a [facility] place to live 10/18/2023 Comments No Sex and Gender Information Value Date Recorded Sex Assigned at Female 01/02/2021 12:49 PM CDT Legal Sex Female 8:13 AM BIZTALK SOFTWARE DEVELOPER Gender Identity Female 01/02/2021 12:49 PM CDT [...] Department Care Team (Latest Contact Info) Description 03/31/2024 11:45 AM BIZTALK SOFTWARE DEVELOPER Appointment Department of Radiology in [place], [place] [address] [place] [address] Luciano Shepherd M.D. [address] [place] [phone] 04/22/2024 1:00 PM BIZTALK SOFTWARE DEVELOPER Clinical Communication Virtual Review in [place], [place] [address] [place] [address] 04/24/2024 10:15 AM BIZTALK SOFTWARE DEVELOPER Office Visit Department of Orthopedic Surgery in [place], [place] [address] [place] [phone] Luciano Shepherd M.D. [address] [place] [phone] documented as of this encounter Visit Diagnoses Not on filedocumented in this encounter Care Teams Strike Planning Applications Relationship Specialty Start Date End Date Elsewhere, Pcp PCP - General Family Medicine 12/01/20 documented as of this encounter
--- OUTSIDE RECORDS SUMMARY | 2024-03-16 09:16 | XMS_ITS | Encounter Summary ---
Author Organization [facility] Address [address] [place] [address] Care Team Providers Care Community Outreach Coordinator Name Role Phone Elsewhere, Pcp Primary Care Provider Unavailabl e Encounter Details Date Type Department Care Team (Late st Contact Info) Description 01/21/2024 Clinical Communication Department of Orthopedic Surgery in [place], [place] [address] [place] [phone] Luciano Shepherd M.D. [address] [place] [phone] Social History Tobacco Use Types Packs/Day Years Used Date Smoking Tobacco: Never Smokeless Tobacco: Never Alcohol Use Standard Drinks/Week Comments Yes 4 (1 standard drink = 0.6 oz pur e alcohol) [facility] Utilities Answer Date Recorded In the past 12 months has [place], gas, oil, or water [facility] [employer] threatened to shut off services in your [...] your living situation today? I have a [facility] place to live 10/18/2023 Comments No Sex and Gender Information Value Date Recorded Sex Assigned at Female 01/02/2021 12:49 PM CDT Legal Sex Female 8:13 AM FOREMAN OR SUPERVISOR AND OPERATOR Gender Identity Female 01/02/2021 12:49 PM CDT Sexual Orientation Straight 01/02/2021 12 :49 PM CDT documented as of this encounter Miscellaneous Notes * Telephone Encounter - Cari Núñez RIgorN. - 01/21/2024 2:51 PM CDT ----- Message from Nurse Alcala sent at 12/26/2023 11:18 AM CDT ----- Regardin week f/u Left ADAM, 12/30/2023 documented in this encounter Plan of Treatment Upcoming Encounters Date Type Department Care Team (Latest Contact Info) Description 03/31/2024 11:45 AM FOREMAN OR SUPERVISOR AND OPERATOR Appointment Department of Radiology in [place], [place] [address] [place] [phone] Luciano Shepherd M.D. [address] [place] [address] 04/22/2024 1:00 PM FOREMAN OR SUPERVISOR AND OPERATOR Clinical Communication Virtual Review in [place], [place] [address] [place] [phone] 04/24/2024 10:15 AM FOREMAN OR SUPERVISOR AND OPERATOR Office Visit Department of Orthopedic Surgery in [place], [place] [address] [place] [phone] Luciano hSepherd M.D. [address] [place] [phone] documented as of this encounter Visit Diagnoses Not on filedocumented in this encounter Care Teams Community Outreach Coordinator Relationship Specialty Start Date End Date Elsewhere, Pcp PCP - General Family Medicine 12/01/20 documented as of this encounter
--- OUTSIDE RECORDS SUMMARY | 2024-03-16 09:16 | XMS_ITS | Encounter Summary ---
Author Organization [facility] Address [address] [place] [address] Care Team Providers Care Glue Cook Name Role Phone Elsewhere, Pcp Primary Care Provider Unavailabl e Reason for Visit * Auth/Cert (Routine) Specialty Diagnoses / Procedures Referred By Blayne joseph Referred To Contact Diagnoses Other Specified Arthritis Left Hip Other Specified Arthritis Left Hip [M13.852] Procedures [place] ARTHRO ACETAB&FEM PROSTH (ADAM) [place] CASN PROC MUSSKL NO IMG ARTHROPLASTY REPLACEMENT TOTAL HIP with computer-assisted navigation (OrthAlign) Luciano Shepherd M.D. [address] [place] [phone] Phone: tel: fax: Referral ID Status Reason Start Date Expiration Date Visits Re quested Visits Authorized [id number] 1 1 Encounter Details Date Type Department Care Team (Late st Contact Info) Description 12/30/2023 7:55 AM CDT - 12/30/2023 10:32 AM CDT Surgery [facility] [address] [place] [phone] Luciano Shepherd M.D. [address] [place] [phone] ARTHROPLASTY REPLACEMENT TOTAL HIP, computer-assisted navigation, OrthAlign. Social History Tobacco Use Types Packs/Day Years Used Date Smoking Tobacco: Never Smokeless Tobacco: Never Alcohol Use Standard Drinks/Week Comments Yes 4 (1 standard drink = 0.6 oz pur e alcohol) [facility] Utilities Answer Date Recorded In the [...] [facility] 10/18/2023 Comments No Sex and Gender Information Value Date Recorded Sex Assigned at Female 01/02/2021 12:49 PM CDT Legal Sex Female 8:13 AM MAIL DISTRIBUTION SCHEME EXAMINER Gender Identity Female 01/02/2021 12:49 PM CDT Sexual Orientation Straight 01/02/2021 12 :49 PM CDT documented as of this encounter Last Filed Vital Signs Vital Sign Reading Time Taken Comments Blood Pressure 99/68 12/30/2023 10:30 AM CDT Pulse 61 12/30/2023 10:30 AM CDT Temperature 36.5 C (97.7 F) 12/30/2023 10:25 AM CDT Respiratory Rate 13 12/30/2023 10:30 AM CDT Oxygen Saturation 97% 12/30/2023 10:30 AM CDT Inhaled Oxygen Concentration - - Weight 93 kg (205 lb 0.4 oz) 12/30/2023 6:33 AM CDT Height 171 cm (5' 7.32) 12/30/2023 6:33 AM CDT Body Mass Index 31.8 12/30/2023 6:33 AM CDT documented in this encounter Medications at Time of Discharge acetaminophen (TylenoL) 500 mg tablet Take 2 tablets (1,000 mg total) by mouth every 6 (six) hours. Take for 4 weeks. 120 tablet 4 acyclovir (ZOVIRAX) 400 mg tablet Take 1 tablet (400 mg total) by mouth as needed (as needed for cold sores). 1 aspirin 81 mg chewable tablet Chew 1 tablet (81 mg total) 2 (two) times a day with meals. Recommended to minimize risk of blood clot. Once completed, resume the usual dose of aspirin your primary provider may recommend. 60 tablet 4 calcium carbonate/vitamin D3 (CALCIUM 500 + D, D3, ORAL) Take 1 tablet by mouth daily. 7 CALCIUM CITRATE-VITAMIN D3 ORAL Take by mouth daily. 9 celecoxib (CeleBREX) 200 mg capsule Take 1 capsule (200 mg total) by mouth daily. Take for 4 weeks for inflammation and pain. 30 capsule 4 folic acid 400 mcg tablet Take 400 mcg by mouth daily. levothyroxine (SYNTHROID, LEVOTHROID) 88 mcg tablet Take 1 tablet (88 mcg total) by mouth daily. 90 tablet 3 8 multivitamin tablet Take 1 tablet by mouth daily. 7 ondansetron ODT (Zofran-ODT) 4 mg disintegrating tablet Dissolve 1 tablet (4 mg total) in the mouth every 6 (six) hours as needed for nausea or vomiting. 12 tablet 12/30/2023 2:39 PM CDT 4 oxyCODONE (Roxicodone) 5 mg immediate release tabletIndications:A cute Pain Take 1 tablet (5 mg total) by mouth every 4 (four) hours as needed for severe pain or score 7-10 of 10 for up to 18 doses Indication: Acute Pain. 18 tablet 12/30/2023 2:39 PM CDT 4 sennosides-docusate sodium (Senna with Docusate Sodium) 8.6-50 mg per tablet Take 1 tablet by mouth 2 (two) times a day. Take 1 tablet by mouth every 12 hours while taking opioids 30 tablet 4 simvastatin (Zocor) 10 mg tablet Take 10 mg by mouth daily. 4 traMADoL (Ultram) 50 mg tabletIndications:A cute Pain Take 1 tablet (50 mg total) by mouth every 6 (six) hours as needed for moderate pain or score 4-6 of 10 or severe pain or score 7-10 of 10 for up to 12 doses Indications: Acute Pain. 12 tablet 12/30/2023 2:39 PM CDT 4 pantoprazole (Protonix) 40 mg EC tablet Take 1 tablet (40 mg total) by mouth daily before morning meal. Take for 4 weeks. 30 tablet 12/30/2023 2:39 PM CDT 4 01/29/20 24 documented as of this encounter Consult Notes * Js Medel PRudolph., D.P.T. - 12/30/2023 3:07 PM CDT Physical Therapy Inpatient Evaluation/Treatment SUBJECTIVE Patient's Name: Lisette Yuan Referring/Attending Provider: Luciano Shepherd M.D. Medical Diagnosis: Other Specified Arthritis Left Hip [M13.852] Reason for Referral: PT Evaluate and Treat Weight-bearing as tolerated lower extremity Onset Date: 12/30/23 Payor: [employer] / Plan: [employer] [place] / Product Type: PPO / PERTINENT [...] Driving: Independent Prior Mobility/Functional Transfers Level of [place]: Independent Home Equipment Gait Devices Owned: Front-wheeled [...] needs met and questions answered. Outcome Measures -[facility] Inpatient Short Form: -[facility] Basic Mobility (V.2) How much help [...] 3-5 steps with a railing?: A Little AM-[facility] Basic Mobility (V.2) Raw Score: 22 AM-[facility] Basic Mobility (V.2) Standardized Score: 47.4 Interpretation: Clinicians answer the -[facility] Inpatient Short Form based on observed [...] Time (min): 21 min Js Medel P.T., ChrissyP.TIgor * Bernadette Mae O.T. - 12/30/2023 2:28 PM CDT Occupational Therapy [facility] Inpatient Evaluation/Treatment By co-signing this note, [...] 63 y.o. 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 Outcome Measures: [facility] Inpatient Short Form: Putting on and taking [...] at or below 17 Clinicians answer the [facility] Inpatient Short Form based on observed patient activity and/or clinical judgment (ie. patient can be scored without physically performing each activity) Treatment consisted of: Bed Mobility: -Patient instructed on compensatory strategies to improve transfer in/out of bed. Recommendations provided with adaptations for correct sequencing, technique, and modification tools including leg build master as needed and/or bed adjustments. Completes at [...] Guided practice performed utilizing the following equipment internal medicine doctor, sock aid, long handled shoe horn, dressing [...] doffing over it last. Guidedpractice performed with Magnetic Tape Typewriter Operator, Sock Aid, Long Handled Shoe Horn, Dressing Stick. Toileting -Patient instructed on accurate positioning and modifications for toileting skills with hygiene care and clothing management to adhere to precautions. Education and recommendations provided on toiletseat modifications. Bed Mobility: -Patient instructed on compensatory strategies to improve transfer in/out of bed. Recommendations provided with adaptations for correct sequencing, technique, and modification tools including leg build master and/or bed adjustments. Functional Transfers: -Provided instruction and cues during functional sit to/from stand transfers, including body alignment to surface, appropriate hand placement, and optimal placement of surgical extremity to optimize safety and technique. Handouts provided today: Protecting your Hip Arthroplasty After Surgery [id number] Bathroom Safety Equip. [id number] Patient Disposition at the end of Treatment: [...] Time (min): 50 min Bernadette Mae O.T. Cosigned by Luciano Shepherd M.D. at 12/30/2023 5:26 PM CDT documented in this encounter OR Notes * Op Note - Luciano Shepherd M.D. - 12/30/2023 8:54 AM CDT Pre-op Diagnosis Arthritis Left Hip Post-op Diagnosis Arthritis Left Hip Workers Compensation Consultant A underwriting assistant actively participated and was necessary for [...] pins into the iliac crest for the [employer] navigation system. Once assembled we proceeded with [...] Postoperative x-rays look very satisfactory...Dictated by Dr. Shepherd/Sam. Luciano Shepherd M.D. documented in this encounter Plan of Treatment Upcoming Encounters Date Type Department Care Team (Latest Contact Info) Description 03/31/2024 11:45 AM MAIL DISTRIBUTION SCHEME EXAMINER Appointment Department of Radiology in [place], [place] [address] [place] [phone] Luciano Shepherd M.D. [address] [place] [phone] 04/22/2024 1:00 PM MAIL DISTRIBUTION SCHEME EXAMINER Clinical Communication Virtual Review in [place], [place] [address] [place] [phone] 04/24/2024 10:15 AM MAIL DISTRIBUTION SCHEME EXAMINER Office Visit Department of Orthopedic Surgery in [place], [place] [address] [place] [phone] Luciano Shepherd M.D. [address] [place] [phone] documented as of this encounter Procedures Procedure [...] purposes. Narrative 12/30/2023 11:24 AM CDT EXAM: DX HIP LEFT 2-3 VIEWS Procedure Note Sonam Patel M.D. - 12/30/2023 EXAM: DX HIP LEFT 2-3 VIEWS IMPRESSION: Left ADAM. Negative for postoperative purposes. Luciano Shepherd M.D. [facility] DIAGNOSTIC IMAGING PROC EDURES Final Result documented in this encounter Visit Diagnoses Diagnosis [...] (rounded from 1,395 mg = 15 mg/kg 93 kg), intravenous, at 167 mL/hr, Administer over 90 Minutes, Once, On Sat12/30/23 at 0630, For 1 dose, Pre-Op, Administer within 2 hours prior to surgical incision, Drug Monitoring Program: Pharmacist to adjust medication dosing based on indication and drug clearance factors., Indications: Prophylaxis, surgicalIndications:Pr ophylaxis, surgical New Bag 12/30/2023 7:29 AM CDT 1,500 mg 167 mL/hr documented in this encounter Active and Recently Administered Medications Times are shown in CDT. Scheduled Medication Order 12/28/2023 12/29/202312/30/2023 acetaminophen tablet 1,000 mg (TylenoL) 1,000 mg, [...] 0947 (Given - Provid er: Rubina Field, SUPERVISOR, HORSEBACK RIDING INSTRUCTOR) vancomycin in NaCl 0.9% IVPB 1,500 mg (COMPLETED) 1,500 mg (rounded from 1,395 mg = 15 mg/kg 93 kg), intravenous, at 167 mL/hr, Administer [...] or score 7-10 of 10, Starting on 12/30/23 at 1128, PACU & Post-Op, First line therapy or for pain greater than comfort goal (not to exceed 400 mg in 24 hours). May also administer lower pain scale value dose of prescribed medication based on patient request., Restriction Criteria (Pharmacy will review and approve if criteria met): Use in adults 18 years and older documented in this encounter Care Teams Glue Cook Relationship Specialty Start Date End Date Elsewhere, Pcp PCP - General Family Medicine 12/01/20 documented as of this encounter
--- OUTSIDE RECORDS SUMMARY | 2024-03-16 09:16 | XMS_ITS | Referral Summary ---
Author Organization [facility] Address [address] [place] [address] Care Team Providers Care Statistical Engineer Name Role Phone Elsewhere, Pcp Primary Care Provider Unavailabl e Source Comments Patient records contain information from all sites at [facility]. For routine questions regarding patient records, call [phone] during business hours, M-F 8:00 AM - 5:00 PM Central Time. Record requests for emergency care only can be directed to [phone] at any time.[facility] Encounters Date Type Department Care Team Description 01/21/2024 Clinical Communication Department of Orthopedic Surgery in [place], [place] [address] [place] [address] Luciano Shepherd M.D. 12/31/2023 Documentation Department of Orthopedic Surgery in [place], [place] [address] [place] [address] Lacey Wong M.D. 12/30/2023 7:55 AM CDT - 12/30/2023 10:32 AM CDT Surgery [facility] ([place], [place]) OR [address] [place] [address] Luciano Shepherd M.D. ARTHROPLASTY REPLACEMENT TOTAL HIP, computer-assisted navigation, OrthAlign. 12/30/2023 8:20 AM CDT Anesthesia Event [facility] ([place] [place]) OR [address] [place] [address] DemirciMulugeta M.D. Lu, Angela, M.D. 12/30/2023 5:54 AM CDT - 12/30/2023 3:21 PM CDT Hospital Encounter Outpatient Surgery Unit in [place], [place] [address] [place] [phone] Luciano Shepherd M.D. Decline Functional Status [R53.81] (Primary Dx); Difficulty Walking Orthopedic Hip Cause [R26.2] Discharge Disposition: Home or Self Care 12/26/2023 8:00 AM CDT Internal E-Consult Division of Allergic Diseases in [place], [place] [address] [place] [phone] Kailey Li P.A.-C., M.S. Allergy Drug Personal History (Primary Dx) 12/26/2023 11:00 AM CDT Comprehensive Visit Department of Physical Medicine and Rehabilitation in [place], [place] [address] [place] [phone] Mohit Stephenson M.D. Rowenhorst, Rachel J, SPT Primary Osteoarthritis Hip Left 12/26/2023 2:00 PM CDT Comprehensive Visit Division of Allergic Diseases in [place], [place] [address] [place] [phone] Kailey Li P.A.-C., M.S. Allergy Antibiotic Personal History (Primary Dx) 12/26/2023 1:15 PM CDT Clinical Support Division of Allergic Diseases in [place], [place] [address] [place] [phone] Luciano Shepherd M.D. Miller, Jaylin A R.N. Allergy Antibiotic Personal History 12/26/2023 10:00 AM CDT Office Visit Department of Orthopedic Surgery in [place], [place] [address] [place] [phone] Luciano Shepherd M.D. Kramer, Marcene K R.Kristian. Arthroplasty Total Hip Replacement Status Post Left (Primary Dx); Primary Osteoarthritis Hip Left; Pain Hip Left; Anemia Aplastic (HCC); Preanesthetic Medical Exam; Aftercare Total Hip Arthroplasty 12/26/2023 3:00 PM CDT Comprehensive Visit Preoperative Evaluation Center in [place], [place] [address] [place] [phone] Luciano Shepherd M.D. Salvador Leonard APRN, C.N.P., M.S. 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 Primary Osteoarthritis Hip Left Discharge Disposition: Home or Self Care 12/24/2023 Orders Only Division of Allergic Diseases in [address] [phone] Adelia Lange R.N. Allergy Drug Personal History (Primary Dx) 12/24/2023 10:15 AM CDT Clinical Communication Virtual Review in [address] [phone] from Last 3 Months Allergies Active Allergy Reactions Criticality Noted Date Comments Ceftriaxone Edema, suggestive of allergic reaction, i.e., lip, tongue, or throat swelling High 09/27/2008 Itching/tightening inside throat Penicillin allergy testing is negative on 12/26/23. May use penicillins. Avoid cephalosporins. See allergy note 12/26/23 for cefazolin option with surgery. Medications calcium carbonate/vitamin D3 (CALCIUM 500 + D, D3, ORAL) Take 1 tablet by mouth daily. 03/18/20 17 Active multivitamin tablet Take 1 tablet by mouth daily. 03/18/20 17 Active levothyroxine (SYNTHROID, LEVOTHROID) 88 mcg tablet Take 1 tablet (88 mcg total) by mouth daily. 90 tablet 3 10/09/19 18 Active acyclovir (ZOVIRAX) 400 mg tablet Take 1 tablet (400 mg total) by mouth as needed (as needed for cold sores). 11/12/19 Active CALCIUM CITRATE-VITAMIN D3 ORAL Take by mouth daily. 01/04/20 Active folic acid 400 mcg tablet Take 400 mcg by mouth daily. Active simvastatin (Zocor) 10 mg tablet Take 10 mg by mouth daily. 06/08/19 Active acetaminophen (TylenoL) 500 mg tablet Take 2 tablets (1,000 mg total) by mouth every 6 (six) hours. Take for 4 weeks. 120 tablet 12/30/19 Active aspirin 81 mg chewable tablet Chew 1 tablet (81 mg total) 2 (two) times a day with meals. Recommended to minimize risk of blood clot. Once completed, resume the usual dose of aspirin your primary provider may recommend. 60 tablet 12/30/19 Active celecoxib (CeleBREX) 200 mg capsule Take 1 capsule (200 mg total) by mouth daily. Take for 4 weeks for inflammation and pain. 30 capsule 12/30/19 24 Active traMADoL (Ultram) 50 mg tabletIndications: Acute Pain Take 1 tablet (50 mg total) by mouth every 6 (six) hours as needed for moderate pain or score 4-6 of 10 or severe pain or score 7-10 of 10 for up to 12 doses Indications: Acute Pain. 12 tablet 4 2:39 PM CDT 12/30/19 24 Active oxyCODONE (Roxicodone) 5 mg immediate release tabletIndications: Acute Pain Take 1 tablet (5 mg total) by mouth every 4 (four) hours as needed for severe pain or score 7-10 of 10 for up to 18 doses Indication: Acute Pain. 18 tablet 4 2:39 PM CDT 12/30/19 24 Active sennosides-docusat e sodium (Senna with Docusate Sodium) 8.6-50 mg per tablet Take 1 tablet by mouth 2 (two) times a day. Take 1 tablet by mouth every 12 hours while taking opioids 30 tablet 12/30/19 24 Active ondansetron ODT (Zofran-ODT) 4 mg disintegrating tablet Dissolve 1 tablet (4 mg total) in the mouth every 6 (six) hours as needed for nausea or vomiting. 12 tablet 4 2:39 PM CDT 12/30/19 24 Active Active Problems Problem Noted Date Diagnosed [...] Failure Syndromes 11/05/2019 12/26/2023 Overview (11/05/2019): 1. September 27, 2008. Presented with dyspnea and pancytopenia. Viral and nutritional workup neg. PNH negative. Bone marrow biopsy 30% cellular marrow with some areas of regeneration. There were no dysmorphic features identified. Chromosomes, flow cytometry, and MDS FISH panel normal. 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 2. October 27, 2008. Initiated treatment with prednisone 60 mg daily for 6 weeks. Improvement in neutropenia and transfusion requirements. 3. Dec 09, 2008. Begin steroid taper and initiate treatment with Methotrexate. 4. January 20, 2009. Finished steroids. Continued methotrexate. Neutropenia improved, but thrombocytopenia and anemia persisted. LGL cells present in blood. 5. May 05, 2008. Counts continued to trend down on methotrexate. Methotrexate stopped and initiated therapy with cyclosporine. 6. August of 2008, increased creatinine and hypertension. Cyclosporin stopped with no improvement in counts. 7. November 2009, evaluation at [facility] by Dr. Jung, initiated treatment with Cytoxan 100 mg daily. 8. January 2010, severe pancytopenia following initial Cytoxan which was held. A re-trial of Cytoxan resulted in repeat episode of severe pancytopenia. Patient treated with antibiotics for bronchial infection. Cytoxan stopped. 9. March 02, 2010, re-evaluation at [facility]. 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 There was no diagnostic morphologic, flow, or molecular genetic features involvement of LGL leukemia. Remained severely pancytopenic with red blood cell transfusion requirements every two weeks. 10. March 13 through March 19, 2010, hospitalized for treatment with steroids, ATG, and cyclosporin. Complications with asymptomatic sinus bradycardia requiring monitoring. LFT elevations and cyclosporin held. Patient started on tacrolimus. Steroids finished June 01, 2010. 11. May 2010 to present, continues on tacrolimus. Bone marrow biopsy November 06, 2010, reveals increase in cellularity to 40% with otherwise unremarkable erythropoiesis and no diagnostic features of a myelodysplastic syndrome or lymphoproliferative disorder. T-cell receptor gene rearrangement studies were negative, although a very small PNH clone was slightly increased on PNH flow evaluation. In calendar year 2010, Mrs. Yuan required transfusion of 6 units of packed red blood cells. 12. January 2012, the patient went to [facility] and met with Dr. Joey Villarreal for a second opinion. Recommendations were to continue current management as she was not eligible for any clinical trials. 13. Patient had relatively stable counts and did not require any transfusions since November 08, 2011. 14. September 14, 2015, initiated taper of tacrolimus, given stable counts over the past two years. 15. January 13, 2016, completed the tacrolimus taper. 16. [...] Dr. Bloom if this sounds reasonable. PLAN: CBC in 6 months mail in Return visit in 1 year Pancytopenia 09/27/2008 11/14/2020 Immunizations Name Administration Dates Next Due Influenza Split 01/15/2011 PPSV23 04/15/2011 SARS-COV-2 (COVID-19) - MODERNA(Discontinued) Tdap 04/15/2010,10/13/2002 Social History Tobacco Use Types Packs/Day Years Used Date Smoking Tobacco: Never Smokeless Tobacco: Never Tobacco Cessation:Counseling Given: Not Answered Alcohol Use Standard Drinks/Week Comments Yes 4 (1 standard drink = 0.6 oz pur e alcohol) [facility] Utilities Answer Date Recorded In the past 12 months has [employer], gas, oil, or water [employer] threatened to shut off services in your [...] your living situation today? I have a [facility] place to live 10/18/2023 Comments No Sex and Gender Information Value Date Recorded Sex Assigned at Female 01/02/2021 12:49 PM CDT Legal Sex Female 8:13 AM WIRELESS DEVELOPMENT MANAGER Gender Identity Female 01/02/2021 12:49 PM CDT Sexual Orientation Straight 01/02/2021 12 :49 PM CDT Last Filed Vital Signs Vital Sign Reading Time Taken Comments Blood Pressure 119/75 12/30/2023 2:16 PM CDT Pulse 54 12/30/2023 12:10 PM CDT Temperature 36.3 C (97.3 F) 12/30/2023 11:19 AM CDT Respiratory Rate 14 12/30/2023 12:10 PM CDT [...] (Latest Contact Info) Description 03/31/2024 11:45 AM WIRELESS DEVELOPMENT MANAGER Appointment Department of Radiology in [place], [place] [address] [place] [address] Luciano Shepherd M.D. [address] [place] [phone] 04/22/2024 1:00 PM WIRELESS DEVELOPMENT MANAGER Clinical Communication Virtual Review in [place], [place] [address] [place] [address] 04/24/2024 10:15 AM WIRELESS DEVELOPMENT MANAGER Office Visit Department of Orthopedic Surgery in [place], [place] [address] [place] [phone] Luciano Shepherd M.D. [address] [place] [phone] Medical Devices Implanted Type Area Air Traffic Control Operator Device Identifier Shelf Expiration Date Model / Serial / Lot Scrw Trl Acet Ft 6.5x30 - [id number] Implanted:Qty : 1 on 12/30/2023 by Luciano Shepherd M.D. at [facility] Hardware e.g. pins/screws/ rods Left: Hip [employer] [id number] 08/05/2033 [id number] / / [id number] Shll Acet G7 Lhl 52 - [id number] Implanted:Qty : 1 on 12/30/2023 by Luciano Shepherd M.D. at [facility] Hip Implant Left: Hip [employer] 07/05/2033 [id number] / / [id number] Lnr G7 Vv Std Andreas 36 - [id number] Implanted:Qty : 1 on 12/30/2023 by Luciano Shepherd M.D. at [facility] Hip Implant Left: Hip [employer] 08/18/2028 [id number] / / [id number] Hip Stm Actis Hofst Sz3 - [id number] Implanted:Qty : 1 on 12/30/2023 by Luciano Shepherd M.D. at [facility] Hip Implant Left: Hip Depuy [employer]ynthes 09/12/2033 [id number] / / [id number] Fem Hd Art -2ofst 36 - [id number] Implanted:Qty : 1 on 12/30/2023 by Luciano Shepherd M.D. at [facility] Hip Implant Left: Hip Depuy Synthes 07/13/2033 [id number] / / [id number] Procedures Procedure Name Priority Date/Time Associated Diagnosis [...] Negative for postoperative purposes. Luciano Shepherd M.D. [facility] DI[facility]NO[facility]IC [facility]AGING PROC EDURES Final Result * Regional Block (12/30/2023 8:32 AM CDT) Narrative Mulugeta Aguiar M.D. - 12/30/2023 8:32 AM CDT Elda Wright M.D. 12/30/2023 9:09 AM Regional Block Date/Time: 12/30/2023 8:32 AM [...] Medications: Injection(s), anesthetic agent(s) and/or steroid; See [facility] UNIVERSAL PROTOCOL All relevant documentation and testing [...] fellow participated in the procedure, and the network consultant was present for the entire procedure. us Mulugeta Aguiar M.D. PROCEDURE/MINOR SURGICAL ORDER CHERELLE Final Result * Penicillin Skin Test (12/26/2023 1:15 PM CDT) Narrative [facility] - 12/26/2023 1:15 PM CDT Katie Borjas R.N. 12/26/2023 2:10 PM Penicillin and other antibiotic skin test Flowsheet Row Clinical Support from 12/26/2023 in Division of Allergic Diseases in [place], [place] Penicillin and other antibiotics (Prick) Histamine [...] ID] Cefazolin (ID) 0 [33 mg/ml ID] us Luciano Shepherd M.D. PROCEDURE/MINOR SURGICAL OR DERABLES Final Result [facility] NA * (ABNORMAL) CBC with Differential, [...] 10:23 AM CDT 12/25/2023 10:27 AM CDT us Luciano Shepherd M.D. LAB BLOOD ADD-ON Final Resu lt [facility] [address] [place] [address], [facility] in [address] [address] * (ABNORMAL) Basic Metabolic Panel (12/25/2023 10:23 [...] 10:23 AM CDT 12/25/2023 10:27 AM CDT us Luciano Shepherd M.D. LAB BLOOD ADD-ON Final Resu lt Performing Organization Address City/State/[facility] Co de Phone Number [facility] [address] [place] [address], [facility] [place] [address] * Thyroid Function [place] (09/16/2017 11:44 AM CDT) TSH, Sensitive 3.8 0.3 - 4.2 mIU/L 09/16/2017 12:56 PM CDT [facility] Blood 09/16/2017 11:4 4 AM CDT 09/16/2017 12:06 PM CDT us Iqra Hurt M.D., M.P.H. LAB BLOOD ADD-ON Rosa l Result [facility] [address] [place] [address], [facility] from Last 3 Months or Most Recently Relevant to Health Maintenance [facility] Advance Directives For more information, please contact: [phone] * Full Code (Latest Code Status on File) Date Activated Date Inactivated Comments 12/30/2023 11:28 AM 12/30/2023 5:27 PM Question Answer Comments Full Code: Not Discussed Due to: Patient not available * Full Code Date Activated Date Inactivated Comments 12/30/2023 6:04 AM 12/30/2023 11:28 AM Question Answer Comments Full Code: Not Discussed Due to: Patient not available Care Teams Statistical Engineer Relationship Specialty Start Date End Date Elsewhere, Pcp PCP - General Family Medicine 12/01/20
--- OUTSIDE RECORDS SUMMARY | 2024-03-16 09:16 | XMS_ITS | Encounter Summary ---
Author Organization [facility] Address [address] [place] [address] Care Team Providers Care Profile Saw Operator Name Role Phone Elsewhere, Pcp Primary Care Provider Unavailabl e Reason for Visit * Auth/Cert (Routine) Specialty Diagnoses / Procedures Referred By Blayne t Referred To Contact Diagnoses Other Specified Arthritis Left Hip Other Specified Arthritis Left Hip [M13.852] Procedures ID ARTHRO ACETAB&FEM PROSTH (ADAM) ID CASN PROC MUSSKL NO IMG ARTHROPLASTY REPLACEMENT TOTAL HIP with computer-assisted navigation (OrthAlign) Luciano Shepherd M.D. [address] [place] [phone] Phone: tel: fax: Referral ID Status Reason Start Date Expiration Date Visits Re quested Visits Authorized [id number] 1 1 Encounter Details Date Type Department Care Team (Late st Contact Info) Description 12/30/2023 8:20 AM CDT Anesthesia Event [facility] [address] [place] [phone] Mulugeta Aguiar M.D. [address] [place] [phone] Elda Wright M.D. [address] [place] [phone] Anesthesia Record Procedure Summary Procedure Name Responsible [...] Anes CS Handoff I, Rubina bhatti APRN, SURVEY WORKERS SUPERVISOR, attest that I have reconciled the controlled [...] pin sites 12/30/23 0000 by Dionne Arreola RKayla Peripheral IV Placement Date: 12/14 10/06; Placement [...] drink = 0.6 oz pur e alcohol) [facility] Utilities Answer Date Recorded In the past 12 months has e [employer], gas, oil, or water [employer] threatened to shut off services in your [...] your living situation today? I have a [facility] place to live 10/18/2023 Comments No Sex and Gender Information Value Date Recorded Sex Assigned at Female 01/02/2021 12:49 PM CDT Legal Sex Female 8:13 AM SCHOOL LIBRARIAN Gender Identity Female 01/02/2021 12:49 PM CDT Sexual Orientation Straight 01/02/2021 12 :49 PM CDT documented as of this encounter OR Notes * Anesthesia Postprocedure Evaluation - Mulugeta Aguiar M.D. - 12/30/2023 10:48 AM CDT Patient: Lisette Yuan Procedure Summary Date: 12/30/23 Room / Location: [place] [address] / [facility] in [place], [place] Anesthesia Start: 0820 Anesthesia Stop: 1037 Procedure: ARTHROPLASTY REPLACEMENT TOTAL [...] fellow participated in the procedure, and the organizational development consultant was present for the entire procedure. Cosigned by Mulugeta Aguiar M.D. at 12/30/2023 10:25 AM CDT * Anesthesia Preprocedure Evaluation - Elda Wright M.D. - 12/30/2023 7:22 AM CDT Preprocedure Anesthesia & H&P Assessment Procedure Summary Date/Time: 12/30/23 0755 Procedure: ARTHROPLASTY REPLACEMENT TOTAL HIP, computer-assisted navigation, OrthAlign. (Left) Diagnosis: Other Specified Arthritis Left Hip [M13.852] Pre-op diagnosis: Other Specified Arthritis Left Hip [M13.852]. Location: [place] [address] / [facility] in [place], [place] Providers: Luciano Shepherd M.D. Pertinent components [...] with patient /legal guardian or through an package clerk. Risks/Benefits/Alternatives of Blood transfusion discussed with patient / legal guardian, includingan opportunity to ask questions and/or decline some or all transfusion therapies. The patient / legal guardian consented to the use of all blood products, as deemed medically necessary Approval to Proceed: approved for anesthesia Cosigned by Mulugeta Aguiar M.D. at 12/30/2023 8:15 AM CDT documented in this encounter Plan of Treatment Upcoming Encounters Date Type Department Care Team (Latest Contact Info) Description 03/31/2024 11:45 AM SCHOOL LIBRARIAN Appointment Department of Radiology in [place], [place] [address] [place] [address] Luciano Shepherd M.D. [address] [place] [phone] 04/22/2024 1:00 PM SCHOOL LIBRARIAN Clinical Communication Virtual Review in [place], [place] [address] [place] [address] 04/24/2024 10:15 AM SCHOOL LIBRARIAN Office Visit Department of Orthopedic Surgery in [place], [place] [address] [place] [phone] Luciano Shepherd M.D. [address] [place] [phone] documented as of this encounter Procedures Procedure [...] fellow participated in the procedure, and the organizational development consultant was present for the entire procedure. us Mulugeta Aguiar M.D. PROCEDURE/MINOR SURGICAL ORDER CHERELLE Final Result documented in this encounter Visit Diagnoses Not on filedocumented in this encounter Administered Medications Inactive Administered Medications - up to 3 most recent administrations Medication Order MAR Action Action Date Dose Rate Site ceFAZolin injection (Ancef) intravenous, As needed, Starting on Sat12/30/23 at 0853, Anesthesia Intra-op Given 12/30/2023 8:53 [...] g documented in this encounter Care Teams Profile Saw Operator Relationship Specialty Start Date End Date Elsewhere, Pcp PCP - General Family Medicine 12/01/20 documented as of this encounter
--- OUTSIDE RECORDS SUMMARY | 2024-03-16 09:16 | XMS_ITS | Clinical Summary ---
Author Organization [facility] Address [address] [place] [address] Care Team Providers Care Materials Planning Analyst Name Role Phone Elsewhere, Pcp Primary Care Provider Unavailabl e Source Comments Patient records contain information from all sites at [facility]. For routine questions regarding patient records, call [phone] during business hours, M-F 8:00 AM - 5:00 PM Central Time. Record requests for emergency care only can be directed to [phone] at any time.[facility] Allergies Active Allergy Reactions Criticality Noted Date [...] needed (as needed for cold sores). 11/12/19 21 Active CALCIUM CITRATE-VITAMIN D3 ORAL Take by [...] 12 tablet 4 2:39 PM CDT 12/30/19 Active oxyCODONE (Roxicodone) 5 mg immediate release tabletIndications: Acute Pain Take 1 tablet (5 mg total) by mouth every 4 (four) hours as needed for severe pain or score 7-10 of 10 for up to 18 doses Indication: Acute Pain. 18 tablet 4 2:39 PM CDT 12/30/19 Active sennosides-docusat e sodium (Senna with Docusate Sodium) 8.6-50 mg per tablet Take 1 tablet by mouth 2 (two) times a day. Take 1 tablet by mouth every 12 hours while taking opioids 30 tablet 12/30/19 Active ondansetron ODT (Zofran-ODT) 4 mg disintegrating [...] in counts. 7. November 2009, evaluation at [facility] by Dr. Jung, initiated treatment with Cytoxan 100 mg daily. 8. January 2010, severe pancytopenia following initial Cytoxan which was held. A re-trial of Cytoxan resulted in repeat episode of severe pancytopenia. Patient treated with antibiotics for bronchial infection. Cytoxan stopped. 9. March 02, 2010, re-evaluation at [facility]. Repeat bone marrow performed showing moderately to [...] 12. January 2012, the patient went to [facility] and met with Dr. Joey Villarreal for [...] Clinical Communication Department of Orthopedic Surgery in [place], [place] [address] [place] [address] Luciano Shepherd M.D. 12/31/2023 Documentation Department of Orthopedic Surgery in [place], [place] [address] [place] [address] Lacey Wong M.D. 12/30/2023 8:20 AM CDT Anesthesia Event [facility] OR [address] [place] [address] Mulugeta Aguiar M.D. Lu, Angela, M.D. 12/30/2023 7:55 AM CDT - 12/30/2023 10:32 AM CDT Surgery [facility] OR [address] [place] [address] Luciano Shepherd M.D. ARTHROPLASTY REPLACEMENT TOTAL HIP, computer-assisted navigation, [employer]. 12/30/2023 5:54 AM CDT - 12/30/2023 3:21 PM CDT Hospital Encounter Outpatient Surgery Unit in [place], [place] [address] [place] [address] Luciano Shepherd M.D. Decline Functional Status [R53.81] (Primary Dx); Difficulty Walking Orthopedic Hip Cause [R26.2] Discharge Disposition: Home or Self Care 12/26/2023 3:00 PM CDT Comprehensive Visit Preoperative Evaluation Center in [place], [place] [address] [place] [address] Luciano Shepherd M.D. Pauly, Jacob J, JENNIFER, C.N.P., M.S. 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 Allergy Antibiotic Personal History (Primary Dx) 12/26/2023 1:15 PM CDT Clinical Support Division of Allergic Diseases in [place], [place] [address] [place] [address] Luciano Shepherd M.D. Miller, Jaylin A, R.N. Allergy Antibiotic Personal History 12/26/2023 11:00 AM CDT Comprehensive Visit Department of Physical Medicine and Rehabilitation in [place], [place] [address] [place] [address] Mohit Stephenson M.D. Rowenhorst, Rachel J, SPT Primary Osteoarthritis Hip Left 12/26/2023 10:00 AM CDT Office Visit Department of Orthopedic Surgery in [place], [place] [address] [place] [phone] Luciano Shepherd M.D. Kramer, Marcene K, R.N. Arthroplasty Total Hip Replacement Status Post Left (Primary Dx); Primary Osteoarthritis Hip Left; Pain Hip Left; Anemia Aplastic (HCC); Preanesthetic Medical Exam; Aftercare Total Hip Arthroplasty 12/26/2023 8:00 AM CDT Internal E-Consult Division of Allergic Diseases in [place], [place] [address] [place] [phone] Kailey Li P.A.-C., M.S. Allergy Drug Personal History (Primary Dx) 12/25/2023 10:19 AM CDT - 12/25/2023 11:59 PM CDT Hospital Encounter Department of Laboratory Medicine in [address] [phone] Luciano Shepherd M.D. Primary Osteoarthritis Hip Left Discharge Disposition: Home or Self Care 12/24/2023 10:15 AM CDT Clinical Communication Virtual Review in [place], [place] [address] [place] [address] 12/24/2023 Orders Only Division of Allergic Diseases in [place], [place] [address] [place] [phone] Adelia Lange RIgorN. Allergy Drug Personal History (Primary Dx) from Last 3 Months Immunizations Name Administration [...] 0.6 oz pur e alcohol) [facility] Utilities Answer Date Recorded In the [...] your living situation today? I have a [facility] place to live 10/18/2023 Comments No Sex and Gender Information Value Date Recorded Sex Assigned at Female 01/02/2021 12:49 PM CDT Legal Sex Female 8:13 AM VESSEL SCRAPPER HELPER Gender Identity Female 01/02/2021 12:49 PM CDT [...] (Latest Contact Info) Description 03/31/2024 11:45 AM VESSEL SCRAPPER HELPER Appointment Department of Radiology in [place], [place] [address] [place] [address] Luciano Shepherd M.D. [address] [place] [phone] 04/22/2024 1:00 PM VESSEL SCRAPPER HELPER Clinical Communication Virtual Review in [place], [place] [address] [place] [address] 04/24/2024 10:15 AM VESSEL SCRAPPER HELPER Office Visit Department of Orthopedic Surgery in [place], [place] [address] [place] [phone] Luciano Shepherd M.D. [address] [place] [phone] Health Maintenance Due Date Last Done Comments CT Colonography 1961 Cologuard 1961 FIT 1961 Pneumococcal vaccine (0-64 years) (3 of 3 - PCV) 01/16/2013 01/17/2012, 04/15/2011 Cervical/Vaginal Cancer Screening 10/11/2013 10/11/2010 (Performed elsewhere) Mammogram 01/13/2014 01/13/2013 (Perf ormed [...] Additional history exists Influenza Vaccine (#1) 2024 , 02/01/2022, 01/16/2021, Additional history exists Fasting Glucose [...] on patient's age to complete this topic IPV Vaccines Aged Out No longer eligi ble based on patient's age to complete this topic Medical Devices Implanted Type Area Lime Boiler Device Identifier Shelf Expiration Date Model / Serial / Lot Scrw Trl Acet Ft 6.5x30 - [id number] Implanted:Qty : 1 on 12/30/2023 by Luciano Shepherd M.D. at [facility] Hardware e.g. pins/screws/ rods Left: Hip [employer] [id number] 08/05/2033 [id number] / / [id number] Barbara Hogan G7 Lhl 52 - [id number] Implanted:Qty : 1 on 12/30/2023 by Luciano Shepherd M.D. at [facility] Hip Implant Left: Hip [employer] 07/05/2033 [id number] / / [id number] Lnr G7 Vv Std Andreas 36 - [id number] Implanted:Qty : 1 on 12/30/2023 by Luciano Shepherd M.D. at [facility] Hip Implant Left: Hip [employer] 08/18/2028 [id number] / / [id number] Hip Stm Actis Hofst Sz3 - [id number] Implanted:Qty : 1 on 12/30/2023 by Luciano Shepherd M.D. at [facility] Hip Implant Left: Hip Depuy [employer]ynthes 09/12/2033 [id number] / / [id number] Fem Hd Art -2ofst 36 - [id number] Implanted:Qty : 1 on 12/30/2023 by Luciano Shepherd M.D. at [facility] Hip Implant Left: Hip Depuy Synthes 07/13/2033 [id number] / / [id number] Procedures Procedure Name Priority Date/Time Associated Diagnosis [...] Negative for postoperative purposes. Luciano Shepherd M.D. [facility] DIAGNOSTIC IMAGING PROC EDURES Final Result * [...] fellow participated in the procedure, and the national sales consultant was present for the entire procedure. us Mulugeta Aguiar M.D. PROCEDURE/MINOR SURGICAL ORDER CHERELLE Final Result * Penicillin Skin Test (12/26/2023 1:15 PM CDT) Narrative MMODAL - 12/26/2023 1:15 PM CDT Katie Borjas R.N. 12/26/2023 2:10 PM Penicillin and other antibiotic skin test Flowsheet Row Clinical Support from 12/26/2023 in Division of Allergic Diseases in [place], [place] Penicillin and other antibiotics (Prick) Histamine [...] M.D. LAB BLOOD ADD-ON Final Resu lt [facility] [address] [place] [address], [facility] in [address] [address] * (ABNORMAL) Basic Metabolic Panel (12/25/2023 10:23 [...] M.D. LAB BLOOD ADD-ON Final Resu lt [facility] [address] [place] [address], [facility] in [address] [address] * Thyroid Function Patrick (09/16/2017 11:44 AM CDT) TSH, Sensitive 3.8 0.3 - 4.2 mIU/L 09/16/2017 12:56 PM CDT [facility] Blood 09/16/2017 11:4 4 AM CDT 09/16/2017 12:06 PM CDT us Iqra Hurt M.D., M.P.H. LAB BLOOD ADD-ON Rosa l Result [facility] [address] [place] [address], [facility] from Last 3 Months or Most Recently Relevant to Health Maintenance Insurance [facility] Advance Directives For more information, please contact: [phone] * Full Code (Latest Code Status on File) Date Activated Date Inactivated Comments 12/30/2023 11:28 AM 12/30/2023 5:27 PM Question Answer Comments Full Code: Not Discussed Due to: Patient not available * Full Code Date Activated Date Inactivated Comments 12/30/2023 6:04 AM 12/30/2023 11:28 AM Question Answer Comments Full Code: Not Discussed Due to: Patient not available Care Teams Materials Planning Analyst Relationship Specialty Start Date End Date Elsewhere, Pcp PCP - General Family Medicine 12/01/20
--- OUTSIDE RECORDS SUMMARY | 2024-03-16 09:17 | XMS_ITS | Encounter Summary ---
Author Organization [facility] Address [address] [place] [address] Care Team Providers Care Inspector Packager Name Role Phone Elsewhere, Pcp Primary Care Provider Unavailabl e Reason for Visit * Reason Comments Allergy Testing * Outpatient (Routine) - Closed Specialty Diagnoses / Procedures Referred By Blayne joseph Referred To Contact Diagnoses Allergy Antibiotic Personal History Procedures Penicillin Skin Test Luciano Shepherd M.D. [address] [place] [phone] Phone: tel: fax: [facility] Referral ID Status Reason Start Date Expiration Date Visits Re quested Visits Authorized [id number] Closed 10/24/2023 10/23/2024 1 1 Encounter Details Date Type Department Care Team (Latest Contact Info) Description 12/26/2023 1:15 PM CDT Clinical Support Division of Allergic Diseases in [place], [place] [address] [place] [phone] Luciano Shepherd M.D. [address] [place] [phone] Katie Borjas R.N. [address] [place] [phone] Allergy Antibiotic Personal History Social History Tobacco Use Types Packs/Day Years Used Date Smoking Tobacco: Never Smokeless Tobacco: Never Alcohol Use Standard Drinks/Week Comments Yes 4 (1 standard drink = 0.6 oz pur e alcohol) [facility] Utilities Answer Date Recorded In the [...] [facility] 10/18/2023 Comments Unknown Sex and Gender Information Value Date Recorded Sex Assigned at Female 01/02/2021 12:49 PM CDT Legal Sex Female 8:13 AM WIRE CHARGER Gender Identity Female 01/02/2021 12:49 PM CDT Sexual Orientation Straight 01/02/2021 12 :49 PM CDT documented as of this encounter Procedure Notes * Katie Borjas R.N. - 12/26/2023 1:15 PM CDTAssociated Order(s): ALI PENICILLIN SKIN TEST Images from the original note were not included. Penicillin and other antibiotic skin test Flowsheet Row Clinical Support from 12/26/2023 in Division of Allergic Diseases in [place], [place] Penicillin and other antibiotics (Prick) Histamine [...] (Latest Contact Info) Description 03/31/2024 11:45 AM WIRE CHARGER Appointment Department of Radiology in [address] [phone] Luciano Shepherd M.D. [address] [place] [phone] 04/22/2024 1:00 PM WIRE CHARGER Clinical Communication Virtual Review in [place], [place] [address] [place] [address] 04/24/2024 10:15 AM WIRE CHARGER Office Visit Department of Orthopedic Surgery in [address] [phone] Luciano Shepherd M.D. [address] [place] [phone] documented as of this encounter Procedures Procedure [...] 12/26/2023 in Division of Allergic Diseases in [place], [place] Penicillin and other antibiotics (Prick) Histamine [...] SURGICAL OR DERABLES Final Result MMODAL NA documented in this encounter Visit Diagnoses Diagnosis Allergy Antibiotic Personal History documented in this encounter Care Teams Inspector Packager Relationship Specialty Start Date End Date Elsewhere, Pcp PCP - General Family Medicine 12/01/20 documented as of this encounter
--- OUTSIDE RECORDS SUMMARY | 2024-03-16 09:17 | XMS_ITS | Encounter Summary ---
Author Organization [facility] Address [address] [place] [address] Care Team Providers Care Rn Radiation Oncology Name Role Phone Elsewhere, Pcp Primary Care Provider Unavailabl e Reason for Referral * Outpatient (Routine) - Closed Specialty Diagnoses / Procedures Referred By Blayne joseph Referred To Contact Allergy and Immunology Diagnoses Allergy Drug Personal History Procedures Allergy and Immunology - Single drug allergy eConsult Carroll Biggs, M.B.B.S., Ph.D. [address] [place] [phone] Phone: tel: fax: [facility] Referral ID Status Reason Start Date Expiration Date Visits Re quested Visits Authorized [id number] Closed 12/24/2023 12/23/2024 1 1 Encounter Details Date Type Department Care Team (Late st Contact Info) Description 12/24/2023 Orders Only Division of Allergic Diseases in [place], [place] [address] [place] [phone] Adelia Lange R.N. [address] [place] [phone] Allergy Drug Personal History (Primary Dx) Social History Tobacco Use Types Packs/Day Years Used Date Smoking Tobacco: Never Smokeless Tobacco: Never [facility] Utilities Answer Date Recorded In the past 12 months has th e [employer], gas, oil, or water [employer] threatened to shut off services in your [...] your living situation today? I have a [facility] place to live 10/18/2023 Comments Unknown Sex and Gender Information Value Date Recorded Sex Assigned at Female 01/02/2021 12:49 PM CDT Legal Sex Female 8:13 AM LANG INTERPRETER Gender Identity Female 01/02/2021 12:49 PM CDT Sexual Orientation Straight 01/02/2021 12 :49 PM CDT documented as of this encounter Plan of Treatment Upcoming Encounters Date Type Department Care Team (Latest Contact Info) Description 03/31/2024 11:45 AM LANG INTERPRETER Appointment Department of Radiology in [place], [place] [address] [place] [address] Luciano Shepherd M.D. [address] [place] [phone] 04/22/2024 1:00 PM LANG INTERPRETER Clinical Communication Virtual Review in [place], [place] [address] [place] [address] 04/24/2024 10:15 AM LANG INTERPRETER Office Visit Department of Orthopedic Surgery in [address] [phone] Luciano Shepherd M.D. [address] [place] [phone] documented as of this encounter Visit Diagnoses Diagnosis Allergy Drug Personal History- Primary documented in this encounter Care Teams Rn Radiation Oncology Relationship Specialty Start Date End Date Elsewhere, Pcp PCP - General Family Medicine 12/01/20 documented as of this encounter
--- OUTSIDE RECORDS SUMMARY | 2024-03-16 09:17 | XMS_ITS | Encounter Summary ---
Author Organization [facility] Address [address] [place] [address] Care Team Providers Care Director Of Digital Marketing Name Role Phone Elsewhere, Pcp Primary Care Provider Unavailabl e Encounter Details Date Type Department Care Team (Late st Contact Info) Description 12/13/2023 Orders Only Department of Orthopedic Surgery in [place], [place] [address] [place] [address] Cari Núñez R.N. [address] [place] [phone] Primary Osteoarthritis Hip Left (Primary Dx); Pain Hip Left Social History Tobacco Use Types Packs/Day Years Used Date Smoking Tobacco: Never Smokeless Tobacco: Never [facility] Utilities Answer Date Recorded In the past 12 months [facility] [employer] gas, oil, or water [employer] threatened to shut off services in your [...] your living situation today? I have a [facility] place to live 10/18/2023 Comments Unknown Sex and Gender Information Value Date Recorded Sex Assigned at Female 01/02/2021 12:49 PM CDT Legal Sex Female 8:13 AM SERVICE ATTENDANT Gender Identity Female 01/02/2021 12:49 PM CDT Sexual Orientation Straight 01/02/2021 12 :49 PM CDT documented as of this encounter Plan of Treatment Upcoming Encounters Date Type Department Care Team (Latest Contact Info) Description 03/31/2024 11:45 AM SERVICE ATTENDANT Appointment Department of Radiology in [place], [place] [address] [place] [address] Luciano Shepherd M.D. [address] [place] [phone] 04/22/2024 1:00 PM SERVICE ATTENDANT Clinical Communication Virtual Review in [place], [place] [address] [place] [address] 04/24/2024 10:15 AM SERVICE ATTENDANT Office Visit Department of Orthopedic Surgery in [place], [place] [address] [place] [phone] Luciano Shepherd M.D. [address] [place] [phone] documented as of this encounter Visit Diagnoses Diagnosis Primary Osteoarthritis Hip Left- Primary Pain Hip Left documented in this encounter Care Teams Director Of Digital Marketing Relationship Specialty Start Date End Date Elsewhere, Pcp PCP - General Family Medicine 12/01/20 documented as of this encounter
--- OUTSIDE RECORDS SUMMARY | 2024-03-16 09:17 | XMS_ITS | Encounter Summary ---
Author Organization [facility] Address [address] [place] [address] Care Team Providers Care Junior Underwriter Name Role Phone Elsewhere, Pcp Primary Care Provider Unavailabl e Reason for Visit * Auth/Cert (Routine) Specialty Diagnoses / Procedures Referred By Blayne joseph Referred To Contact Diagnoses Other Specified Arthritis Left Hip Other Specified Arthritis Left Hip [M13.852] Procedures CA ARTHRO ACETAB&FEM PROSTH (ADAM) CA CASN PROC MUSSKL NO IMG ARTHROPLASTY REPLACEMENT TOTAL HIP with computer-assisted navigation (OrthAlign) Luciano Shepherd M.D. [address] [place] [phone] Phone: tel: fax: Referral ID Status Reason Start Date Expiration Date Visits Re quested Visits Authorized [id number] 1 1 Encounter Details Date Type Department Care Team (Latest Contact Info) Description 12/30/2023 5:54 AM CDT - 12/30/2023 3:21 PM CDT Hospital Encounter Outpatient Surgery Unit in [place], [place] [address] [place] [phone] Luciano Shepherd M.D. [address] [place] [phone] Decline Functional Status [R53.81] (Primary Dx); Difficulty Walking Orthopedic Hip Cause [R26.2] Discharge Disposition: Home or Self Care Social History Tobacco Use Types Packs/Day Years Used Date Smoking Tobacco: Never Smokeless Tobacco: Never Alcohol Use Standard Drinks/Week Comments Yes 4 (1 standard drink = 0.6 oz pur e alcohol) [facility] Utilities Answer Date Recorded In [...] your living situation today? I have a [facility] place to live 10/18/2023 Comments No Sex and Gender Information Value Date Recorded Sex Assigned at Female 01/02/2021 12:49 PM CDT Legal Sex Female 8:13 AM SWEEP PRESS OPERATOR Gender Identity Female 01/02/2021 12:49 PM [...] tablet 12/30/2023 2:39 PM CDT 4 01/29/20 documented as of this encounter Consult Notes * Js Medel PRudolph., D.P.T. - 12/30/2023 3:07 PM CDT Physical Therapy Inpatient Evaluation/Treatment SUBJECTIVE Patient's Name: Lisette Yuan Referring/Attending Provider: Luciano Shepherd M.D. Medical Diagnosis: Other Specified Arthritis Left Hip [M13.852] Reason for Referral: PT Evaluate and Treat Weight-bearing as tolerated lower extremity Onset Date: 12/30/23 Payor: [employer]) / Plan: [place]IE [place] / Product Type: PPO / PERTINENT [...] Driving: Independent Prior Mobility/Functional Transfers Level of [place]: Independent Home Equipment Gait Devices Owned: Front-wheeled [...] needs met and questions answered. Outcome Measures [facility] Inpatient Short Form: -[facility] Basic Mobility (V.2) How much [...] 3-5 steps with a railing?: A Little -[facility] Basic Mobility (V.2) Raw Score: 22 -[facility] Basic Mobility (V.2) Standardized Score: 47.4 Interpretation: Clinicians answer the -[facility] Inpatient Short Form based on [...] Time (min): 21 min Js Medel P.T., Chriss.P.T. * Bernadette Mae O.T. - 12/30/2023 2:28 PM CDT Occupational Therapy [facility] Inpatient Evaluation/Treatment By co-signing this note, the [...] 63 y.o. 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 for 2 days and then return home [...] at the time of evaluation. Outcome Measures: [facility] Inpatient Short Form: Putting on and [...] at or below 17 Clinicians answer the [facility] Inpatient Short Form based on observed patient activity and/or clinical judgment (ie. patient can be scored without physically performing each activity) Treatment consisted of: Bed Mobility: -Patient instructed on compensatory strategies to improve transfer in/out of bed. Recommendations provided with adaptations for correct sequencing, technique, and modification tools including leg health education director as needed and/or bed adjustments. Completes at [...] Guided practice performed utilizing the following equipment gum machine filler, sock aid, long handled shoe horn, dressing [...] doffing over it last. Guidedpractice performed with Twisting Operator, Sock Aid, Long Handled Shoe Horn, Dressing Stick. Toileting -Patient instructed on accurate positioning and modifications for toileting skills with hygiene care and clothing management to adhere to precautions. Education and recommendations provided on toiletseat modifications. Bed Mobility: -Patient instructed on compensatory strategies to improve transfer in/out of bed. Recommendations provided with adaptations for correct sequencing, technique, and modification tools including leg health education director and/or bed adjustments. Functional Transfers: -Provided instruction and cues during functional sit to/from stand transfers, including body alignment to surface, appropriate hand placement, and optimal placement of surgical extremity to optimize safety and technique. Handouts provided today: Protecting your Hip Arthroplasty After Surgery [id number] Bathroom Safety Equip. [id number] Patient Disposition at the end of Treatment: [...] Left Hip Post-op Diagnosis Arthritis Left Hip Appraiser [employer] A head start assistant teacher actively participated and was necessary for one [...] pins into the iliac crest for the [employer] ([employer]) navigation system. Once assembled we proceeded with [...] (Latest Contact Info) Description 03/31/2024 11:45 AM SWEEP PRESS OPERATOR Appointment Department of Radiology in [place], [place] [address] [place] [phone] Luciano Shepherd M.D. [address] [place] [phone] 04/22/2024 1:00 PM SWEEP PRESS OPERATOR Clinical Communication Virtual Review in [place], [place] 200 [place] [phone] 04/24/2024 10:15 AM SWEEP PRESS OPERATOR Office Visit Department of Orthopedic Surgery in [place], [place] [address] [place] [phone] Luciano Shepherd M.D. [address] [place] [phone] documented as of this encounter Procedures Procedure [...] Negative for postoperative purposes. Luciano Shepherd M.D. [facility] DI[facility]NOSTIC IMAGING PROC EDURES Final Result documented [...] indication and drug clearance factors., Indications: Prophylaxis, surgicalIndications:Prop hylaxis, surgical New Bag 12/30/2023 7:29 AM CDT [...] tourniquet 0947 (Given - Provid er: Rubina Field APRN, [facility]) vancomycin in NaCl 0.9% IVPB 1,500 mg [...] (New Bag - Prov ider: Galileo Taylor R.Kristian.) Continuous Medication Order 12/28/2023 12/29/2023 12/30/2023 Lactated [...] or score 4-6 of 10, Starting on 12/30/23 at 1128, PACU & Post-Op, Second line therapy Or oxyCODONE IR tablet 10 mg (Roxicodone)Jump to med 10 mg, oral, Every 4 hours PRN, severe pain or score 7-10 of 10, Starting on 12/30/23 at 1128, PACU & Post-Op, Second line [...] older documented in this encounter Care Teams Junior Underwriter Relationship Specialty Start Date End Date Elsewhere, Pcp PCP - General Family Medicine 12/01/20 documented as of this encounter
--- OUTSIDE RECORDS SUMMARY | 2024-03-16 09:17 | XMS_ITS | Encounter Summary ---
Author Organization [facility] Address [address] [place] [address] Care Team Providers Care Video System Repairer Name Role Phone Elsewhere, Pcp Primary Care Provider Unavailabl e Reason for Referral * Outpatient (Routine) - Authorized Specialty Diagnoses / Procedures Referred By Blayne joseph Referred To Contact Diagnoses Aftercare Total Hip Arthroplasty Arthroplasty Total Hip Replacement Status Post Left Procedures DX Hip And Pelvis Left 4+ Views Luciano Shepherd M.D. [address] [place] [phone] Phone: tel: fax: [facility] Referral ID Status Reason Start Date Expiration Date V isits Requested Visits Authorized [id number] Authorized 12/26/2023 12/25/2024 1 1 * Outpatient (Routine) - Authorized Specialty Diagnoses / Procedures Referred By Blayne joseph Referred To Contact Orthopedic Surgery Diagnoses Aftercare Total Hip Arthroplasty Arthroplasty Total Hip Replacement Status Post Left Luciano Shepherd M.D. [address] [place] [phone] Phone: tel: fax: Luciano Shepherd M.D. 200 [place] [phone] Phone: tel: fax: Referral ID Status Reason Start Date Expiration Date V isits Requested Visits Authorized [id number] Authorized 12/26/2023 06/26/2025 1 1 Reason for Visit * Outpatient (Routine) - Closed Specialty Diagnoses / Procedures Referred By Contac t Referred To Contact Orthopedic Surgery Diagnoses Primary Osteoarthritis Hip Left Pain Hip Left Anemia Aplastic (HCC) Preanesthetic Medical Exam Luciano Shepherd M.D. [address] [place] [phone] Phone: tel: fax: Luciano Shepherd M.D. [address] [place] [phone] Phone: tel: fax: Referral ID Status Reason Start Date Expiration Date Visits Re quested Visits Authorized [id number] Closed 10/24/2023 04/24/2025 1 1 Encounter Details Date Type Department Care Team (Latest Contact Info) Description 12/26/2023 10:00 AM CDT Office Visit Department of Orthopedic Surgery in [place], [place] [address] [place] [phone] Luciano Shepherd M.D. [address] [place] [phone] Cari Núñez R.N. [address] [place] [phone] Arthroplasty Total Hip Replacement Status Post Left (Primary Dx); Primary Osteoarthritis Hip Left; Pain Hip Left; Anemia Aplastic (HCC); Preanesthetic Medical Exam; Aftercare Total Hip Arthroplasty Social History Tobacco Use Types Packs/Day Years Used Date Smoking Tobacco: Never Smokeless Tobacco: Never Alcohol Use Standard Drinks/Week Comments Yes 4 (1 standard drink = 0.6 oz pur e alcohol) [facility] Utilities Answer Date Recorded In the [...] [facility] 10/18/2023 Comments Unknown Sex and Gender Information Value Date Recorded Sex Assigned at Female 01/02/2021 12:49 PM CDT Legal Sex Female 8:13 AM FAMILY CONSULTANT Gender Identity Female 01/02/2021 12:49 PM CDT Sexual Orientation Straight 01/02/2021 12 :49 PM CDT documented as of this encounter Progress Notes * Cari Núñez R.N. - 12/26/2023 10:00 AM CDT SUBJECTIVE Lisette [...] (Latest Contact Info) Description 03/31/2024 11:45 AM FAMILY CONSULTANT Appointment Department of Radiology in [place], [place] [address] [place] [phone] Luciano Shepherd M.D. [address] [place] [phone] 04/22/2024 1:00 PM FAMILY CONSULTANT Clinical Communication Virtual Review in [place], [place] 200 [place] [phone] 04/24/2024 10:15 AM FAMILY CONSULTANT Office Visit Department of Orthopedic Surgery in [place], [place] [address] [place] [phone] Luciano Shepherd M.D. [address] [place] [phone] Scheduled Orders Name Type Priority Associated Diagnoses [...] Arthroplasty documented in this encounter Care Teams Video System Repairer Relationship Specialty Start Date End Date Elsewhere, Pcp PCP - General Family Medicine 12/01/20 documented as of this encounter
--- OUTSIDE RECORDS SUMMARY | 2024-03-16 09:17 | XMS_ITS | Encounter Summary ---
Author Organization [facility] Address [address] [place] [address] Care Team Providers Care Measurement And Verification Engineer Name Role Phone Elsewhere, Pcp Primary Care Provider Unavailabl e Reason for Visit * Reason Comments Patient Education Encounter Details Date Type Department Care Team (Latest Contact Info) Description 12/11/2023 3:00 PM CDT Telemedicine Department of Patient Education in [place], [place] [address] [place] [phone] Mohit Stephenson M.D. [address] [place] [phone] Primary Osteoarthritis Hip Left Social History Tobacco Use Types Packs/Day Years Used Date Smoking Tobacco: Never Smokeless Tobacco: Never [facility] Utilities Answer Date Recorded In the past 12 months has [facility] [employer], gas, oil, or water [employer] threatened to shut off services in your [...] your living situation today? I have a [facility] place to live 10/18/2023 Comments Unknown Sex and Gender Information Value Date Recorded Sex Assigned at Female 01/02/2021 12:49 PM CDT Legal Sex Female 8:13 AM LIP CUTTER Gender Identity Female 01/02/2021 12:49 PM CDT Sexual Orientation Straight 01/02/2021 12 :49 PM CDT documented as of this encounter Plan of Treatment Upcoming Encounters Date Type Department Care Team (Latest Contact Info) Description 03/31/2024 11:45 AM LIP CUTTER Appointment Department of Radiology in [place], [place] [address] [place] [phone] Luciano Shepherd M.D. [address] [place] [phone] 04/22/2024 1:00 PM LIP CUTTER Clinical Communication Virtual Review in [place], [place] 200 [place] [phone] 04/24/2024 10:15 AM LIP CUTTER Office Visit Department of Orthopedic Surgery in [place], [place] [address] [place] [phone] Luciano Shepherd M.D. [address] [place] [phone] documented as of this encounter Visit Diagnoses Diagnosis Primary Osteoarthritis Hip Left documented in this encounter Care Teams Measurement And Verification Engineer Relationship Specialty Start Date End Date Elsewhere, Pcp PCP - General Family Medicine 12/01/20 documented as of this encounter
--- OUTSIDE RECORDS SUMMARY | 2024-03-16 09:17 | XMS_ITS | Encounter Summary ---
Author Organization [facility] Address [address] [place] [address] Care Team Providers Care Luggage Liner Name Role Phone Elsewhere, Pcp Primary Care Provider Unavailabl e Encounter Details Date Type Department Care Team (Latest Contact Info) Description 12/25/2023 10:19 AM CDT - 12/25/2023 11:59 PM CDT Hospital Encounter Department of Laboratory Medicine in [address] [phone] Luciano Shepherd M.D. [address] [place] [phone] Primary Osteoarthritis Hip Left Discharge Disposition: Home or Self Care Social History Tobacco Use Types Packs/Day Years Used Date Smoking Tobacco: Never Smokeless Tobacco: Never [facility] Utilities Answer Date Recorded In the past 12 months has [facility] [employer], gas, oil, or water [employer] threatened to shut off services in your [...] your living situation today? I have a [facility] place to live 10/18/2023 Comments Unknown Sex and Gender Information Value Date Recorded Sex Assigned at Female 01/02/2021 12:49 PM CDT Legal Sex Female 8:13 AM MARKETING PROFESSOR Gender Identity Female 01/02/2021 12:49 PM CDT [...] 12/30/2023 2:39 PM CDT 4 01/29/20 24 alendronate (Fosamax) 35 mg tablet Take 35 mg by mouth daily. 4 12/26/19 24 CeleBREX 200 mg capsule Take 200 mg by mouth as needed. 4 12/30/19 24 cholecalciferol (cholecalciferol) 1,000 Unit tablet Take 1 tablet by mouth daily. 1 12/26/19 24 valACYclovir (Valtrex) 1000 mg tablet Take 1,000 mg by mouth as needed. 9 12/26/19 24 documented as of this encounter Plan of Treatment Upcoming Encounters Date Type Department Care Team (Latest Contact Info) Description 03/31/2024 11:45 AM MARKETING PROFESSOR Appointment Department of Radiology in [place], [place] [address] [place] [phone] Luciano Shepherd M.D. [address] [place] [phone] 04/22/2024 1:00 PM MARKETING PROFESSOR Clinical Communication Virtual Review in [place], [place] 200 [place] [phone] 04/24/2024 10:15 AM MARKETING PROFESSOR Office Visit Department of Orthopedic Surgery in [place], [place] [address] [place] [phone] Luciano Shepherd M.D. [address] [place] [phone] documented as of this encounter Procedures Procedure [...] M.D. LAB BLOOD ADD-ON Final Resu lt [facility] [address] [place] [address], [facility] in [address] [address] * (ABNORMAL) Basic Metabolic Panel (12/25/2023 10:23 [...] M.D. LAB BLOOD ADD-ON Final Resu lt [facility] [address] [place] [phone], [facility] in [address] [address] documented in this encounter Visit Diagnoses Diagnosis Primary Osteoarthritis Hip Left documented in this encounter Care Teams Luggage Liner Relationship Specialty Start Date End Date Elsewhere, Pcp PCP - General Family Medicine 12/01/20 documented as of this encounter
--- OUTSIDE RECORDS SUMMARY | 2024-03-16 09:17 | XMS_ITS | Encounter Summary ---
Author Organization [facility] Address [address] [place] [address] Care Team Providers Care Sander Portable Machine Name Role Phone Elsewhere, Pcp Primary Care Provider Unavailabl e Reason for Visit * Physical Therapy (Routine) - Closed Specialty Diagnoses / Procedures Referred By Blayne joseph Referred To Contact Diagnoses Primary Osteoarthritis Hip Left Procedures PT Evaluate and treat Mohit Stephenson M.D. 200 [place] [address] Phone: tel: fax: [facility] Referral ID Status Reason Start Date Expiration Date Visits Re quested Visits Authorized [id number] Closed 10/23/2023 10/22/2024 1 1 Encounter Details Date Type Department Care Team (Latest Contact Info) Description 12/26/2023 11:00 AM CDT Comprehensive Visit Department of Physical Medicine and Rehabilitation in [place], [place] [address] [place] [phone] Mohit Stephenson M.D. [address] [place] [phone] Rossy Carlson SPT Primary Osteoarthritis Hip Left Social History Tobacco Use Types Packs/Day Years Used Date Smoking Tobacco: Never Smokeless Tobacco: Never Alcohol Use Standard Drinks/Week Comments Yes 4 (1 standard drink = 0.6 oz pur e alcohol) [facility] Utilities Answer Date Recorded In the past 12 months has th e [employer], gas, oil, or water [employer] threatened to shut off services in your [...] [facility] 10/18/2023 Comments Unknown Sex and Gender Information Value Date Recorded Sex Assigned at Female 01/02/2021 12:49 PM CDT Legal Sex Female 8:13 AM LENS INSERTER Gender Identity Female 01/02/2021 12:49 PM CDT Sexual Orientation Straight 01/02/2021 12 :49 PM CDT documented as of this encounter Consult Notes * Rossy Carlson, SPT - 12/26/2023 11:00 AM CDT Physical Therapy Musculoskeletal Outpatient Evaluation and Treatment SUBJECTIVE Patient's Name: Lisette Yuan Referring Provider: Mohit Stephenson M.D. Medical Diagnosis: 1. Primary Osteoarthritis Hip Left Reason for Referral: Pre op left total hip arthroplasty Payor: [facility] / Plan: [place]IE [place] / [...] home with adequate family or caregiver support [facility] Inpatient Short Form: *this assessment is based on the patient's functional mobility with post- operative restrictions and/or protocol. -[facility] Basic Mobility (V.2) How much help [...] 3-5 steps with a railing?: A Lot -[facility] Basic Mobility (V.2) Raw Score: 19 -[facility] Basic Mobility (V.2) Standardized Score: 42.48 Interpretation: Based on scoring guidelines using the raw score value: Those going to home had an average score at or above 18 Those going to facility had an average score at or below 17 Clinicians answer the -[facility] Inpatient Short Form based on observed [...] Treatment Time (min): 23 min BELKYS Rosales Cosigned by Tati Castaneda P.T., Chriss.P.TIgor at 12/26/2023 1:42 PM CDT Associated attestation - Tati Castaneda P.T., D.P.T. - 12/26/2023 1:42 PM CDT This therapist has reviewed all documentation and supervised today's session. This therapist agreeswith the plan of care developed in collaboration with the patient. documented in this encounter Plan of Treatment Upcoming Encounters Date Type Department Care Team (Latest Contact Info) Description 03/31/2024 11:45 AM LENS INSERTER Appointment Department of Radiology in [place], [place] [address] [place] [phone] Luciano Shepherd M.D. [address] [place] [phone] 04/22/2024 1:00 PM LENS INSERTER Clinical Communication Virtual Review in [place], [place] 200 [place] [phone] 04/24/2024 10:15 AM LENS INSERTER Office Visit Department of Orthopedic Surgery in [address] [phone] Luciano Shepherd M.D. [address] [place] [address], [place] [phone] documented as of this encounter Visit Diagnoses Diagnosis Primary Osteoarthritis Hip Left documented in this encounter Care Teams Sander Portable Machine Relationship Specialty Start Date End Date Elsewhere, Pcp PCP - General Family Medicine 12/01/20 documented as of this encounter
--- OUTSIDE RECORDS SUMMARY | 2024-03-16 09:17 | XMS_ITS | Encounter Summary ---
Author Organization [facility] Address [address] [place] [address] Care Team Providers Care Supervisor Product Inspection Name Role Phone Elsewhere, Pcp Primary Care Provider Unavailabl e Reason for Visit * Outpatient (Routine) - Closed Specialty Diagnoses / Procedures Referred By Blayne joseph Referred To Contact Anesthesiology Diagnoses Primary Osteoarthritis Hip Left Pain Hip Left Anemia Aplastic (HCC) Preanesthetic Medical Exam Luciano Shepherd M.D. [address] [place] [phone] Phone: tel: fax: [facility] Referral ID Status Reason Start Date Expiration Date Visits Re quested Visits Authorized [id number] Closed 10/24/2023 04/24/2025 1 1 Encounter Details Date Type Department Care Team (Latest Contact Info) Description 12/26/2023 3:00 PM CDT Comprehensive Visit Preoperative Evaluation Center in [place], [place] 200 [place] [phone] Luciano Shepherd M.D. [address] [place] [phone] Salvador Leonard, JENNIFER, C.N.P., M.S. 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[facility]) Social History Tobacco Use Types Packs/Day Years Used Date Smoking Tobacco: Never Smokeless Tobacco: Never Tobacco Cessation:Counseling Given: Not Answered Alcohol Use Standard Drinks/Week Comments Yes 4 (1 standard drink = 0.6 oz pur e alcohol) [facility] Utilities Answer Date Recorded In the past 12 months has e [employer], gas, oil, or water [employer] threatened to shut off services in your [...] PM CDT Legal Sex Female 8:13 AM FRONT WINDOW CASHIER Gender Identity Female 01/02/2021 12:49 PM CDT Sexual Orientation Straight 01/02/2021 12 :49 PM CDT documented as of this encounter Last Filed Vital Signs Vital Sign Reading Time Taken Comments Blood Pressure 124/81 12/26/2023 2:44 PM CDT Pulse 72 12/26/2023 2:44 PM CDT Temperature 36 C (96.8 F) 12/26/2023 2:44 PM CDT Respiratory Rate - - Oxygen Saturation 99% 12/26/2023 2:44 PM CDT Inhaled Oxygen Concentration - - Weight 93 kg (205 lb 0.4 oz) 12/26/2023 2:44 PM CDT Height 171 cm (5' 7.32) 12/26/2023 2:44 PM CDT Body Mass Index 31.8 12/26/2023 2:44 PM CDT documented in this encounter H&P Notes * Salvador Leonard, JENNIFER, C.N.P., M.S. - 12/26/2023 3:00 PM CDT [...] from 12/26/2023 in Preoperative Evaluation Center in [place], [place] DASI Total Score 36.7 Estimated V02 [...] Get Ready for Your Surgery or Procedure: [facility] 3596-07 rev 0124. Written and verbal instructions [...] (Latest Contact Info) Description 03/31/2024 11:45 AM FRONT WINDOW CASHIER Appointment Department of Radiology in [place], [place] [address] [place] [phone] Luciano Shepherd M.D. [address] [place] [phone] 04/22/2024 1:00 PM FRONT WINDOW CASHIER Clinical Communication Virtual Review in [place], [place] [address] [place] [phone] 04/24/2024 10:15 AM FRONT WINDOW CASHIER Office Visit Department of Orthopedic Surgery in [place], [place] [address] [place] [phone] Luciano Shepherd M.D. [address] [place] [phone] documented as of this encounter Visit Diagnoses [...] (HCC) documented in this encounter Care Teams Supervisor Product Inspection Relationship Specialty Start Date End Date Elsewhere, Pcp PCP - General Family Medicine 12/01/20 documented as of this encounter
--- OUTSIDE RECORDS SUMMARY | 2024-03-16 09:17 | XMS_ITS | Clinical Summary ---
Author Organization [facility] Address [place], [place] [address] Care Team Providers Care Swing Manager Name Role Phone Darby Bajwa MD Primary Care Provider [phone] Allergies Active Allergy Reactions Criticality Noted Date [...] daily. 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
--- OUTSIDE RECORDS SUMMARY | 2024-03-16 09:17 | XMS_ITS | Encounter Summary ---
Author Organization [facility] Address [address] [place] [address] Care Team Providers Care Master Printer Name Role Phone Elsewhere, Pcp Primary Care Provider Unavailabl e Reason for Visit * Reason Onset Date Comments Document needed from Pre-cert 11/20/2023 Encounter Details Date Type Department Care Team (Latest Contact Info) Description 11/20/2023 Clinical Communication Department of Orthopedic Surgery in [place], [place] [address] [place] [phone] Luciano Shepherd M.D. [address] [place] [phone] Document needed from Pre-cert Social History Tobacco Use Types Packs/Day Years Used Date Smoking Tobacco: Never Smokeless Tobacco: Never [facility] Utilities Answer Date Recorded In the past 12 months has [employer], gas, oil, or water [employer] threatened to shut off services in your [...] your living situation today? [facility] 10/18/2023 Comments Unknown Sex and Gender Information Value Date Recorded Sex Assigned at Female 01/02/2021 12:49 PM CDT Legal Sex Female 8:13 AM BANKING SERVICES CLERK Gender Identity Female 01/02/2021 12:49 PM CDT Sexual Orientation Straight 01/02/2021 12 :49 PM CDT documented as of this encounter Plan of Treatment Upcoming Encounters Date Type Department Care Team (Latest Contact Info) Description 03/31/2024 11:45 AM BANKING SERVICES CLERK Appointment Department of Radiology in [place], [place] [address] [place] [phone] Luciano Shepherd M.D. [address] [place] [phone] 04/22/2024 1:00 PM BANKING SERVICES CLERK Clinical Communication Virtual Review in [place], [place] 200 [place] [phone] 04/24/2024 10:15 AM BANKING SERVICES CLERK Office Visit Department of Orthopedic Surgery in [place], [place] [address] [place] [phone] Luciano Shepherd M.D. [address] [place] [phone] documented as of this encounter Visit Diagnoses Not on filedocumented in this encounter Care Teams Master Printer Relationship Specialty Start Date End Date Elsewhere, Pcp PCP - General Family Medicine 12/01/20 documented as of this encounter
--- OUTSIDE RECORDS SUMMARY | 2024-03-16 09:17 | XMS_ITS | Encounter Summary ---
Author Organization [facility] Address [address] [place] [address] Care Team Providers Care Crew Team Member Name Role Phone Elsewhere, Pcp Primary Care Provider Unavailabl e Encounter Details Date Type Department Care Team (Latest Contact Info) Description 12/24/2023 10:15 AM CDT Clinical Communication Virtual Review in [place], [place] [address] [place] [phone] Social History Tobacco Use Types Packs/Day Years Used Date Smoking Tobacco: Never Smokeless Tobacco: Never [facility] Utilities Answer Date Recorded In the [...] your living situation today? I have a [facility] place to live 10/18/2023 Comments Unknown Sex and Gender Information Value Date Recorded Sex Assigned at Female 01/02/2021 12:49 PM CDT Legal Sex Female 8:13 AM UNEMPLOYMENT INSURANCE DIRECTOR Gender Identity Female 01/02/2021 12:49 PM CDT Sexual Orientation Straight 01/02/2021 12 :49 PM CDT documented as of this encounter Plan of Treatment Upcoming Encounters Date Type Department Care Team (Latest Contact Info) Description 03/31/2024 11:45 AM UNEMPLOYMENT INSURANCE DIRECTOR Appointment Department of Radiology in [place], [place] [address] [place] [phone] Luciano Shepherd M.D. [address] [place] [phone] 04/22/2024 1:00 PM UNEMPLOYMENT INSURANCE DIRECTOR Clinical Communication Virtual Review in [place], [place] 200 [place] [phone] 04/24/2024 10:15 AM UNEMPLOYMENT INSURANCE DIRECTOR Office Visit Department of Orthopedic Surgery in [place], [place] [address] [place] [phone] Luciano Shepherd M.D. [address] [place] [phone] documented as of this encounter Visit Diagnoses Not on filedocumented in this encounter Care Teams Crew Team Member Relationship Specialty Start Date End Date Elsewhere, Pcp PCP - General Family Medicine 12/01/20 documented as of this encounter
--- OUTSIDE RECORDS SUMMARY | 2024-03-16 09:17 | XMS_ITS | Encounter Summary ---
Author Organization [facility] Address [address] [place] [address] Care Team Providers Care Grinder And Honer Operator Automatic Name Role Phone Elsewhere, Pcp Primary Care Provider Unavailabl e Reason for Visit * Outpatient (Routine) - Closed Specialty Diagnoses / Procedures Referred By Blayne joseph Referred To Contact Allergy and Immunology Diagnoses Allergy Antibiotic Personal History Luciano Shepherd M.D. [address] [place] [phone] Phone: tel: fax: [facility] Referral ID Status Reason Start Date Expiration Date Visits Re quested Visits Authorized [id number] Closed 10/24/2023 04/24/2025 1 1 Encounter Details Date Type Department Care Team (Latest Contact Info) Description 12/26/2023 2:00 PM CDT Comprehensive Visit Division of Allergic Diseases in [place], [place] [address] [place] [phone] Kailey Li P.A.-C., M.S. [address] [place] [phone] Allergy Antibiotic Personal History (Primary Dx) Social History Tobacco Use Types Packs/Day Years Used Date Smoking Tobacco: Never Smokeless Tobacco: Never Alcohol Use Standard Drinks/Week Comments Yes 4 (1 standard drink = 0.6 oz pur e alcohol) [facility] Utilities Answer Date Recorded In [...] [facility] 10/18/2023 Comments Unknown Sex and Gender Information Value Date Recorded Sex Assigned at Female 01/02/2021 12:49 PM CDT Legal Sex Female 8:13 AM HELPER ANIMAL LABORATORY Gender Identity Female 01/02/2021 12:49 PM CDT Sexual Orientation Straight 01/02/2021 12 :49 PM CDT documented as of this encounter Consult Notes * Kailey Li P.A.-C., M.S. - 12/26/2023 2:00 PM CDT Images from the original note were not included. Chief complaint: Personal history of cephalosporin allergy Supervised by: Referring provider: Luciano Shepherd M.D. 200 [place] [address] SUBJECTIVE HPI: #1 Personal history of cephalosporin [...] certain that the symptoms were sales representative canvas products of an allergic reaction, but because of [...] 12/26/2023 in Division of Allergic Diseases in [place], [place] Penicillin and other antibiotics (Prick) Histamine [...] historyof a reaction to a cephalosporin, Lisette AbranIgor Yuan would have been considered at increased [...] (Latest Contact Info) Description 03/31/2024 11:45 AM HELPER ANIMAL LABORATORY Appointment Department of Radiology in [place], [place] [address] [place] [address] Luciano Shepherd M.D. [address] [place] [phone] 04/22/2024 1:00 PM HELPER ANIMAL LABORATORY Clinical Communication Virtual Review in [place], [place] 200 [place] [phone] 04/24/2024 10:15 AM HELPER ANIMAL LABORATORY Office Visit Department of Orthopedic Surgery in [place], [place] [address] [place] [phone] Luciano Shepherd M.D. [address] [place] [phone] documented as of this encounter Visit Diagnoses Diagnosis Allergy Antibiotic Personal History- Primary documented in this encounter Care Teams Grinder And Honer Operator Automatic Relationship Specialty Start Date End Date Elsewhere, Pcp PCP - General Family Medicine 12/01/20 documented as of this encounter
--- OUTSIDE RECORDS SUMMARY | 2024-03-16 09:17 | XMS_ITS | Encounter Summary ---
Author Organization [facility] Address [address] [place] [address] Care Team Providers Care Dump Truck Driver Name Role Phone Elsewhere, Pcp Primary Care Provider Unavailabl e Reason for Visit * Outpatient (Routine) - Closed Specialty Diagnoses / Procedures Referred By Blayne jsoeph Referred To Contact Allergy and Immunology Diagnoses Allergy Drug Personal History Procedures Allergy and Immunology - Single drug allergy eConsult Carroll Biggs M.B.B.S., Ph.D. [address] [place] [phone] Phone: tel: fax: [facility] Referral ID Status Reason Start Date Expiration Date Visits Re quested Visits Authorized [id number] Closed 12/24/2023 12/23/2024 1 1 Encounter Details Date Type Department Care Team (Latest Contact Info) Description 12/26/2023 8:00 AM CDT Internal E-Consult Division of Allergic Diseases in [place], [place] [address] [place] [phone] Kailey Li P.A.-C., M.S. [address] [place] [phone] Allergy Drug Personal History (Primary Dx) Social History Tobacco Use Types Packs/Day Years Used Date Smoking Tobacco: Never Smokeless Tobacco: Never Alcohol Use Standard Drinks/Week Comments Yes 4 (1 standard drink = 0.6 oz pur e alcohol) [facility] Utilities Answer Date Recorded In [...] your living situation today? I have a [facility] place to live 10/18/2023 Comments Unknown Sex and Gender Information Value Date Recorded Sex Assigned at Female 01/02/2021 12:49 PM CDT Legal Sex Female 8:13 AM REPORTING COORDINATOR Gender Identity Female 01/02/2021 12:49 PM CDT [...] Li PA-C, I am looking up the [facility] skin tests for 12/26/23. Patient has ceftriaxone allergy with anaphylaxis reaction listed as an allergy. Cefazolin skin testing has been ordered. , Please review and place orders as needed. If no additional orders are recommended, respond back to the RST LOLA URBINA tangled yarn spool straightener with how you would like to handle [...] (Latest Contact Info) Description 03/31/2024 11:45 AM REPORTING COORDINATOR Appointment Department of Radiology in [place], [place] [address] [place] [phone] Luciano Shepherd M.D. [address] [place] [phone] 04/22/2024 1:00 PM REPORTING COORDINATOR Clinical Communication Virtual Review in [place], [place] [address] [place] [phone] 04/24/2024 10:15 AM REPORTING COORDINATOR Office Visit Department of Orthopedic Surgery in [place], [place] [address] [place] [phone] Luciano Shepherd M.D. [address] [place] [phone] documented as of this encounter Visit Diagnoses Diagnosis Allergy Drug Personal History- Primary documented in this encounter Care Teams Dump Truck Driver Relationship Specialty Start Date End Date Elsewhere, Pcp PCP - General Family Medicine 12/01/20 documented as of this encounter
== END 2024-03-16 09:13 | disposition home or self-care (01) ==
PROVIDERS: PCP Internal Medicine; Visit Provider Registered Nurse
DX: Z12.31 Encounter for screening mammogram for malignant neoplasm of breast (principal); R92.333 Mammographic heterogeneous density, bilateral breasts
CPT/HCPCS: 77063; 77067

== ENCOUNTER 2024-12-21 08:54 | Outpatient (CLI) | payer BC, SELFPAY | END 2024-12-21 08:55 | disposition home or self-care (01) | LOC: NFLDREF 12-24 10:39 | PROVIDERS: PCP Internal Medicine; Referring Provider Internal Medicine; Visit Provider Internal Medicine | DX: E78.5 Hyperlipidemia, unspecified (principal); E03.9 Hypothyroidism, unspecified; M85.80 Other specified disorders of bone density and structure, unspecified site | CPT/HCPCS: 80061; 82306; 84439; 84443 ==

== ENCOUNTER 2025-03-19 15:22 | Outpatient (CLI) | payer BC, SELFPAY ==
--- NOTE | 2025-03-19 15:20 | CRLHL7_ITS ---
For Patients: As a result of the Century Cures Act, medical imaging exams and procedure reports are released immediately into your electronic medical record. You may view this report before your referring provider. If you have questions, please contact your health care provider. INDICATION: BILATERAL SCREENING MAMMOGRAM, ASYMPTOMATIC 64 Y/O FEMALE COMPARISON: 03/16/2024, 03/15/2023, 01/17/2022 TECHNIQUE: Digital mammogram in CC and MLO projections including computer-aided detection (CAD) and tomosynthesis. BREAST COMPOSITION: The breasts are heterogeneously dense, which may obscure small masses. FINDINGS: No suspicious findings. ASSESSMENT: BI-RADS 1 Negative RECOMMENDATION: Annual screening mammogram. A lay language report of this examination will be provided to the patient. Dictated by: Slava Pacheco MD @ 03/22/2025 10:34:09 (Electronically Signed)
== END 2025-03-19 15:23 | disposition home or self-care (01) ==
PROVIDERS: PCP Internal Medicine; Visit Provider Registered Nurse
DX: Z12.31 Encounter for screening mammogram for malignant neoplasm of breast (principal); R92.333 Mammographic heterogeneous density, bilateral breasts
CPT/HCPCS: 77063; 77067